=== PATIENT | female | born 2000 | race Caucasian/White ===

== ENCOUNTER 2022-11-22 14:45 | Outpatient (AMB) | payer OTHER, SELFPAY ==
--- NOTE | 2022-11-22 14:47 | MHC.OFFWIV ---
Intake Vital Signs 11/22/22 14:53 Height 5 ft 3 in Weight 152 lb BMI 26.9 BP 112/64 Blood Pressure Location Rt brachial Position Sitting Pulse 71 Pulse Source Pulse Oximeter Temp 97.8 F Temp Source Temporal Artery Scan Pulse Oximetry (%) 99 Intake Visit Reasons: EP, UTI? Intake Note: pt is here for possible uti Patient Tobacco Use Status: Never used Tobacco Allergies No Known Allergies Allergy (Verified 11/22/22 14:47) Do you need a note to return to daycare/school/sports/work: Yes HPI HPI Comments History of Present Illness Details This is a 22-year-old female who presents to the office today for sick visit. Patient complaining of urinary symptoms including dysuria and increased urinary frequency for the past 2 weeks that have been worsening over the past several days. She reports feeling weak and fatigued but she otherwise denies any fevers/chills or systemic symptoms including abdominal pain or nausea/vomiting/diarrhea. She denies any flank or back pain. PFSH Social History Patient Tobacco Use Status: Never used Tobacco Review of Systems Const All systems reviewed & are unremarkable except as noted in HPI and below Reports no additional complaints Eyes Reports no additional complaints ENT Reports no additional complaints Card Reports no additional complaints Resp Reports no additional complaints GI Reports no additional complaints Reports no additional complaints Musc Reports no additional complaints Skin/Breast Reports system reviewed and no additional complaints, except as documented Neuro Reports no additional complaints Psych Reports no additional complaints Endo Reports no additional complaints Will/Lymph Reports no additional complaints Aller/Immun Reports no additional complaints Physical Exam Vital Signs: Last Vital Signs Temp 97.8 F 11/22/22 14:53 Pulse 71 11/22/22 14:53 BP 112/64 11/22/22 14:53 Pulse Ox 99 11/22/22 14:53 BMI result Body Mass Index 26.9 Const General: cooperative, healthy appearing, no acute distress and well developed Orientation/consciousness: patient oriented x3 HEENT Head: Yes normal to inspection Ears: hearing grossly normal bilaterally General nose exam: Normal external nose present Face and sinus: Yes normal facial exam Mouth: Normal oral and palatal mucosa present Eyes General: appearance normal, both eyes and all related structures Pupils: Equal, round and reactive pupils present EOM: EOMs intact bilaterally Resp Effort & Inspection: normal respiratory effort and no respiratory distress Auscultation: clear to auscultation bilaterally Cardio Rate: regular rate Rhythm: regular rhythm Heart sounds: no gallops, no murmurs and no rubs Peripheral pulses: Peripheral pulses 2+ throughout GI Inspection: No distended Palpation (GI): Soft to palpation and nontender Auscultation: normal bowel sounds General: Yes no CVA tenderness Back/Spine/Pelvis Back: no CVA tenderness Skin General skin exam: no rashes or lesions noted Neuro General: patient oriented x3 Cranial nerves: Yes CN's II-XII intact bilaterally and Yes Equal, round and reactive pupils present Gait exam (Neuro): Normal gait present Motor exam (neuro): 5/5 motor strength present throughout Extrem General: Yes normal to inspection, Yes full ROM and Yes no clubbing, cyanosis or edema Psych Appearance: grossly normal Mental Status: mental status grossly normal Results AMB Urinalysis, Automated UA Leukoctes 15 Louann/uL Last Edit by Ana Maria Alas [facility] on 11/22/22 15:16 +- Ana Maria Alas 11/22/22 15:16 UA Nitrite Negative Last Edit by Ana Maria Alas [facility] on 11/22/22 15:16 UA Urobilinogen 0.2 mg/dL Last Edit by Ana Maria Alas [facility] on 11/22/22 15:16 UA Protein 0 mg/dL Last Edit by Ana Maria Alas [facility] on 11/22/22 15:16 UA pH 5.5 Last Edit by Ana Maria Alas [facility] on 11/22/22 15:16 UA Blood 0 Peewee/uL Last Edit by Ana Maria Alas [facility] on 11/22/22 15:16 UA Specific [place] 1.025 Last Edit by Ana Maria Alas [facility] on 11/22/22 15:16 UA Ketone Negative Last Edit by Ana Maria Alas [facility] on 11/22/22 15:16 UA Bilirubin 0 mg/dL Last Edit by Ana Maria Alas [facility] on 11/22/22 15:16 UA Glucose 0 mg/dL Last Edit by Ana Maria Alas [facility] on 11/22/22 15:16 Results Reviewed Results Reviewed: Laboratory Last Values Urine pH (Auto) 5.5 11/22/22 15:14 Specific [place] (Auto) 1.025 11/22/22 15:14 Urine Protein (Auto) 0 mg/dL 11/22/22 15:14 Glucose (UA)(Auto) 0 mg/dL 11/22/22 15:14 Urine Ketones (Auto) Negative 11/22/22 15:14 Urine Blood (Auto) 0 Peewee/uL 11/22/22 15:14 Urine Nitrite (Auto) Negative 11/22/22 15:14 Urine Bilirubin (Auto) 0 mg/dL 11/22/22 15:14 Urine Urobilinogen (Auto) 0.2 mg/dL 11/22/22 15:14 Leukocyte Esterase (Auto) 15 Louann/uL 11/22/22 15:14 Assessment & Plan Assessment & Plan (1) UTI (urinary tract infection): Code(s): N39.0 - Urinary tract infection, site not specified Plan: This is a 22-year-old female who presented to the office today complaining of urinary symptoms. Urinalysis shows positive leukocyte esterase consistent with an acute uncomplicated urinary tract infection. She has no flank pain or systemic symptoms to suggest pyelonephritis or ascending infection. Her vital signs are stable and her physical exam is benign. Patient is overall nontoxic appearing. Patient is safe to be discharged home. She was sent home on p.o. sulfamethoxazole trimethoprim twice daily x7 days as well as p.o. pyridium 3 times daily as needed x3 days. Urine was also sent for chlamydia/gonorrhea testing per patient request. Patient was advised to follow-up here or go directly to the emergency room if she were to develop flank/back pain, fever/chills, nausea/vomiting, or other systemic symptoms. Patient verbalized her understanding and she is in agreement with the plan. Orders: Orders CT NG by PCR Today R30.0 - Dysuria AMB Urinalysis Automated Today Z13.9 - Encounter for screening, unspecified Medications: New sulfamethoxazole-trimethoprim 800-160 mg (Bactrim DS) 1 tab PO BID 14 tabs 0RF phenazopyridine 200 mg PO TID PRN 9 tabs 0RF pain Coding Level of Care Code Est Pt Level 3 (61807) Diagnoses UTI (urinary tract infection) N39.0
[2022-11-22 14:53] VITALS: BP 112/64; PULSE 71; TEMP 36.6; O2SAT 99; BMI 26.9
== END 2022-11-22 15:34 | disposition home or self-care (01) ==
PROVIDERS: PCP Internal Medicine; Visit Provider Physician Assistant Medical
DX: N39.0 Urinary tract infection, site not specified (principal); R30.0 Dysuria
CPT/HCPCS: 81003; 99213

== ENCOUNTER 2022-11-22 15:36 | Outpatient (REF) | payer OTHER, SELFPAY | END 2022-11-22 15:37 | disposition home or self-care (01) | LOC: HO.LAB 15:36 | PROVIDERS: Visit Provider Physician Assistant Medical | DX: Z13.89 Encounter for screening for other disorder (principal) ==

== ENCOUNTER 2022-11-23 11:26 | Outpatient (REF) | payer OTHER, SELFPAY ==
[2022-11-23 14:48] LABS: CT PCR NOT DETECTED (Not Detect.); NG PCR NOT DETECTED (Not Detect.)
== END 2022-11-23 11:27 | disposition home or self-care (01) ==
LOC: HO.LNP 11:26
PROVIDERS: Visit Provider Physician Assistant Medical
DX: R30.0 Dysuria (principal)
CPT/HCPCS: 0353U

== ENCOUNTER 2023-04-09 08:26 | Outpatient (AMB) | payer OTHER, SELFPAY ==
--- NOTE | 2023-04-09 08:39 | MHC.OFFWIV ---
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 No urgency PFSH Social History Patient Tobacco Use Status: Never used Tobacco Review of Systems Const Denies chills, Denies fatigue and Denies fever(s) GI Reports abdominal pain, Reports constipation, Denies diarrhea, Denies nausea and Denies vomiting Denies abnormal menses, Denies abnormal vaginal bleeding, Denies hematuria, Denies urinary frequency, Denies difficulty voiding, Reports dysuria, Denies urinary urgency, Reports vaginal discharge and Reports vaginal pruritus Musc Denies back pain Skin/Breast Denies erythema and Denies rash Endo Denies fatigue Physical Exam Vital Signs: Last Vital Signs Temp 97.9 F 04/09/23 08:40 Pulse 76 04/09/23 08:40 BP 110/62 04/09/23 08:40 Pulse Ox 98 04/09/23 08:40 Oxygen Delivery Method Room Air 04/09/23 08:40 BMI result Body Mass Index 26.9 General: Non-toxic, NAD. Speaking full sentences. Skin: Warm dry throughout Respiratory: CTA bilaterally. No wheezes, rales or rhonchi Cardiac: RRR. No murmur Abdominal: No distention. : No external vaginal edema or rashes. No labial abscess or cyst. Verbal consent obtained and pelvic examination revealed slught edema of superior vaginal wall without discharge or masses noted. Cervix closed and in proper position. MA present during pelvic examination MSK: Full ROM extremities. Neurology: A/O. No aphasia or facial droop. Gait without abnormality Psych: Good mood and affect Results AMB Urinalysis, Automated UA Leukoctes 0 Louann/uL Last Edit by Catie Epps CMA on 04/09/23 08:57 UA Nitrite Negative Last Edit by Catie Epps, [facility] on 04/09/23 08:57 UA Urobilinogen 0.2 mg/dL Last Edit by Catie Epps, [facility] on 04/09/23 08:57 UA Protein 0 mg/dL Last Edit by Catie Epps, [facility] on 04/09/23 08:57 UA pH 6.0 Last Edit by Catie Epps, [facility] on 04/09/23 08:57 UA Blood 0 Peewee/uL Last Edit by Catie Epps, [facility] on 04/09/23 08:57 UA Specific [place] 1.030 Last Edit by Catie Epps, [facility] on 04/09/23 08:57 UA Ketone Negative Last Edit by Catie Epps CMA on 04/09/23 08:57 UA Bilirubin 0 mg/dL Last Edit by Catie Epps CMA on 04/09/23 08:57 UA Glucose 0 mg/dL Last Edit by Catie Epps CMA on 04/09/23 08:57 AMB Test Urine AMB Test Urine Negative Last Edit by Adelina Rojas CMA on 04/09/23 09:05 Results Reviewed Results Reviewed: Laboratory Last Values Urine pH (Auto) 6.0 04/09/23 08:55 Specific [place] (Auto) 1.030 04/09/23 08:55 Urine Protein (Auto) 0 mg/dL 04/09/23 08:55 Glucose (UA)(Auto) 0 mg/dL 04/09/23 08:55 Urine Ketones (Auto) Negative 04/09/23 08:55 Urine Blood (Auto) 0 Peewee/uL 04/09/23 08:55 Urine Nitrite (Auto) Negative 04/09/23 08:55 Urine Bilirubin (Auto) 0 mg/dL 04/09/23 08:55 Urine Urobilinogen (Auto) 0.2 mg/dL 04/09/23 08:55 Leukocyte Esterase (Auto) 0 Louann/uL 04/09/23 08:55 Assessment & Plan Assessment & Plan (1) Vaginal discharge: Code(s): N89.8 - Other specified noninflammatory disorders of vagina Plan: Patient seen and evaluated. Vaginal examination was completed and there was no sign of trauma or labial cyst/abscess. No uterine prolapse or mass urine - infection hcg - chlamydia/gonorrhea: urine obtained and sent BV panel: obtained after pelvic examination [employer] follow up ER if worse Vaginal rest Patient gave verbal understanding and had no additional questions or concerns at time of discharge All questions answered Orders: Orders AMB HCG Urine Test Today N89.8 - Other specified noninflammatory disorders of vagina Bacterial Vaginosis Panel Today N89.8 - Other specified noninflammatory disorders of vagina AMB Urinalysis Automated Today Z13.9 - Encounter for screening, unspecified CT NG by PCR Today N89.8 - Other specified noninflammatory disorders of vagina Coding Level of Care Code Est Pt Level 4 (20659) Diagnoses Vaginal discharge N89.8
[2023-04-09 08:40] VITALS: BP 110/62; PULSE 76; TEMP 36.6; O2SAT 98; BMI 26.9
== END 2023-04-09 10:13 | disposition home or self-care (01) ==
PROVIDERS: PCP Internal Medicine; Visit Provider Physician Assistant
DX: N89.8 Other specified noninflammatory disorders of vagina (principal); R30.0 Dysuria; Z32.02 Encounter for pregnancy test, result negative
CPT/HCPCS: 81003; 81025; 99214

== ENCOUNTER 2023-04-09 10:51 | Outpatient (REF) | payer OTHER, SELFPAY ==
[2023-04-09 14:38] LABS: CT PCR NOT DETECTED (Not Detect.); NG PCR NOT DETECTED (Not Detect.)
[2023-04-10 09:22] LABS: BV Int Neg Control Negative (Negative); BV Int Pos Control Positive (Positive)
== END 2023-04-09 10:52 | disposition home or self-care (01) ==
LOC: HO.LAB 10:51
PROVIDERS: Visit Provider Physician Assistant
DX: N89.8 Other specified noninflammatory disorders of vagina (principal)
CPT/HCPCS: 0353U; 87480; 87510; 87660

== ENCOUNTER 2023-06-09 09:47 | Outpatient (AMB) | payer OTHER, SELFPAY ==
[2023-06-09 10:04] VITALS: BP 100/70; PULSE 88; O2SAT 98; BMI 26.5
--- NOTE | 2023-06-09 10:04 | MHC.PC.OV ---
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 She is up-to-date with her cervical cancer screening done in 2020 as per her medical record. Has history of anxiety disorder, previously on Zoloft 50 mg daily which she stopped taking as she states it was making her feel like a zombie. Would like a referral to see a therapist, but does not want to start any medications at present time. She has an appointment already scheduled with an OBGYN [facility] later this week. Complains of feeling tired all the time, with difficulty keeping her concentration and focus at work. [facility] Medical History (Updated 06/09/23 @ 15:09 by Yarelis Crane MD) Mixed anxiety and depressive disorder History of hemorrhoids Family history of thyroid cancer Family History (Updated 06/09/23 @ 10:54 by Yarelis Crane MD) Mother Acquired hypothyroidism Mental health disorder Mother No problems noted. Maternal Grandmother Thyroid cancer Breast cancer Maternal Grandfather Essential hypertension Coronary artery arteriosclerosis Diabetes mellitus Brother Rheumatoid arthritis Social History Housing: Apartment Patient Tobacco Use Status: Never used Tobacco e-Cigarette/Vaping Use: Currently Using service: Yes Current occupational status: employed Cognitive needs: No Hearing needs: No Vision needs: Yes Female Reproductive History Menstrual Date of last menstrual period: 05/08/23 control method: none Date of last pap smear: 07/19/20 (Done in the [facility] while she is on active due) Other: Goes to [facility] [place] in [place], has an appointment later this week for her routine Pap and pelvic exam and to discuss control Questionnaire PHQ-9 Over the last 2 weeks, how often have you been bothered by any of the following problems? 1. Little interest or pleasure in doing things: several days 2. Feeling down, depressed, or hopeless: more than half the days 3. Trouble falling or staying asleep, or sleeping too much: nearly every day 4. Feeling tired or having little energy: more than half the days 5. Poor appetite or overeating: several days 6. Feeling bad about yourself - or that you are a failure or have let yourself or your family down: several days 7. Trouble concentrating on things, such as reading the newspaper or watching television: nearly every day 8. Moving or speaking so slowly that other people could have noticed. Or the opposite - being so fidgety or restless that you have been moving around a lot more than usual: more than half the days 9. Thoughts that you would be better off or of hurting yourself in some way: not at all Total score: 15 Depression Screening Interpretation: Positive (Referred to Anjana certified mental health worker for help with referral to see a therapist) Depression Screening Follow-up: Existing condition and Community Mental Health Worker F/U Depression Screening Done: Yes 03504 - PHQ-9 Billing: Yes Source: Developed by Drs. Jono Russo, Steph Alanis, Roberto Garcia and colleagues, with an educational lawson from [employer]. Thrive Questionnaire Date Thrive assessed: 06/09/23 I am a: Patient What is your living situation today?: I have a steady place to live Within the past 12 months, did the food you bought not last and you didn't have the money to get more?: Sometimes True Within the past 12 months, did you worry whether your food would run out before you got money to buy more?: Never true Do you have trouble paying for medicines?: No Do you have trouble getting transportation to medical appointments?: No Do you have trouble taking care of your child, family member or friend?: No Do you have trouble with day-to-day activities such as bathing, preparing meals, shopping, managing finances, etc.?: No Are you currently unemployed and looking for a job?: No Are you interested in more education?: No THRIVE Score: 1 AUDIT C Alcohol Use Questionnaire (AUDIT-C) 1. How often do you have a drink containing alcohol?: Never Total Score: 0 MOIRA-7 AMB Questionnaire MOIRA-7 Date MOIRA - 7 assessed: 06/09/23 Feeling nervous, anxious, or on edge: 2 = More than half the days Not being able to stop or control worryin = Several days Worrying too much about different things: 2 = More than half the days Trouble relaxin = Several days Being so restless that it is hard to sit still: 2 = More than half the days Becoming easily annoyed or irritable: 3 = Nearly every day Feeling afraid as if something awful might happen: 1 = Several days Total MOIRA-7 score (0-4 normal; 5-9 mild; 10-14 moderate; 15-21 severe): 12 Source: Developed by Drs. Jono Russo, Steph Alanis, Roberto Garcia and colleagues, with an educational lawson from [employer]. MOIRA-7 Assessment Billing MOIRA-7 Assessment Tool: MOIAR-7 Assessment 01286 Review of Systems Const Reports as per HPI and Reports no additional complaints Eyes Details: Up-to-date with her eye exam went to [place], [place] , prescribed blue light glasses for Eye strain ENT Reports no additional complaints Card Denies chest pain, Denies rapid heart rate, Denies irregular heart rhythm, Denies lightheadedness and Denies dyspnea Resp Denies cough and Denies dyspnea GI Denies abdominal pain, Denies change in bowel habits, Denies change in stool character and Denies heartburn Reports no additional complaints Musc Reports no additional complaints Skin/Breast Denies breast pain, Denies breast mass and Denies rash Neuro Reports no additional complaints Psych Reports as per HPI Endo Reports no additional complaints Will/Lymph Reports no additional complaints Aller/Immun Reports no additional complaints Physical exam (Primary Care) Vital Signs: Last Vital Signs Pulse 88 06/09/23 10:04 BP 100/70 06/09/23 10:04 Pulse Ox 98 03/11/24 10:04 Oxygen Delivery Method Room Air 06/09/23 10:04 BMI result Body Mass Index 26.5 Tobacco/Smoking Status: Tobacco use Status Tobacco use date assessed 06/09/23 06/09/23 10:23 Patient Tobacco Use Status Never used Tobacco 06/09/23 10:07 e-Cigarette/Vaping Use Currently Using 06/09/23 10:23 PHQ-9: PHQ-9 Score PHQ-9: Total score 15 06/09/23 10:54 Depression Screening Interpretation: Positive (Referred to Anjana certified mental health worker for help with referral to see a therapist) Depression Screening Follow-up: Existing condition and Community Mental Health Worker F/U Thrive Assessment: Date of Thrive Assessment Date Thrive assessed 06/09/23 06/09/23 10:28 Const General: no acute distress and alert Nutritional Appearance: overweight Orientation/consciousness: patient oriented x3 HENMT Head: Yes normocephalic and Yes atraumatic Ears: external ears normal, TM's normal bilaterally and EAC's normal General nose exam: Normal external nose present and No nasal discharge present Face and sinus: Yes face symmetric Mouth: Normal oral and palatal mucosa present, lip normal, tongue normal, oropharynx normal and moist mucous membranes Eyes General: appearance normal, both eyes and all related structures Eyelids: Yes eyelids normal Conjunctivae: conjunctivae normal Sclerae: sclerae normal Pupils: Equal, round and reactive pupils present EOM: EOMs intact bilaterally Neck Neck: Yes full ROM, Yes no lymphadenopathy and Yes supple Thyroid: Thyroid normal Chest Breast/axilla inspection: normal inspection of the breasts Breast/axilla palpation: normal palpation of the breasts Resp Effort & Inspection: normal respiratory effort and able to speak in complete sentences Auscultation: clear to auscultation bilaterally Cardio Rate: regular rate Rhythm: regular rhythm Heart sounds: S1 normal heart sound present and S2 normal heart sound present GI Palpation (GI): Soft to palpation, nontender, no guarding and no masses Auscultation: normal bowel sounds General: Yes no CVA tenderness Back/Spine/Pelvis Back: no CVA tenderness and No back tenderness Skin General skin exam: no rashes or lesions noted Neuro General: patient oriented x3, gait normal, moves all extremities, Normal light touch and pain sensation, no focal motor deficits and CN's II-XI intact bilaterally Cranial nerves: Yes Equal, round and reactive pupils present Cognition (Neuro): normal cognition Gait exam (Neuro): Normal gait present Motor exam (neuro): 5/5 motor strength present throughout Extrem General: Yes normal to inspection, Yes full ROM, Yes no joint enlargement, Yes no pedal edema and Yes normal gait Psych Appearance: grossly normal and well kempt Mental Status: mental status grossly normal Speech and movement: Normal speech and movement present Affect: normal affect Attitude: cooperative Thought process: Normal thought process present Thought content: Normal thought content present Assessment and Plan Assessment & Plan (1) Annual visit for general adult medical examination with abnormal findings: Code(s): Z00.01 - Encounter for general adult medical examination with abnormal findings Plan: Will check appropriate labs. Recommended dental visit every 6 months and regular eye exams, currently up-to-date. Take adequate calcium in diet and vitamin-D 3 at 2000 IU per cap once a day, in addition to weight-bearing exercises to help maintain good muscle tone and weight control. Instructed to do self-breast exam, has an appointment with an OBGYN in [place] later this week for her routine Pap and pelvic exam and to discuss control. She is [place] Family history of thyroid cancer: Code(s): Z80.8 - Family history of malignant neoplasm of other organs or systems Plan: Thyroid function test ordered (3) Mixed anxiety and depressive disorder: Code(s): F41.8 - Other specified anxiety disorders Plan: Has tried Zoloft in the past which made her feel more anxious and numb . Referred to our CMW, for assistance in getting an appointment for therapy, declines to start medication at present time. Orders: Orders Comprehensive [place]. Panel Fast Today Z00.01 - Encounter for general adult medical examination with abnormal findings, Z13.220 - Encounter for screening for lipoid disorders, Z80.8 - Family history of malignant neoplasm of other organs or systems, Z83.3 - Family history of diabetes mellitus Thyroid Peroxidase Antibodies Today Z00.01 - Encounter for general adult medical examination with abnormal findings, Z13.220 - Encounter for screening for lipoid disorders, Z80.8 - Family history of malignant neoplasm of other organs or systems, Z83.3 - Family history of diabetes mellitus Complete Blood Count Auto Diff Today Z00.01 - Encounter for general adult medical examination with abnormal findings, Z13.220 - Encounter for screening for lipoid disorders, Z80.8 - Family history of malignant neoplasm of other organs or systems, Z83.3 - Family history of diabetes mellitus TSH reflex Free T4 Today Z00.01 - Encounter for general adult medical examination with abnormal findings, Z13.220 - Encounter for screening for lipoid disorders, Z80.8 - Family history of malignant neoplasm of other organs or systems, Z83.3 - Family history of diabetes mellitus Lipid Panel Today Z00.01 - Encounter for general adult medical examination with abnormal findings, Z13.220 - Encounter for screening for lipoid disorders, Z80.8 - Family history of malignant neoplasm of other organs or systems, Z83.3 - Family history of diabetes mellitus Vitamin D 25-OH Total Today Z00.01 - Encounter for general adult medical examination with abnormal findings, Z13.220 - Encounter for screening for lipoid disorders, Z80.8 - Family history of malignant neoplasm of other organs or systems, Z83.3 - Family history of diabetes mellitus Coding Level of Care Code New Pt Prev Care 18-39yr([id number] Diagnoses Annual visit for general adult medical examination with abnormal findings Z00.01 Family history of thyroid cancer Z80.8 Mixed anxiety and depressive disorder F41.8 Additional Codes MOIRA-7 Assessment Billing - MOIRA-7 Assessment Tool: MOIRA-7 Assessment [id number] ([id number])
== END 2023-06-09 11:14 | disposition home or self-care (01) ==
PROVIDERS: PCP Internal Medicine; Visit Provider Internal Medicine
DX: Z00.00 Encounter for general adult medical examination without abnormal findings (principal); Z80.8 Family history of malignant neoplasm of other organs or systems; F41.8 Other specified anxiety disorders
CPT/HCPCS: 99395

== ENCOUNTER 2023-06-09 11:29 | Outpatient (REF) | payer OTHER, SELFPAY ==
[2023-06-09 13:01] LABS: MANUAL DIFF FLAG NO
[2023-06-09 13:22] LABS: Basophils Absolute Auto 0.1 X10*3/uL (0.0-0.2); Basophils Percent Auto 0.6 % (0-2); Eosinophils Absolute Auto 0.1 X10*3/uL (0.0-0.4); Eosinophils Percent Auto 0.7 % (0-4); Hematocrit 45.7 % (37.0-47.0); Hemoglobin 15.3 g/dl (12.0-16.0); Imm Gran Abs Auto 0.03 X10*3/uL (0.00-0.03); Imm Gran Pct Auto 0.4 % (0.0-0.4); Lymphocytes Absolute Auto 2.4 X10*3/uL (1.2-4.9); Lymphocytes Percent Auto 30.2 % (20-40); Mean Corpuscular HGB Conc 33.5 g/dl (31.0-35.0); Mean Corpuscular Hemoglobin 31.2 pg (27.0-33.0); Mean Corpuscular Volume 93.3 fL (80.0-98.0); Mean Platelet Volume 10.3 fL (9.4-12.3); Monocytes Absolute Auto 0.4 X10*3/uL (0.1-1.2); Monocytes Percent Auto 4.8 % (2-11); Neutrophils Absolute Auto 5.1 x10*3/uL (2.0-8.3); Neutrophils Percent Auto 63.3 % (45-73); Platelet Count 270 X10*3/uL (160-400); Red Cell Distribution Width 11.9 % (11.0-16.0); White Blood Count 8.1 X10*3/uL (4.8-10.8)
[2023-06-09 13:39] LABS: Alanine Aminotransferase 10 U/L (0-31); Albumin Level 4.6 g/dL (3.5-5.0); Alkaline Phosphatase 47 U/L (39-117); Anion Gap 12 (12-20); Aspartate Amino Transferase 18 U/L (5-31); Bilirubin Total 0.3 mg/dL (0.0-1.0); Blood Urea Nitrogen 5 mg/dL (9-16); Calcium 9.8 mg/dL (8.4-10.2); Carbon Dioxide 27 mmol/L (22-29); Chloride 108 mmol/L (96-108); Cholesterol 186 mg/dL (<200); Estimated Glomerular Filt Rate > 60; Glucose Fasting 92 mg/dL (60-99); HDL Cholesterol 48 mg/dL (>40); LDL Cholesterol Calculated 125 mg/dL (<100); Potassium 4.5 mmol/L (3.3-5.1); Sodium 142 mmol/L (135-145); Total Protein 7.7 g/dL (6.5-8.0); Triglycerides 66 mg/dL (<150)
[2023-06-09 13:54] LABS: TSH reflex Free T4 1.01 uIU/mL (0.32-4.0); Vitamin D 25-OH Total 49.3 ng/mL (>30)
[2023-06-10 22:43] LABS: Thyroid Peroxidase Antibodies 3 IU/mL (<9)
== END 2023-06-09 11:30 | disposition home or self-care (01) ==
LOC: HO.HMGCLDS 11:29
PROVIDERS: PCP Internal Medicine; Visit Provider Internal Medicine
DX: Z00.01 Encounter for general adult medical examination with abnormal findings (principal); Z13.220 Encounter for screening for lipoid disorders; Z13.6 Encounter for screening for cardiovascular disorders; Z80.8 Family history of malignant neoplasm of other organs or systems; Z83.3 Family history of diabetes mellitus
CPT/HCPCS: 36415; 80053; 80061; 82306; 84443; 85025; 86376

== ENCOUNTER 2023-08-12 13:07 | Outpatient (AMB) | payer OTHER, SELFPAY ==
[2023-08-12 13:14] VITALS: BP 106/70; PULSE 87; O2SAT 99; BMI 25.2
--- NOTE | 2023-08-12 13:14 | MHC.PC.OV ---
Vital Signs 08/12/23 13:14 Height 5 ft 2 in Weight 138 lb BMI 25.2 BP 106/70 Blood Pressure Location Lt brachial Position Sitting Pulse 87 Pulse Source Pulse Oximeter Pulse Oximetry (%) 99 Oxygen Delivery Method Room Air Intake Visit Reasons: Allergy testing, and referral to honeycomb blanket maker Intake Note: Pt is here today for a sick visit. Pt c/o burning when urinating since Friday. Pt states that she bought otc Azo but she is still having the symptoms. Pt also needs a referral to Reinforced Concrete Inspector. Allergies No Known Allergies Allergy (Verified 08/12/23 13:24) Medication List - Last Reconciled 08/12/23 by Yarelis Crane MD drospirenone-ethinyl estradiol 3-0.02 mg (Roma (28)) 1 tab PO DAILY Tobacco use date assessed: 06/09/23 Dental Screening Dental Screen Date: 06/09/23 HPI Allergy testing, and referral to honeycomb blanket maker HPI Details 23-year-old lady here today complaining of dysuria, urinary urgency and frequency, and lower abdominal discomfort, which started 3 days ago. Patient states that she frequently gets urinary tract infections after sexual intercourse in just had 1 prior to onset of present symptoms. Urine dipstick done today came back positive for nitrites and leukocytes. She also has been having recurrent facial acne mainly on her chin area. She has tried [id number]-taydalt benzoyl peroxide, acne medications [id number] which affords only slight relief. Previously was on Accutane before by her given by her honeycomb blanket maker , requesting referral to see another honeycomb blanket maker in the area. [facility] Medical History Acne vulgaris Mixed anxiety and depressive disorder History of hemorrhoids Family history of thyroid cancer Family History Mother Acquired hypothyroidism Mental health disorder Mother No problems noted. Maternal Grandmother Thyroid cancer Breast cancer Maternal Grandfather Essential hypertension Coronary artery arteriosclerosis Diabetes mellitus Brother Rheumatoid arthritis Social History Housing: Apartment Patient Tobacco Use Status: Never used Tobacco e-Cigarette/Vaping Use: Currently Using service: Yes Current occupational status: employed Cognitive needs: No Hearing needs: No Vision needs: Yes Questionnaire Thrive Questionnaire Date Thrive assessed: 06/09/23 MOIRA-7 AMB Questionnaire MOIRA-7 Date MOIRA - 7 assessed: 06/09/23 Source: Developed by Drs. Jono Russo, Steph Alanis, Roberto Garcia and colleagues, with an educational lawson from [employer]. Review of Systems Const Denies chills and Denies fever(s) Card Reports no additional complaints Resp Reports no additional complaints GI Reports no additional complaints Reports as per HPI Musc Reports no additional complaints Skin/Breast Reports as per HPI Physical exam (Primary Care) Vital Signs: Last Vital Signs Pulse 87 08/12/23 13:14 BP 106/70 08/12/23 13:14 Pulse Ox 99 08/12/23 13:14 Oxygen Delivery Method Room Air 08/12/23 13:14 BMI result Body Mass Index 25.2 Tobacco/Smoking Status: Tobacco use Status Tobacco use date assessed 06/09/23 08/12/23 13:21 Patient Tobacco Use Status Never used Tobacco 08/12/23 13:21 e-Cigarette/Vaping Use Currently Using 08/12/23 13:21 Thrive Assessment: Date of Thrive Assessment Date Thrive assessed 06/09/23 08/12/23 13:21 Const General: no acute distress and alert Nutritional Appearance: overweight HENMT Mouth: Normal oral and palatal mucosa present, oropharynx normal and moist mucous membranes Eyes General: appearance normal, both eyes and all related structures Neck Neck: Yes full ROM, Yes no lymphadenopathy and Yes supple Thyroid: Thyroid normal Resp Effort & Inspection: normal respiratory effort and able to speak in complete sentences Auscultation: clear to auscultation bilaterally Cardio Rate: regular rate Rhythm: regular rhythm Heart sounds: S1 normal heart sound present and S2 normal heart sound present GI Palpation (GI): Soft to palpation, nontender, no guarding and no masses Auscultation: normal bowel sounds Skin Other: Erythematous papular fusion scattered on lower face and chin area left more than the right Extrem General: Yes normal to inspection, Yes full ROM, Yes no joint enlargement, Yes no pedal edema and Yes normal gait Results AMB Urinalysis, Automated UA Leukoctes 70 Louann/uL Last Edit by Smiley Loyola CMA on 08/12/23 13:29 UA Nitrite Positive Last Edit by Smiley Loyola CMA on 08/12/23 13:29 UA Urobilinogen 1 mg/dL Last Edit by Smiley Loyola CMA on 08/12/23 13:29 UA Protein 0 mg/dL Last Edit by Smiley Loyola CMA on 08/12/23 13:29 UA pH 6.0 Last Edit by Smiley Loyola CMA on 08/12/23 13:29 UA Blood 0 Peewee/uL Last Edit by Smiley Loyola CMA on 08/12/23 13:29 UA Specific [place] 1.025 Last Edit by Smiley Loyola CMA on 08/12/23 13:29 UA Ketone Negative Last Edit by Smiley Loyola CMA on 08/12/23 13:29 UA Bilirubin 1 mg/dL Last Edit by Smiley Loyola CMA on 08/12/23 13:29 UA Glucose 0 mg/dL Last Edit by Smiley Loyola CMA on 08/12/23 13:29 Results Reviewed Results Reviewed: Laboratory Last Values Urine pH (Auto) 6.0 08/12/23 13:26 Specific [place] (Auto) 1.025 08/12/23 13:26 Urine Protein (Auto) 0 mg/dL 08/12/23 13:26 Glucose (UA)(Auto) 0 mg/dL 08/12/23 13:26 Urine Ketones (Auto) Negative 08/12/23 13:26 Urine Blood (Auto) 0 Peewee/uL 08/12/23 13:26 Urine Nitrite (Auto) Positive 08/12/23 13:26 Urine Bilirubin (Auto) 1 mg/dL 08/12/23 13:26 Urine Urobilinogen (Auto) 1 mg/dL 08/12/23 13:26 Leukocyte Esterase (Auto) 70 Louann/uL 08/12/23 13:26 Assessment and Plan Assessment & Plan (1) Acne vulgaris: Code(s): L70.0 - Acne vulgaris Plan: Continue using CeraVe wash declines skin at night, prescription sent for the adapalene gel to apply to affected areas at bedtime. Use sunscreen when going out at . Referral to [facility] dermatology ordered (2) Urinary tract infection: Code(s): N39.0 - Urinary tract infection, site not specified Qualifiers: Urinary tract infection type: acute cystitis Hematuria presence: without hematuria Qualified Code(s): N30.00 - Acute cystitis without hematuria Plan: Sent from nitrofurantoin 100 mg per capsule to take 1 every 12 hours for 10 days. Take it with food. Advised to urinate right away after sexual intercourse, recommend to have partner use a condom during sexual intercourse prescription also sent for Diflucan to take as needed for any development of yeast infection while taking antibiotics. Orders: Orders AMB Urinalysis Automated Today Z13.9 - Encounter for screening, unspecified Referrals Dermatology Referral L70.0 - Acne vulgaris Medications: New adapalene 0.1% (Differin) 1 appl topical BEDTIME 15 grams 0RF nitrofurantoin monohyd/m-cryst 100 mg must administer with a meal/food 100 mg PO Q12H 20 caps 0RF 10 days fluconazole 150 mg PO Q3D PRN 2 tabs 0RF Vaginal candidiasis 2 doses Coding Level of Care Code Est Pt Level 4 (80090) Diagnoses Acne vulgaris L70.0 Acute cystitis without hematuria N30.00 Urinary tract infection type: acute cystitis Hematuria presence: without hematuria
== END 2023-08-12 15:43 | disposition home or self-care (01) ==
PROVIDERS: PCP Internal Medicine; Visit Provider Internal Medicine
DX: L70.0 Acne vulgaris (principal); N30.00 Acute cystitis without hematuria; Z13.9 Encounter for screening, unspecified
CPT/HCPCS: 81003; 99214

== ENCOUNTER 2023-09-16 10:08 | Outpatient (AMB) | payer OTHER, SELFPAY ==
[2023-09-16 10:48] VITALS: BP 102/70; PULSE 72; O2SAT 99; BMI 25.6
--- NOTE | 2023-09-16 10:48 | A.OFFPC_ITS ---
Vital Signs 09/16/23 10:48 Height 5 ft 2 in Weight 140 lb BMI 25.6 BP 102/70 Blood Pressure Location Rt brachial Position Sitting Pulse 72 Pulse Source Pulse Oximeter Pulse Oximetry (%) 99 Oxygen Delivery Method Room Air Intake Visit Reasons: discuss medication Intake Note: Pt is here today to discuss medication for Wellbutryn Allergies No Known Allergies Allergy (Verified 09/17/23 03:53) Medication List - Last Reconciled 09/17/23 by Yarelis Crane MD adapalene 0.1% (Differin) 1 appl topical BEDTIME bupropion HCl XL (Wellbutrin XL) 150 mg PO QAM drospirenone-ethinyl estradiol 3-0.02 mg (Roma (28)) 1 tab PO DAILY Tobacco use date assessed: 09/16/23 Dental Screening Dental Screen Date: 06/09/23 Did you have a dental visit in the last 12 months?: Yes Did you have a dental problem in the last 6 months where you did not have access to dental care?: Yes Was dental information given to patient?: Patient has dentist HPI discuss medication HPI Details 23-year-old lady here today for follow-u p. She has been seeing a therapist at [facility] and was recently seen by Psychiatrist who diagnosed her with persistent depressive disorder with anxious distress and ADHD. Recommendation was to start on Wellbutrin XL 150 mg to take 1 in the morning and increase to 300 mg XL daily after 2 weeks. If no improvement after 4-6 weeks, d ose can be increased up to a maximal for review 2 mg XL once a day based on tolerability and efficacy. Advised to continue with therapy. [facility] Medical History (Updated 09/17/23 @ 04:00 by Yarelis Crane MD) ADHD Persistent depressive disorder with anxious distress, currently moderate Acne vulgaris History of hemorrhoids Family history of thyroid cancer Family History Mother Acquired hypothyroidism Mental health disorder Mother No problems noted. Maternal Grandmother Thyroid cancer Breast cancer Maternal Grandfather Essential hypertension Coronary artery arteriosclerosis Diabetes mellitus Brother Rheumatoid arthritis Social History Housing: Apartment Patient Tobacco Use Status: Never used Tobacco e-Cigarette/Vaping Use: Currently Using service: Yes Current occupational status: employed Cognitive needs: No Hearing needs: No Vision needs: Yes Questionnaire PHQ-9 Over the last 2 weeks, how often have you been bothered by any of the following problems? 1. Little interest or pleasure in doing things: more than half the days 2. Feeling down, depressed, or hopeless: more than half the days 3. Trouble falling or staying asleep, or sleeping too much: more than half the days 4. Feeling tired or having little energy: nearly every day 5. Poor appetite or overeating: more than half the days 6. Feeling bad about yourself - or that you are a failure or have let yourself or your family down: nearly every day 7. Trouble concentrating on things, such as reading the newspaper or watching television: nearly every day 8. Moving or speaking so slowly that other people could have noticed. Or the opposite - being so fidgety or restless that you have been moving around a lot more than usual: more than half the days 9. Thoughts that you would be better off or of hurting yourself in some way: not at all Total score: 19 Depression Screening Interpretation: Positive Depression Screening Follow-up: Existing condition, New Medication prescribed and Community Mental Health Worker F/U Depression Screening Done: Yes 91093 - PHQ-9 Billing: Yes Source: Developed by Drs. Jono Russo, Steph Alanis, Roberto Garcia and colleagues, with an educational lawson from [employer]. Thrive Questionnaire Date Thrive assessed: 06/09/23 MOIRA-7 AMB Questionnaire MOIRA-7 Date MOIRA - 7 assessed: 09/16/23 Feeling nervous, anxious, or on edge: 2 = More than half the days Not being able to stop or control worryin = Several days Worrying too much about different things: 1 = Several days Trouble relaxin = More than half the days Being so restless that it is hard to sit still: 3 = Nearly every day Becoming easily annoyed or irritable: 3 = Nearly every day Feeling afraid as if something awful might happen: 2 = More than half the days Total MOIRA-7 score (0-4 normal; 5-9 mild; 10-14 moderate; 15-21 severe): 14 Source: Developed by Quentin Linoet B.W. Zeke, Roberto Garcia and colleagues, with an educational lawson from [employer]. MOIRA-7 Assessment Billing MOIRA-7 Assessment Tool: MOIRA-7 Assessment 45688 Review of Systems Card Reports no additional complaints Resp Reports no additional complaints GI Reports no additional complaints Reports as per HPI Musc Reports no additional complaints Skin/Breast Reports as per HPI Psych Reports as per HPI Physical exam (Primary Care) Vital Signs: Last Vital Signs Pulse 72 09/16/23 10:48 BP 102/70 09/16/23 10:48 Pulse Ox 99 09/16/23 10:48 Oxygen Delivery Method Room Air 09/16/23 10:48 BMI result Body Mass Index 25.6 Tobacco/Smoking Status: Tobacco use Status Tobacco use date assessed 09/16/23 09/16/23 10:52 Patient Tobacco Use Status Never used Tobacco 09/16/23 10:52 e-Cigarette/Vaping Use Currently Using 09/16/23 10:52 PHQ-9: PHQ-9 Score PHQ-9: Total score 19 09/16/23 11:21 Depression Screening Interpretation: Positive Depression Screening Follow-up: Existing condition, New Medication prescribed and Community Mental Health Worker F/U Thrive Assessment: Date of Thrive Assessment Date Thrive assessed 06/09/23 09/16/23 10:52 Const General: no acute distress and alert Nutritional Appearance: overweight Neck Neck: Yes full ROM, Yes no lymphadenopathy and Yes supple Thyroid: Thyroid normal Resp Effort & Inspection: normal respiratory effort and able to speak in complete sentences Auscultation: clear to auscultation bilaterally Cardio Rate: regular rate Rhythm: regular rhythm Heart sounds: S1 normal heart sound present and S2 normal heart sound present GI Palpation (GI): Soft to palpation, nontender, no guarding and no masses Auscultation: normal bowel sounds Extrem General: Yes normal to inspection, Yes full ROM, Yes no joint enlargement, Yes no pedal edema and Yes normal gait Psych Appearance: grossly normal and well kempt Mental Status: mental status grossly normal Speech and movement: Normal speech and movement present Affect: normal affect Assessment and Plan Assessment & Plan (1) Persistent depressive disorder with anxious distress, currently moderate: Code(s): F34.1 - Dysthymic disorder (2) ADHD: Code(s): F90.9 - Attention-deficit hyperactivity disorder, unspecified type Plan Advised to continue with therapy at [facility], started on Wellbutrin XL 150 mg per tablet to take once a day in a.m.,and increase to 300 mg XL daily after 2 weeks. If no improvement after 4-6 weeks, dose can be increased up to a maximal for review 2 mg XL once a day based on tolerability and efficacy. Discussed possible side effects of medication which includes insomnia if medication taken late in the day, decreased appetite. Will see her back for follow-up in four weeks via telehealth. Referred to Anjana alston certified mental health worker, to assist patient in getting in to be seen and followed by psychiatry for her ADHD and depression Medications: New bupropion HCl XL (Wellbutrin XL) Take 150 mg per tab in a.m., and may increase dose to 2 tablets or 300 mg p.o. in a.m. after 2 weeks as needed for control of depression 150 mg PO QAM 30 tabs 1RF Coding Level of Care Code Est Pt Level 4 (61622) Diagnoses Persistent depressive disorder with anxious distress, currently moderate F34.1 ADHD F90.9 Additional Codes MOIRA-7 Assessment Billing - MOIRA-7 Assessment Tool: MOIRA-7 Assessment 32008 ([id number])
== END 2023-09-16 11:20 | disposition home or self-care (01) ==
PROVIDERS: PCP Internal Medicine; Visit Provider Internal Medicine
DX: F34.1 Dysthymic disorder (principal); F90.9 Attention-deficit hyperactivity disorder, unspecified type
CPT/HCPCS: 96127; 99214

== ENCOUNTER 2023-10-10 08:28 | Outpatient (AMB) | payer OTHER, SELFPAY ==
--- NOTE | 2023-10-10 08:25 | A.OFFPC_ITS ---
Intake Visit Reasons: discuss med Iphone [phone] Intake Note: Pt is having a telehealth visit to discuss med Wellbutrin Allergies No Known Allergies Allergy (Verified 10/10/23 09:11) Medication List - Last Reconciled 10/10/23 by Yarelis Crane MD adapalene 0.1% (Differin) 1 appl topical BEDTIME bupropion HCl XL (Wellbutrin XL) 150 mg PO QAM drospirenone-ethinyl estradiol 3-0.02 mg (Roma (28)) 1 tab PO DAILY Tobacco use date assessed: 10/10/23 Dental Screening Dental Screen Date: 10/10/23 Did you have a dental visit in the last 12 months?: Yes Did you have a dental problem in the last 6 months where you did not have access to dental care?: Yes Was dental information given to patient?: Patient has dentist HPI discuss med Iphone [phone] HPI Details 23-year-old lady with depression/anxiety and possible ADD, here today for follow-up. She is currently taking bupropion HCL 150 mg per tablet taken once in the morning. She has been tolerating the medication, denies any insomnia, no loss of appetite reported. She still had been having depression, with labile mood, but feels that it has been helping a little bit with keeping her focus at work. Not feel however that she has been taking it long enough to feel its full potential, would like to continue taking the medication at the same dose. She was supposed to see a therapist/psychiatrist at [email or web address] by telehealth 09/04/2023 but she received a phone call from them counseling or appointment stating that they do need a referral for her to be seen. Patient states that she feels that they are a little bit sketchy , and would like to be referred somewhere else. [facility] Medical History ADHD Persistent depressive disorder with anxious distress, currently moderate Acne vulgaris History of hemorrhoids Family history of thyroid cancer Family History Mother Acquired hypothyroidism Mental health disorder Mother No problems noted. Maternal Grandmother Thyroid cancer Breast cancer Maternal Grandfather Essential hypertension Coronary artery arteriosclerosis Diabetes mellitus Brother Rheumatoid arthritis Social History Housing: Apartment Patient Tobacco Use Status: Never used Tobacco e-Cigarette/Vaping Use: Currently Using service: Yes Current occupational status: employed Cognitive needs: No Hearing needs: No Vision needs: Yes Questionnaire PHQ-9 Over the last 2 weeks, how often have you been bothered by any of the following problems? 1. Little interest or pleasure in doing things: several days 2. Feeling down, depressed, or hopeless: several days 3. Trouble falling or staying asleep, or sleeping too much: several days 4. Feeling tired or having little energy: several days 5. Poor appetite or overeating: several days 6. Feeling bad about yourself - or that you are a failure or have let yourself or your family down: not at all 7. Trouble concentrating on things, such as reading the newspaper or watching te levision: several days 8. Moving or speaking so slowly that other people could have noticed. Or the opposite - being so fidgety or restless that you have been moving around a lot more than usual: not at all 9. Thoughts that you would be better off or of hurting yourself in some way: not at all Total score: 6 Depression Screening Interpretation: Positive Depression Screening Follow-up: Existing condition, New Medication prescribed and Community Mental Health Worker F/U Depression Screening Done: Yes 56521 - PHQ-9 Billing: Yes Source: Developed by Drs. Jono Russo, Steph Alanis, Roberto Garcia and colleagues, with an educational lawson from [employer]. Thrive Questionnaire Date Thrive assessed: 06/09/23 MOIRA-7 AMB Questionnaire MOIRA-7 Date MOIRA - 7 assessed: 10/10/23 Feeling nervous, anxious, or on edge: 0 = Not at all Not being able to stop or control worryin = Not at all Worrying too much about different things: 1 = Several days Trouble relaxin = Several days Being so restless that it is hard to sit still: 0 = Not at all Becoming easily annoyed or irritable: 0 = Not at all Feeling afraid as if something awful might happen: 0 = Not at all Total MOIRA-7 score (0-4 normal; 5-9 mild; 10-14 moderate; 15-21 severe): 2 Source: Developed by Drs. Jono Russo, Steph Alanis, Roberto Garcia and colleagues, with an educational lawson from [employer]. MOIRA-7 Assessment Billing MOIRA-7 Assessment Tool: MOIRA-7 Assessment 05309 Review of Systems Const Reports no additional complaints ENT Reports no additional complaints Card Reports no additional complaints Resp Reports no additional complaints GI Reports no additional complaints Reports as per HPI Musc Reports no additional complaints Skin/Breast Reports as per HPI Neuro Reports no additional complaints Psych Reports as per HPI Physical exam (Primary Care) Tobacco/Smoking Status: Tobacco use Status Tobacco use date assessed 10/10/23 10/10/23 08:26 Patient Tobacco Use Status Never used Tobacco 10/10/23 08:26 e-Cigarette/Vaping Use Currently Using 10/10/23 08:26 Depression Screening Interpretation: Positive Depression Screening Follow-up: Existing condition, New Medication prescribed and Community Mental Health Worker F/U Thrive Assessment: Date of Thrive Assessment Date Thrive assessed 06/09/23 10/10/23 08:26 Telehealth Telehealth Telehealth Platform: [employer] Location of provider rendering services: practice address Location of patient: address on file Telehealth method: video Patient verbally consented to treatment: Yes Patient verbally consented to billing insurance company: Yes Patient informed of any privacy concerns related to visit: Yes Minutes spent on Phone/Video with Pt.: 15 Assessment and Plan Assessment & Plan (1) Persistent depressive disorder with anxious distress, currently moderate: Code(s): F34.1 - Dysthymic disorder (2) ADHD: Code(s): F90.9 - Attention-deficit hyperactivity disorder, unspecified type Qualifiers: Attention deficit-hyperactivity disorder type: unspecified Qualified Code(s): F90.9 - Attention-deficit hyperactivity disorder, unspecified type Plan Patient states that his seems to be helping a little bit but does not think that it has reached its full effect, has only been taking for the last 3 and half weeks. Will continue on current dose, 30 tablets prescribed with 1 refill sent to the [facility] in [place]. Will see her back for follow-up in 11/2023.. Will inform Anjana, our certified mental health worker, regarding this and see if she can set her up with somebody else. Coding Level of Care Code Tele Est Pt Level 3 (27527) Diagnoses Persistent depressive disorder with anxious distress, currently moderate F34.1 Attention deficit hyperactivity disorder (ADHD), unspecified ADHD type F90.9 Attention deficit-hyperactivity disorder type: unspecified Additional Codes MOIRA-7 Assessment Billing - MOIRA-7 Assessment Tool: MOIRA-7 Assessment 33344 ([id number])
== END 2023-10-10 11:20 | disposition home or self-care (01) ==
LOC: HO.HMGC 08:28
PROVIDERS: PCP Internal Medicine; Visit Provider Internal Medicine
DX: F34.1 Dysthymic disorder (principal); F90.9 Attention-deficit hyperactivity disorder, unspecified type
CPT/HCPCS: 99213

== ENCOUNTER 2023-10-20 08:48 | Outpatient (AMB) | payer OTHER, SELFPAY ==
[2023-10-20 09:49] VITALS: BP 108/66; PULSE 98; TEMP 36.9; O2SAT 99; BMI 24.1
--- NOTE | 2023-10-20 09:49 | AM.OFFWIN_ITS ---
Intake Vital Signs 10/20/23 09:49 Height 5 ft 2 in Weight 132 lb BMI 24.1 BP 108/66 Blood Pressure Location Rt brachial Position Sitting Pulse 98 Pulse Source Pulse Oximeter Temp 98.4 F Temp Source Oral Pulse Oximetry (%) 99 Oxygen Delivery Method Room Air Intake Visit Reasons: EP upper respiratory Intake Note: Pt c/o Productive cough, congestion, headache. Started Friday Patient Tobacco Use Status: Never used Tobacco Allergies No Known Allergies Allergy (Verified 10/20/23 09:49) Do you need a note to return to daycare/school/sports/work: No HPI HPI Comments History of Present Illness Details Patient is a 23 old female complaining of 2 days of cough, congestion in her chest, headache. She denies any fevers, sinus pain, ear pain or shortness of breath. She has denies any sick contacts. She has not tried anything to make it better. She did test for COVID 2 days ago and it was negative but she is not sure if she did the test properly. [facility] Medical History ADHD Persistent depressive disorder with anxious distress, currently moderate Acne vulgaris History of hemorrhoids Family history of thyroid cancer Family History Mother Acquired hypothyroidism Mental health disorder Mother No problems noted. Maternal Grandmother Thyroid cancer Breast cancer Maternal Grandfather Essential hypertension Coronary artery arteriosclerosis Diabetes mellitus Brother Rheumatoid arthritis Social History Housing: Apartment Patient Tobacco Use Status: Never used Tobacco e-Cigarette/Vaping Use: Currently Using service: Yes Current occupational status: employed Cognitive needs: No Hearing needs: No Vision needs: Yes Review of Systems Const All systems reviewed & are unremarkable except as noted in HPI and below Physical Exam Vital Signs: Last Vital Signs Temp 98.4 F 10/20/23 09:49 Pulse 98 10/20/23 09:49 BP 108/66 10/20/23 09:49 Pulse Ox 99 10/20/23 09:49 Oxygen Delivery Method Room Air 10/20/23 09:49 BMI result Body Mass Index 24.1 Const General: cooperative, healthy appearing, comfortable and no acute distress Orientation/consciousness: patient oriented x3 Limitations: no limitations HEENT Head: Yes normal to inspection Ears: hearing grossly normal bilaterally, external ears normal and TM's normal bilaterally General nose exam: Normal external nose present, Normal nares present and No nasal discharge present Face and sinus: Yes normal facial exam and Yes sinuses nontender Mouth: Normal oral and palatal mucosa present and moist mucous membranes Throat: Yes tonsils normal, Yes uvula midline and Yes posterior oropharynx abnormal (Erythema) Eyes General: appearance normal, both eyes and all related structures Neck Neck: Yes normal visual inspection Resp Effort & Inspection: normal respiratory effort, able to speak in complete sentences, Actively coughing, no respiratory distress, not tachypneic, no tripod positioning and no use of accessory muscles Auscultation: clear to auscultation bilaterally Cardio Rate: regular rate Rhythm: regular rhythm Heart sounds: normal S1 and S2 Skin General skin exam: no rashes or lesions noted Neuro General: patient oriented x3 Extrem General: Yes normal to inspection and Yes no clubbing, cyanosis or edema Assessment & Plan Assessment & Plan (1) URI (upper respiratory infection): Code(s): J06.9 - Acute upper respiratory infection, unspecified Qualifiers: URI type: unspecified URI Qualified Code(s): J06.9 - Acute upper respiratory infection, unspecified Plan: Vital signs stable, physical exam unremarkable except for erythematous throat. Sent flu COVID RSV test, if these are negative, I will send a Z-Zheng to treat for atypical pneumonia. Recommended patient treat herself with [id number] medications and if symptoms worsen, to follow up with PCP or go to the emergency department. Plan See above Orders: Orders SARS-CoV2/FLU/RSV Today J06.9 - Acute upper respiratory infection, unspecified Coding Level of Care Code Est Pt Level 3 (76167) Diagnoses Upper respiratory tract infection, unspecified type J06.9 URI type: unspecified URI
== END 2023-10-20 10:50 | disposition home or self-care (01) ==
PROVIDERS: PCP Internal Medicine; Visit Provider Physician Assistant
DX: J06.9 Acute upper respiratory infection, unspecified (principal)
CPT/HCPCS: 99213

== ENCOUNTER 2023-10-20 10:35 | Outpatient (REF) | payer OTHER, SELFPAY ==
[2023-10-20 14:04] LABS: Influenza A PCR NEGATIVE (Negative); Influenza B PCR NEGATIVE (Negative); Resp Syncy Virus RNA Qual PCR NEGATIVE (Negative); SARS COV2 PCR INHOUSE NEGATIVE (Negative)
== END 2023-10-20 10:36 | disposition home or self-care (01) ==
LOC: HO.LAB 10:35
PROVIDERS: Visit Provider Physician Assistant
DX: J06.9 Acute upper respiratory infection, unspecified (principal)
CPT/HCPCS: 0241U

== ENCOUNTER 2023-12-12 08:29 | Outpatient (AMB) | payer OTHER, SELFPAY ==
--- NOTE | 2023-12-12 08:29 | A.OFFPC_ITS ---
Intake Visit Reasons: follow up anxiety Intake Note: Pt is having a telehealth visit to f/u anxiety Allergies No Known Allergies Allergy (Verified 12/12/23 08:34) Medication List - Last Reconciled 12/12/23 by Yarelis Crane MD adapalene 0.1% (Differin) 1 appl topical BEDTIME bupropion HCl XL (Wellbutrin XL) 150 mg PO QAM drospirenone-ethinyl estradiol 3-0.02 mg (Roma (28)) 1 tab PO DAILY Tobacco use date assessed: 12/12/23 Dental Screening Dental Screen Date: 12/12/23 Did you have a dental visit in the last 12 months?: Yes Did you have a dental problem in the last 6 months where you did not have access to dental care?: Yes Was dental information given to patient?: Patient has dentist HPI follow up anxiety HPI Details 23-year-old lady with depression and anx iety, here today for follow-up. She has been started on bupropion XL 150 mg taken once a day in the morning which she states has really been helping control her anxiety and mood swings. Like to continue on medication, denies any adverse effects from the medication. She also has been noticing hair thinning. Recent labs showed normal CBC, thyroid stimulating hormone, electrolytes, glucose levels. Patient would like to see if she can try [id number] minoxidil marketed as HERS tablets. [facility] Medical History (Updated 12/12/23 @ 08:47 by Yarelis Crane MD) Hair thinning Anxiety with depression ADHD Persistent depressive disorder with anxious distress, currently moderate Acne vulgaris History of hemorrhoids Family history of thyroid cancer Family History Mother Acquired hypothyroidism Mental health disorder Mother No problems noted. Maternal Grandmother Thyroid cancer Breast cancer Maternal Grandfather Essential hypertension Coronary artery arteriosclerosis Diabetes mellitus Brother Rheumatoid arthritis Social History Housing: Apartment Patient Tobacco Use Status: Never used Tobacco e-Cigarette/Vaping Use: Currently Using service: Yes Current occupational status: employed Cognitive needs: No Hearing needs: No Vision needs: Yes Questionnaire PHQ-9 Over the last 2 weeks, how often have you been bothered by any of the following problems? 1. Little interest or pleasure in doing things: not at all 2. Feeling down, depressed, or hopeless: not at all 3. Trouble falling or staying asleep, or sleeping too much: not at all 4. Feeling tired or having little energy: not at all 5. Poor appetite or overeating: not at all 6. Feeling bad about yourself - or that you are a failure or have let yourself or your family down: not at all 7. Trouble concentrating on things, such as reading the newspaper or watching television: not at all 8. Moving or speaking so slowly that other people could have noticed. Or the opposite - being so fidgety or restless that you have been moving around a lot more than usual: not at all 9. Thoughts that you would be better off or of hurting yourself in some way: not at all Total score: 0 Depression Screening Interpretation: Negative (Feeling better since starting bupropion XL 150 mg taken once a day in a.m.) Depression Screening Done: Yes 47319 - PHQ-9 Billing: Yes Source: Developed by Drs. Jono Russo, Steph Alanis, Roberto Garcia and colleagues, with an educational lawson from [employer]. Thrive Questionnaire Date Thrive assessed: 06/09/23 AUDIT C Alcohol Use Questionnaire (AUDIT-C) 2. How many drinks containing alcohol do you have on a typical day when you are drinking?: 1 or 2 3. How often do you have six or more drinks on one occasion?: Never Total Score: 0 MOIRA-7 AMB Questionnaire MOIRA-7 Date MOIRA - 7 assessed: 12/12/23 Feeling nervous, anxious, or on edge: 0 = Not at all Not being able to stop or control worryin = Not at all Worrying too much about different things: 1 = Several days Trouble relaxin = Several days Being so restless that it is hard to sit still: 0 = Not at all Becoming easily annoyed or irritable: 0 = Not at all Feeling afraid as if something awful might happen: 0 = Not at all Total MOIRA-7 score (0-4 normal; 5-9 mild; 10-14 moderate; 15-21 severe): 2 Source: Developed by Drs. Jono Russo, Steph Alanis, Roberto Garcia and colleagues, with an educational lawson from [employer]. MOIRA-7 Assessment Billing MOIRA-7 Assessment Tool: MOIRA-7 Assessment 12723 Review of Systems Const Denies anorexia, Denies body aches, Denies difficulty sleeping and Denies fatigue ENT Reports no additional complaints Card Reports no additional complaints Resp Reports no additional complaints GI Reports no additional complaints Reports as per HPI Musc Reports no additional complaints Skin/Breast Reports as per HPI Neuro Reports no additional complaints Psych Reports as per HPI Endo Denies fatigue Physical exam (Primary Care) Tobacco/Smoking Status: Tobacco use Status Tobacco use date assessed 12/12/23 12/12/23 08:31 Patient Tobacco Use Status Never used Tobacco 12/12/23 08:31 e-Cigarette/Vaping Use Currently Using 12/12/23 08:31 Depression Screening Interpretation: Negative (Feeling better since starting bupropion XL 150 mg taken once a day in a.m.) Thrive Assessment: Date of Thrive Assessment Date Thrive assessed 06/09/23 12/12/23 08:31 Telehealth Telehealth Telehealth Platform: [employer] Location of provider rendering services: practice address Location of patient: address on file Patient Identification confirmed using: Name, : Yes Telehealth method: video Patient verbally consented to treatment: Yes Patient verbally consented to billing insurance company: Yes Patient informed of any privacy concerns related to visit: Yes Minutes spent on Phone/Video with Pt.: 15 Assessment and Plan Assessment & Plan (1) Anxiety with depression: Code(s): F41.8 - Other specified anxiety disorders Plan: Doing better on bupropion XL 150 mg taken once daily in a.m., will continue on present medication. Will see her for follow-up in six-month , scheduled for physical exam 05/2024. (2) Hair thinning: Code(s): L65.9 - Nonscarring hair loss, unspecified Plan: Patient wants to try taking generic minoxidil marked as HERS tablet. Reviewed recent labs which showed normal CBC, electrolytes, thyroid stimulating hormone, glucose levels Coding Level of Care Code Tele Est Pt Level 3 (85143) Diagnoses Anxiety with depression F41.8 Hair thinning L65.9 Additional Codes MOIRA-7 Assessment Billing - MOIRA-7 Assessment Tool: MOIRA-7 Assessment 38386 ([id number])
== END 2023-12-12 09:20 | disposition home or self-care (01) ==
PROVIDERS: PCP Internal Medicine; Visit Provider Internal Medicine
DX: F41.8 Other specified anxiety disorders (principal); L65.9 Nonscarring hair loss, unspecified
CPT/HCPCS: 99213

== ENCOUNTER 2023-12-16 11:43 | Outpatient (AMB) | payer OTHER, SELFPAY ==
[2023-12-16 11:58] VITALS: BP 108/70; PULSE 95; TEMP 37; O2SAT 98; BMI 25.1
--- NOTE | 2023-12-16 11:58 | AM.OFFWIN_ITS ---
Intake Vital Signs 12/16/23 11:58 Height 5 ft 2 in Weight 137 lb BMI 25.1 BP 108/70 Blood Pressure Location Rt brachial Position Sitting Pulse 95 Pulse Source Pulse Oximeter Temp 98.6 F Temp Source Oral Pulse Oximetry (%) 98 Oxygen Delivery Method Room Air Intake Visit Reasons: EP Stomach pain Intake Note: pt c/o bilateral abdominal pain 9/10. Started 1 1/2 hour ago. Patient Tobacco Use Status: Never used Tobacco Allergies No Known Allergies Allergy (Verified 12/16/23 11:58) Do you need a note to return to daycare/school/sports/work: No HPI HPI Comments History of Present Illness Details This is a 23-year-old female with past medical history of depression presenting for evaluation of abdominal pain that started approximately 90 minutes ago. Patient states that the pain started in her lower abdomen after eating a ?fruit cup?. Patient states she has felt nauseous with ?dry heaves? 2 times before coming to the urgent care. Patient states her last menstrual period started yesterday. She reports mild dysuria yesterday without vaginal discharge and denies any fevers or chills. Patient has not taken any medication for treatment of her discomfort. [facility] Medical History Hair thinning Anxiety with depression ADHD Persistent depressive disorder with anxious distress, currently moderate Acne vulgaris History of hemorrhoids Family history of thyroid cancer Family History Mother Acquired hypothyroidism Mental health disorder Mother No problems noted. Maternal Grandmother Thyroid cancer Breast cancer Maternal Grandfather Essential hypertension Coronary artery arteriosclerosis Diabetes mellitus Brother Rheumatoid arthritis Social History Housing: Apartment Patient Tobacco Use Status: Never used Tobacco e-Cigarette/Vaping Use: Currently Using service: Yes Current occupational status: employed Cognitive needs: No Hearing needs: No Vision needs: Yes Review of Systems Const All systems reviewed & are unremarkable except as noted in HPI and below Denies chills, Denies fatigue and Denies fever(s) Card Reports no additional complaints Resp Reports no additional complaints GI Reports abdominal pain, Denies belching, Denies bloating, Denies change in bowel habits, Denies constipation, Reports nausea and Denies vomiting Denies difficulty voiding, Reports dysuria (yesterday; no dysuria today), Denies urinary incontinence and Denies vaginal discharge Musc Reports no additional complaints Skin/Breast Reports system reviewed and no additional complaints, except as documented Neuro Reports no additional complaints Psych Reports no additional complaints Endo Denies fatigue Physical Exam Vital Signs: Last Vital Signs Temp 98.6 F 12/16/23 11:58 Pulse 95 12/16/23 11:58 BP 108/70 12/16/23 11:58 Pulse Ox 98 12/16/23 11:58 Oxygen Delivery Method Room Air 12/16/23 11:58 BMI result Body Mass Index 25.1 Const General: cooperative, healthy appearing, comfortable, no acute distress, well developed, alert, awake and Physically active; No acute distress Nutritional Appearance: average body habitus Orientation/consciousness: patient oriented x3 Limitations: no limitations Cardio Rate: regular rate Rhythm: regular rhythm Bruits: no abdominal aortic bruits GI Inspection: Yes normal to inspection Palpation (GI): No Abdominal aortic bruit present, Soft to palpation and Tenderness to palpation present (GI) in the RLQ and at McBurney's point; not in the LLQ, not in the RUQ, not suprapubicly and with no rebound tenderness Auscultation: normal bowel sounds Skin General skin exam: no rashes or lesions noted Neuro General: patient oriented x3 Psych Appearance: grossly normal Mental Status: mental status grossly normal Insight: Good insight present (Psych) Judgement: Good judgement present (Psych) Assessment & Plan Assessment & Plan (1) Right lower quadrant abdominal pain: Comment: Given the acute onset of this patient's right lower quadrant abdominal pain she will be referred to the emergency department for further evaluation and care. Code(s): R10.31 - Right lower quadrant pain Plan: Patient will go directly to [facility]; Yolanda at the [facility] is notified of this patients arrival. Coding Level of Care Code Est Pt Level 3 (72864) Diagnoses Right lower quadrant abdominal pain R10.31 Time Spent (min) 20
== END 2023-12-16 13:02 | disposition home or self-care (01) ==
PROVIDERS: PCP Internal Medicine; Visit Provider Physician Assistant
DX: R10.31 Right lower quadrant pain (principal)

== ENCOUNTER → 2023-12-16 11:43 | Outpatient (BNVA) | payer OTHER, SELFPAY | PROVIDERS: PCP Internal Medicine ==

== ENCOUNTER 2023-12-16 12:51 | Emergency (ER) | payer OTHER, SELFPAY ==
--- NOTE | ~2023-12-16 | CT_ITS ---
EXAMINATION: CT ABDOMEN AND PELVIS WITH CONTRAST CLINICAL INFORMATION: Right lower quadrant pain, elevated lactic acid COMPARISON: None available. TECHNIQUE: Multidetector volumetric images were obtained from the superior aspect of the liver through the pubic symphysis following administration 85 mL of Omnipaque 350 intravenous contrast. Sagittal and coronal reformatted images were obtained on the technologist's workstation. Oral contrast: No This CT examination was performed using dose optimization techniques as appropriate, variously including the following: *Automated exposure control *Adjustment of mA and/or kV according to patient size (this includes techniques or standardized protocols for targeted exams where dose is matched to indication/reason for exam; i.e. extremities or head) *Use of iterative reconstruction technique DLP: 418 mGy-cm FINDINGS: CUT FILER: Nonobstructive bowel pattern. LUNG BASES: The visualized lung bases are unremarkable. LIVER, GALLBLADDER, AND BILIARY TREE: The liver is normal in size, shape, and attenuation. No focal hepatic lesion or biliary ductal dilatation is present. The gallbladder is unremarkable with no evidence of radiopaque gallstones, gallbladder wall thickening, or obvious pericholecystic inflammatory changes. PANCREAS: Unremarkable. SPLEEN: Unremarkable. ADRENAL GLANDS: Unremarkable. KIDNEYS AND URETERS: The kidneys are normal in size, shape, and attenuation. No hydronephrosis, hydroureter, or calculi seen. No perinephric stranding. BLADDER: Unremarkable. GASTROINTESTINAL TRACT: Small hiatal hernia. Moderately distended and scanner. Nonobstructive bowel pattern. Unremarkable terminal ileum and appendix. Moderate fecal retention. ABDOMINAL WALL: No significant hernia is appreciated. LYMPH NODES: No pathologic lymphadenopathy. VASCULAR: Nonaneurysmal aorta with patency of mesenteric vessels. Normal caliber inferior vena cava and unremarkable iliac veins. Patent portal system. PELVIC VISCERA: Possible fibroid uterus and bilateral ovarian follicles/cysts. No free pelvic fluid. OSSEOUS STRUCTURES: L4-[address]/CT abdomen pelvis w IV con IMPRESSION: 1. No acute intra-abdominal or pelvic pathology. 2. Possible fibroid uterus and bilateral ovarian follicles/cysts. Consider pelvic ultrasound. Fleischner guidelines were followed. Electronically signed by: Lizbet Baltazar MD 12/16/2023 04:55 PM EDT
--- NOTE | ~2023-12-16 | US_ITS ---
EXAMINATION: US ABDOMEN LIMITED CLINICAL INFORMATION: Right upper quadrant pain.. COMPARISON: None available. TECHNIQUE: Real-time imaging of the right upper quadrant abdominal viscera. FINDINGS: PANCREAS: Head and body appear unremarkable. Tail not visualized. LIVER: The liver appears unremarkable in size, contour, and echogenicity. No focal hepatic lesion identified. No intrahepatic biliary duct dilatation is seen. GALLBLADDER: The gallbladder is physiologically distended without evidence of stones, sludge, polyps, wall thickening or pericholecystic fluid. Technologist reports positive sonographic Gardner sign. COMMON BILE DUCT: Normal in caliber measuring 0.3 cm in diameter. Technologist reports ?debris seen in CB not clearly demonstrated on the images submitted. RIGHT KIDNEY: Not evaluated. FREE FLUID: None. US/US abdomen limited IMPRESSION: Technologist reports positive sonographic Gardner sign. Otherwise essentially unremarkable study. Electronically signed by: Mj Choudhury MD 12/16/2023 06:27 PM EDT
[2023-12-16 13:20] VITALS: BP 118/79; PULSE 86; RESP 18; TEMP 36.5; O2SAT 100; BMI 24.3
--- NOTE | 2023-12-16 13:20 | ED_ITS ---
HPI - Abdominal Pain General Chief Complaint: Abdominal Pain Stated Complaint: Appendicitis sent by UC Time Seen by Provider: 12/16/23 14:47 Source: patient Mode of arrival: ambulatory Limitations: no limitations History of Present Illness ED Provider: TIM FLORES PA-C HPI narrative: 23-year-old female with past medical history significant for ADHD, anxiety, depression, and PCOS presents to the ED today for evaluation of upper abdominal pain and dry heaving which began around 915 this morning after eating a fruit cup. She was evaluated at urgent care this morning and sent to the ED for evaluation of possible appendicitis. She reports pain has been slowly improving since she was seen at urgent care. She currently reports 4/10 burning abdominal pain to her upper abdomen. No history of abdominal surgeries. She is currently on her menstrual cycle. She also endorses 2 days of dysuria. Denies increased urinary frequency or urgency, hematuria, flank pain Denies fever, chills, nausea or vomiting, diarrhea or constipation, hematemesis, melena, hematochezia. Reports normal bowel movements, last BM this morning. Related Data Home Medications ?Medication ?Instructions ?Recorded ?Confirmed drospirenone 3 mg-ethinyl 1 tab PO DAILY 08/12/23 estradiol 0.02 mg tablet (Roma (28)) Previous Rx's ?Medication ?Instructions ?Recorded adapalene 0.1 % topical gel 1 appl topical BEDTIME #15 grams 10/14/23 (Differin) bupropion HCl 150 mg 24 hr tablet, 150 mg PO QAM #30 tabs 11/12/23 extended release (Wellbutrin XL) cefuroxime axetil 250 mg tablet 250 mg PO BID 7 days #14 tabs 12/16/23 Allergies Allergy/AdvReac Type Severity Reaction Status Date / Time No Known Allergies Allergy Verified 12/16/23 13:22 Review of Systems Review of Systems Constitutional: No fever, chills, fatigue, night sweats, weight changes ENT/Mouth: No ear pain, hearing loss, nasal congestion, sinus pain, rhinorrhea, sore throat Eyes: No eye pain, swelling, redness, vision changes, discharge Cardio: No chest pain, palpitations, FLYNN, orthopnea, peripheral edema Pulm: No SOB, cough, sputum, wheezing, dyspnea, hemoptysis GI: No nausea, vomiting, hematemesis, diarrhea, constipation, hematochezia, melena, +abdominal pain : No irregular bleeding, dysuria, frequency, urgency, hesitancy, hematuria, flank pain, urinary flow changes, urinary incontinence or retention MSK: No back pain, neck pain, joint pain, myalgias Skin: No lesions, rashes Neuro: No weakness, numbness, paresthesias, LOC, dizziness, headache Psych: No anxiety/panic, depression, SI/HI, AH/VH All other systems reviewed and are negative. [facility] Past Medical History Attestation statement: The following information was validated with the patient. Source: old records reviewed Medical History Hair thinning Anxiety with depression ADHD Persistent depressive disorder with anxious distress, currently moderate Acne vulgaris History of hemorrhoids Family history of thyroid cancer Family History Family History Mother Acquired hypothyroidism Mental health disorder Mother No problems noted. Maternal Grandmother Thyroid cancer Breast cancer Maternal Grandfather Essential hypertension Coronary artery arteriosclerosis Diabetes mellitus Brother Rheumatoid arthritis Social History Social History Housing: Apartment Patient Tobacco Use Status: Never used Tobacco Smoked in Last 30 Days: No e-Cigarette/Vaping Use: Currently Using Use of substances other than those prescribed or required for medical reasons: No Advance Directives: No Advance Directives Information Provided: No Do you have a plan to hurt others: No Plan Patient : No service: Yes Current occupational status: employed Cognitive needs: No Hearing needs: No Vision needs: Yes Physical Exam ED Vital Signs: Vital Signs - 24 hr 12/16/23 13:20 12/16/23 17:51 Temperature 97.7 F 98 F Pulse Rate 86 72 Respiratory Rate 18 16 Blood Pressure 118/79 134/84 Pulse Oximetry 100 100 Oxygen Delivery Method Room Air Room Air BMI result Body Mass Index 24.3 Vital signs stable, afebrile General: Well appearing, in no acute distress. Skin: Warm, dry, intact. No rashes or lesions. Head: Normocephalic, atraumatic. EENT: Hearing is intact b/l. Conjunctiva clear. Sclera is anicteric. PERRLA. EOM intact. Moist mucous membranes.? Neck: Supple without LAD. FROM. Trachea midline.? Cardiac: Chest wall symmetric. RRR. No MRG. No JVD. Lungs: Normal respiratory effort without accessory muscle use. CTA bilaterally. No rales, rhonchi, or wheezes.? Abdomen: Abdomen soft, nondistended, minimally tender to palpation of the right upper quadrant without rebound or guarding. Positive Gardner's sign. No McBurney point tenderness. No Rovsing sign. Normoactive bowel sounds x4. No CVAT bilaterally. Back: No midline spinous or paraspinal tenderness. No step off deformity. Ext: Upper and lower extremities atraumatic, without tenderness, deformity, swelling or erythema. Full ROM throughout. Neuro: AOx3. Normal speech. Ambulating with steady gait. Psych: Appropriate mood and affect. Responds appropriately to questions. Course Course Course Narrative: This is a Rapid Medical Examination (RME) performed by Marques Sims PA-C in triage. Full HPI, ROS, assessment and treatment plan per primary provider in the Main ED. 23 yo female with history of ADHD, anxiety/depression who presents to the ER for evaluation diffuse abdominal pain, dry heaving that started 915 this morning after eating a fruit cup. Seen at the urgent care clinic [facility] and sent to the ER for evaluation of possible appendicitis, she had right lower quadrant tenderness on examination there. Pain is waxing and waning, currently a 4-5/10. shes on her menstrual cycle now. In triage patient appears well, alert and oriented, nontoxic. Her abdomen is soft with no significant tenderness on palpation. Plan: Lab workup, UA, imaging per primary provider Reevaluation(s) Reevaluation #1: 1438 -- cbc without leukocytosis or left shift. no anemia. h&h stable. chemistry wihthout acute electrolyte abnormality requiring intervention. no CONNIE. normal liver function. lipase wnl > unlikely pancreatitis. beta hcg quant undetectable. urine w/ small leukocytes, 6-10 WBCs, trace urine bacteria, over 20 urine RBCs likely secondary to current menstrual cycle. > her lactic is 4.3. given stable vitals and unremarkable labs, there is no concern for sepsis at this time. > will obtain blood cultures and treat empirically for suspected appendicitis at this time with zosyn/ metro. 1L IVF given. CT a/p pending. 1643 -- repeat lactic 3. 2 L of IV fluids ordered. ct still pending. 170 -- on CT abdomen/pelvis, liver is normal in size. Gallbladder unremarkable without stones or gallbladder wall thickening. Unremarkable appendix. There is moderate fecal retention with nonobstructive bowel pattern. Possible fibroid uterus with bilateral ovarian follicle/cyst, consistent with patient's history of PCOS. > given positive Gardner's sign on examination, will add on right upper quadrant abdominal ultrasound to rule out biliary pathology. Will re-evaluate. 184 -- on re-evaluation, patient tells me she is feeling much better. pain 1/10 at present. abdominal ultrasound shows gallbladder physiologically distended without evidence of stones, sludge, polyps, wall thickening or pericholecystic fluid. Technologist did report positive sonographic Gardner's sign. Common bile duct is normal in caliber measuring 0.3 cm without noted debris. Pancreas and liver unremarkable. No obvious etiology to patient's right upper quadrant tenderness. > I did discuss these workup results with patient. Her lactic is down trending. Her labs are otherwise unremarkable. I do not have concern for acute infection or sepsis. At this time, will treat patient for simple urinary tract infection. No concern for pyelonephritis. Ceftin sent to pharmacy for treatment. Given patient's moderate stool burden, advised to take MiraLax at home to help pass her bowels. Patient has remained stable throughout ED visit today. Discussed worrisome signs and symptoms and when to return to the ED. All questions answered at this time. Patient is agreeable with disposition and stable for discharge. Medical Decision Making Medical Decision Making MDM Narrative: This is a 23 yo female with RUQ abdominal pain. Vitals are stable. She is afebrile. Not tachycardic. Not hypoxic. Normotensive. Her abdomen is soft, nondistended, minimally tender to palpation of the right upper quadrant without rebound or guarding. Positive Gardner's sign. No McBurney point tenderness. No Rovsing sign. Normoactive bowel sounds x4. No CVAT bilaterally. Differential diagnosis includes biliary colic, renal colic, nephrolithiasis, gastroenteritis. Well appearing. Moderate suspicion for acute hepatobiliary disease (including acute cholecystitis). Abdominal exam without peritoneal signs. No evidence of acute abdomen at this time. Less likely to represent acute pancreatitis, PUD (including perforation), acute infectious processes (pneumonia, hepatitis, pyelonephritis), atypical appendicitis, vascular catastrophe, bowel obstruction or viscus perforation. Presentation not consistent with other acute, emergent causes of abdominal pain at this time. Plan: Labs, UA, urine , lactic acid, CT abdomen/pelvis with contrast ordered from triage. IV fluids and antibiotics added on. Differential Diagnosis Differential Diagnoses: The differential diagnosis associated with the presentation includes As above Admission/Observation Consideration of admission/observation: Escalation of care including admission/observation considered Lab Data MDM Lab Attestation statement: I reviewed the patient's lab results. As above 12/16/23 13:55 12/16/23 13:55 Labs: Lab Results 12/16/23 12/16/23 12/16/23 Range/Units 13:55 13:59 16:25 WBC 8.1 (4.8-10.8) X10*3/uL RBC 4.45 (4.20-5.50) X10*6/uL Hgb 14.3 (12.0-16.0) g/dl Hct 40.7 (37.0-47.0) % MCV 91.5 (80.0-98.0) fL MCH 32.1 (27.0-33.0) pg MCHC 35.1 H (31.0-35.0) g/dl RDW 11.5 (11.0-16.0) % Plt Count 265 (160-400) X10*3/uL MPV 9.3 L (9.4-12.3) fL Immature Gran % (Auto) 0.4 (0.0-0.4) % Neut % (Auto) 62.6 (45-73) % Lymph % (Auto) 30.7 (20-40) % [place] % (Auto) 5.1 (2-11) % Eos % (Auto) 0.7 (0-4) % Baso % (Auto) 0.5 (0-2) % Lymph # (Auto) 2.5 (1.2-4.9) X10*3/uL [place] # (Auto) 0.4 (0.1-1.2) X10*3/uL Eos # (Auto) 0.1 (0.0-0.4) X10*3/uL Baso # (Auto) 0.0 (0.0-0.2) X10*3/uL Abs Immat Gran (auto) 0.03 (0.00-0.03) X10*3/uL Absolute Neuts (auto) 5.1 (2.0-8.3) x10*3/uL Absolute Nucleated RBC 0.000 (0.0-0.012) X10*3/uL Nucleated RBC % (auto) 0.0 (0.0-0.2) /100WBC Sodium 142 (135-145) mmol/L Potassium 4.5 (3.3-5.1) mmol/L Chloride 108 (96-108) mmol/L Carbon Dioxide 24 (22-29) mmol/L Anion Gap 15 (12-20) BUN 9 (9-16) mg/dL Creatinine 0.78 (0.5-1.4) mg/dL Estim Creat Clear Calc 95.1 Estimated GFR > 60 Random Glucose 91 (60-115) mg/dL Lactic Acid 4.3 H* (0.5-2.0) mmol/L Lactic Acid F/U @ 2Hr 3.0 H* (0.5-2.0) mmol/L Calcium 9.6 (8.4-10.2) mg/dL Magnesium 2.0 (1.6-2.6) mg/dL Total Bilirubin 0.2 (0.0-1.0) mg/dL Direct Bilirubin < 0.2 (0.0-0.5) mg/dL AST 21 (5-31) U/L ALT 13 (0-31) U/L Alkaline Phosphatase 39 (39-117) U/L Total Protein 7.5 (6.5-8.0) g/dL Albumin 4.4 (3.5-5.0) g/dL Lipase 47 (8-78) U/L Beta HCG, Quant < 2 mIU/mL Urine Color PINK Urine Appearance Cloudy Urine pH 5.5 (5.0-9.0) Ur Specific [place] 1.015 (1.005-1.025) Urine Protein 30 (1+) H (Neg-Trace) mg/dL Urine Glucose (UA) Negative (Negative) mg/dL Urine Ketones Negative (Negative) mg/dL Urine Blood Large (3+) H (Negative) Urine Nitrite Negative (Negative) Ur Leukocyte Esterase Small (1+) H (Negative) Urine RBC >20 H (0-2) /HPF Urine WBC 6-10 H (0-5) /HPF Ur Squamous Epith Cells 3-5 (0-2) /HPF Urine Bacteria Trace (None Seen) Hyaline Casts 0-2 (0-2) /LPF Independent Interpretation I performed an independent interpretation of an: Ultrasound and CT Scan Interpretation: CT abdomen/pelvis without evidence of ureteral calculi, agree with radiologist's interpretation. RUQ US without GB wall thickening or evidence of stones, agree with radiologist's interpretation. Radiology Impression Discussion of test interpretation with radiology: I have reviewed the radiologist's reading. Radiologist Impression: EXAMINATION: CT ABDOMEN AND PELVIS WITH CONTRAST CLINICAL INFORMATION: Right lower quadrant pain, elevated lactic acid COMPARISON: None available. TECHNIQUE: Multidetector volumetric images were obtained from the superior aspect of the liver through the pubic symphysis following administration 85 mL of Omnipaque 350 intravenous contrast. Sagittal and coronal reformatted images were obtained on the technologist's workstation. Oral contrast: No This CT examination was performed using dose optimization techniques as appropriate, variously including the following: *Automated exposure control *Adjustment of mA and/or kV according to patient size (this includes techniques or standardized protocols for targeted exams where dose is matched to indication/reason for exam; i.e. extremities or head) *Use of iterative reconstruction technique DLP: 418 mGy-cm FINDINGS: ADULT EDUCATOR: Nonobstructive bowel pattern. LUNG BASES: The visualized lung bases are unremarkable. LIVER, GALLBLADDER, AND BILIARY TREE: The liver is normal in size, shape, and attenuation. No focal hepatic lesion or biliary ductal dilatation is present. The gallbladder is unremarkable with no evidence of radiopaque gallstones, gallbladder wall thickening, or obvious pericholecystic inflammatory changes. PANCREAS: Unremarkable. SPLEEN: Unremarkable. ADRENAL GLANDS: Unremarkable. KIDNEYS AND URETERS: The kidneys are normal in size, shape, and attenuation. No hydronephrosis, hydroureter, or calculi seen. No perinephric stranding. BLADDER: Unremarkable. GASTROINTESTINAL TRACT: Small hiatal hernia. Moderately distended and scanner. Nonobstructive bowel pattern. Unremarkable terminal ileum and appendix. Moderate fecal retention. ABDOMINAL WALL: No significant hernia is appreciated. LYMPH NODES: No pathologic lymphadenopathy. VASCULAR: Nonaneurysmal aorta with patency of mesenteric vessels. Normal caliber inferior vena cava and unremarkable iliac veins. Patent portal system. PELVIC VISCERA: Possible fibroid uterus and bilateral ovarian follicles/cysts. No free pelvic fluid. OSSEOUS STRUCTURES: L4-[address]/CT abdomen pelvis w IV con IMPRESSION: 1. No acute intra-abdominal or pelvic pathology. 2. Possible fibroid uterus and bilateral ovarian follicles/cysts. Consider pelvic ultrasound. Fleischner guidelines were followed. Electronically signed by: Lizbet Baltazar MD 12/16/2023 04:55 PM EDT EXAMINATION: US ABDOMEN LIMITED CLINICAL INFORMATION: Right upper quadrant pain.. COMPARISON: None available. TECHNIQUE: Real-time imaging of the right upper quadrant abdominal viscera. FINDINGS: PANCREAS: Head and body appear unremarkable. Tail not visualized. LIVER: The liver appears unremarkable in size, contour, and echogenicity. No focal hepatic lesion identified. No intrahepatic biliary duct dilatation is seen. GALLBLADDER: The gallbladder is physiologically distended without evidence of stones, sludge, polyps, wall thickening or pericholecystic fluid. Technologist reports positive sonographic Gardner sign. COMMON BILE DUCT: Normal in caliber measuring 0.3 cm in diameter. Technologist reports ?debris seen in CB not clearly demonstrated on the images submitted. RIGHT KIDNEY: Not evaluated. FREE FLUID: None. US/US abdomen limited IMPRESSION: Technologist reports positive sonographic Gardner sign. Otherwise essentially unremarkable study. Electronically signed by: Mj Choudhury MD 12/16/2023 06:27 PM EDT External Record Review External record reviewed: Inpatient record Prescription Management I considered prescription management with: Antibiotic (Ceftin) and Other (MiraLax) Chronic Conditions Patient?s care impacted by: Other (PCOS) Social Determinants Patient?s care significantly limited by Social Determinants of Health including: Other Social Determinant of Health Medications Administered Discontinued Medications Generic Name Dose Route Start Last Admin Trade Name Freq PRN Reason Stop Dose Admin Piperacillin Sod/Tazobactam 50 mls @ 100 mls/hr 12/16/23 14:34 12/16/23 16:10 Sod 3.375 gm/ Sodium Chloride IV 12/16/23 15:03 Infused ONCE ONE Infusion Metronidazole 500 mg in 100 mls @ 100 mls/hr 12/16/23 14:34 12/16/23 17:13 Flagyl IV 12/16/23 15:33 Infused ONCE ONE Infusion Sodium Chloride 1,000 mls @ 999 mls/hr 12/16/23 15:00 12/16/23 16:27 Ns IV 12/16/23 16:00 Infused .Q1H1M SHAI Infusion Sodium Chloride 1,000 mls @ 999 mls/hr 12/16/23 16:45 12/16/23 18:09 Ns IV 12/16/23 17:45 Infused .Q1H1M SHAI Infusion Iohexol 85 ml 12/16/23 15:05 12/16/23 15:05 Iohexol 350 Mg/Ml 100 Ml Infus..Btl IV 12/16/23 15:06 85 ml ONCE ONE Administration Critical Care Time Critical Care Time Critical Care Time: Yes Total Critical Care Time: 37 Attestation: Critical care time in the amount of 37 minutes has been provided to the patient in terms of direct patient care, frequent reevaluation, review and interpretation of medical data and results, and management of potentially life- threatening conditions. This is all outside of any medical procedures. Discharge Plan Discharge Clinical Impression: Urinary tract infection, Constipation Patient Disposition: Home, Self-Care Instructions: Urinary Tract Infection in Women (DC) Additional Instructions: Your blood work today is reassuring. As discussed, the CT scan of your abdomen shows possible fibroids in your uterus and cysts on both of your ovaries consistent with your history of PCOS. Please follow up with your OBGYN regarding these findings. If you do not have one, you have been provided with a referral. Call them to establish care. It also shows moderate constipation. You may take over the counter miralax as needed to move your bowels. The ultrasound of your right upper abdomen shows a normal gallbladder. Your urine today was positive for infection. Ceftin is an antibiotic that has been sent to your pharmacy. Take this as prescribed and do not miss any doses. You must complete the entire course of antibiotics. If you do not, there is a risk of the infection coming back or worsening. Follow up with your primary care provider as needed. If you develop a fever or new/ worsening symptoms call 911 or come back to the ER for further evaluation. Prescriptions: New cefuroxime axetil 250 mg tablet 250 mg PO BID 7 Days Qty: 14 0RF No Action adapalene [Differin] 0.1 % gel 1 appl topical BEDTIME Qty: 15 1RF bupropion HCl [Wellbutrin XL] 150 mg tablet extended release 24 hr 150 mg PO QAM Qty: 30 1RF Rx Instructions: Take 150 mg per tab in a.m., and may increase dose to 2 tablets or 300 mg p.o. in a.m. after 2 weeks as needed for control of depression drospirenone-ethinyl estradiol [Roma (28)] 3-0.02 mg tablet 1 tab PO DAILY Referrals: [facility] [Provider Group] Yarelis Crane MD [Primary Care Provider] - Print Language: Citizen Of [place]
[2023-12-16 14:00] LABS: MANUAL DIFF FLAG NO
[2023-12-16 14:02] LABS: Basophils Percent Auto 0.5 % (0-2); Eosinophils Absolute Auto 0.1 X10*3/uL (0.0-0.4); Eosinophils Percent Auto 0.7 % (0-4); Hematocrit 40.7 % (37.0-47.0); Hemoglobin 14.3 g/dl (12.0-16.0); Imm Gran Abs Auto 0.03 X10*3/uL (0.00-0.03); Imm Gran Pct Auto 0.4 % (0.0-0.4); Lymphocytes Absolute Auto 2.5 X10*3/uL (1.2-4.9); Lymphocytes Percent Auto 30.7 % (20-40); Mean Corpuscular HGB Conc 35.1 g/dl (31.0-35.0); Mean Corpuscular Hemoglobin 32.1 pg (27.0-33.0); Mean Corpuscular Volume 91.5 fL (80.0-98.0); Mean Platelet Volume 9.3 fL (9.4-12.3); Monocytes Absolute Auto 0.4 X10*3/uL (0.1-1.2); Monocytes Percent Auto 5.1 % (2-11); Neutrophils Absolute Auto 5.1 x10*3/uL (2.0-8.3); Neutrophils Percent Auto 62.6 % (45-73); Platelet Count 265 X10*3/uL (160-400); Red Blood Count 4.45 X10*6/uL (4.20-5.50); Red Cell Distribution Width 11.5 % (11.0-16.0); White Blood Count 8.1 X10*3/uL (4.8-10.8)
[2023-12-16 14:18] LABS: Appearance Urine Cloudy; Glucose Urine UA Negative (Negative); Leukocyte Esterase Urine Small (1+) (Negative); Nitrite Urine Negative (Negative); PH 5.5 (5.0-9.0); Specific Gravity - Urine 1.015 (1.005-1.025); UMIC TRIGGER UACC YES; Urine Blood Large (3+) (Negative); Urine Ketones Negative (Negative); Urine Protein 30 (1+) mg/dL (Neg-Trace)
[2023-12-16 14:19] LABS: Bacteria Urine Trace (None Seen); Color Urine PINK; Hyaline Casts Urine 0-2 /LPF (0-2); RBC Urine >20 /HPF (0-2); UACC Culture Trigger YES
[2023-12-16 14:20] LABS: Lactic Acid 4.3 mmol/L (0.5-2.0)
[2023-12-16 14:26] LABS: Alanine Aminotransferase 13 U/L (0-31); Albumin Level 4.4 g/dL (3.5-5.0); Alkaline Phosphatase 39 U/L (39-117); Anion Gap 15 (12-20); Aspartate Amino Transferase 21 U/L (5-31); Bilirubin Direct < 0.2 mg/dL (0.0-0.5); Bilirubin Total 0.2 mg/dL (0.0-1.0); Blood Urea Nitrogen 9 mg/dL (9-16); Calcium 9.6 mg/dL (8.4-10.2); Carbon Dioxide 24 mmol/L (22-29); Chloride 108 mmol/L (96-108); Creatinine Clr Calc Pharmacy 95.1; Estimated Glomerular Filt Rate > 60; Glucose Random 91 mg/dL (60-115); Lipase 47 U/L (8-78); Potassium 4.5 mmol/L (3.3-5.1); Sodium 142 mmol/L (135-145); Total Protein 7.5 g/dL (6.5-8.0)
[2023-12-16 14:27] LABS: HCG Quantitative < 2 mIU/mL
--- NOTE | 2023-12-16 14:49 | PC.NURSE ---
Pt presents from home, reports she went to walk-in clinic today that advised her to come here. Reports RLQ pain since 9AM this morning with associated N/V, started suddenly. Reports it radiates across her abdomen, burning and aching. Also has had burning with urination X2 days. Alert and oriented, breathing even and unlabored. Appears comfortable at this time, reports the pain has subsided.
[2023-12-16] MEDS: iohexoL 350 MG/ML 100 ML INFUS..BTL 85 ML IV (15:05)
[2023-12-16] MEDS: 0.9 % Sodium Chloride 1,000 ML 999 ML IV ×2 (15:32→17:13)
[2023-12-16] MEDS: Piperacillin Sodium/Tazobactam 3.375 GM in 0.9 % Sodium Chloride 50 ML IV (15:32)
[2023-12-16 15:59] LABS: Reflex Lactate? Lactic Acid Added
[2023-12-16] MEDS: metroNIDAZOLE/NS 500 MG/100 ML PIGGYBACK 100 MG IV (16:11)
[2023-12-16 17:51] VITALS: BP 134/84; PULSE 72; RESP 16; TEMP 36.6; O2SAT 100
--- NOTE | 2023-12-16 18:09 | PC.NURSE ---
Pt resting comfortable, denies new complaints.
[2023-12-16 18:27] LABS: Reflex Lactate? 2 Y
[2023-12-16 18:48] VITALS: BP 134/84; PULSE 72; RESP 16; TEMP 36.6; O2SAT 100
== END 2023-12-16 18:49 | disposition home or self-care (01) ==
PROVIDERS: Physician Assistant; Emergency Provider Emergency Medicine; PCP Internal Medicine
DX: N39.0 Urinary tract infection, site not specified (principal); K59.00 Constipation, unspecified; R30.0 Dysuria; R10.11 Right upper quadrant pain; R11.0 Nausea; Z79.899 Other long term (current) drug therapy
CPT/HCPCS: 36415; 74177; 76705; 80048; 80076; 81001; 83605; 83690; 83735; 84702; 85025; 87040; 87086; 96361; 96365; 96375; 99212; 99284; 99285; J1836; J2543; Q9967

== ENCOUNTER 2023-12-22 13:06 | Outpatient (AMB) | payer OTHER, SELFPAY ==
[2023-12-22 13:37] VITALS: BP 112/80; PULSE 80; O2SAT 99; BMI 25.2
--- NOTE | 2023-12-22 13:37 | A.OFFPC_ITS ---
Vital Signs 12/22/23 13:37 Height 5 ft 2 in Weight 138 lb BMI 25.2 BP 112/80 Blood Pressure Location Rt brachial Position Sitting Pulse 80 Pulse Source Pulse Oximeter Pulse Oximetry (%) 99 Oxygen Delivery Method Room Air Intake Visit Reasons: ED f/u constipation Intake Note: Pt is here today for a ED f/u for constipation Allergies No Known Allergies Allergy (Verified 12/23/23 03:38) Medication List - Last Reconciled 12/23/23 by Yarelis Crane MD bupropion HCl XL (Wellbutrin XL) 150 mg PO QAM cefuroxime axetil 250 mg PO BID 7 days docusate sodium (Colace) 100 mg PO DAILY drospirenone-ethinyl estradiol 3-0.02 mg (Roma (28)) 1 tab PO DAILY sennosides (Senokot) 8.6 mg PO BEDTIME PRN Tobacco use date assessed: 12/22/23 Dental Screening Dental Screen Date: 12/22/23 Did you have a dental visit in the last 12 months?: Yes Did you have a dental problem in the last 6 months where you did not have access to dental care?: Yes Was dental information given to patient?: Patient has dentist HPI ED f/u constipation HPI Details 23 yo female with history of ADHD, anxie ty/depression here today for follow-up after recent ER visit where she presented with diffuse abdominal pain, dry heaving that started after eating a fruit cup. Initially was seen [facility] and sent to the ER for evaluation of possible appendicitis, she had right lower quadrant tenderness on examination there. Pain is waxing and waning, currently a 4-5/10. shes on her menstrual cycle now. ER labs showed cbc without leukocytosis or left shift. no anemia. h&h stable. chemistry wihthout acute electrolyte abnormality, no CONNIE. normal liver function. lipase wnl,. beta hcg quant undetectable, urine w/ small leukocytes, 6-10 WBCs, trace urine bacteria, over 20 urine RBCs likely secondary to current menstrual cycle. CT abdomen/pelvis showed liver is normal in size., gallbladder unremarkable without stones or gallbladder wall thickening, unremarkable appendix, there is moderate fecal retention with nonobstructive bowel pattern, possible fibroid uterus with bilateral ovarian follicle/cyst, consistent with patient's history of PCOS. Gallbladder ultrasound showed normal gallbladder. She was prescribed Ceftin urinary tract infection, and discharged home. At present patient states that abdominal pain has resolved, but still fasting hard stools. Denies any urinary symptoms. Patient states that she has an OBGYN that she has an appointment already scheduled to evaluate results of recent CT sca of pelvis which showed possible fibroid uterus with bilateral ovarian cyst. [facility]LY [facility], [facility] Medical History PCOS (polycystic ovarian syndrome) Hair thinning Anxiety with depression ADHD Persistent depressive disorder with anxious distress, currently moderate Acne vulgaris History of hemorrhoids Family history of thyroid cancer Family History Mother Acquired hypothyroidism Mental health disorder Mother No problems noted. Maternal Grandmother Thyroid cancer Breast cancer Maternal Grandfather Essential hypertension Coronary artery arteriosclerosis Diabetes mellitus Brother Rheumatoid arthritis Social History Housing: Apartment Patient Tobacco Use Status: Never used Tobacco e-Cigarette/Vaping Use: Currently Using service: Yes Current occupational status: employed Cognitive needs: No Hearing needs: No Vision needs: Yes Questionnaire Thrive Questionnaire Date Thrive assessed: 06/09/23 MOIRA-7 AMB Questionnaire MOIRA-7 Date MOIRA - 7 assessed: 12/12/23 Source: Developed by Drs. Jono Russo, Steph Alanis, Roberto Garcia and colleagues, with an educational lawson from [employer]. Review of Systems Const Denies chills, Denies fatigue and Denies fever(s) ENT Reports no additional complaints Card Reports no additional complaints Resp Reports no additional complaints GI Reports as per HPI, Denies abdominal pain, Denies belching, Denies melena, Denies bloating, Denies hematochezia, Denies constipation, Denies heartburn and Denies vomiting Denies hematuria, Denies urinary frequency, Denies difficulty voiding, Denies dysuria, Denies urinary incontinence, Denies urinary hesitancy, Denies urinary urgency and Denies vaginal discharge Musc Reports no additional complaints Skin/Breast Reports system reviewed and no additional complaints, except as documented Neuro Reports no additional complaints Psych Reports no additional complaints Endo Denies fatigue Will/Lymph Reports no additional complaints Physical exam (Primary Care) Vital Signs: Last Vital Signs Pulse 80 09/23/24 13:37 BP 112/80 12/22/23 13:37 Pulse Ox 99 12/22/23 13:37 Oxygen Delivery Method Room Air 12/22/23 13:37 BMI result Body Mass Index 25.2 Tobacco/Smoking Status: Tobacco use Status Tobacco use date assessed 12/22/23 12/22/23 13:45 Patient Tobacco Use Status Never used Tobacco 12/22/23 13:40 e-Cigarette/Vaping Use Currently Using 12/22/23 13:40 Thrive Assessment: Date of Thrive Assessment Date Thrive assessed 06/09/23 12/22/23 13:40 Const General: no acute distress and alert Nutritional Appearance: overweight HENMT Mouth: Normal oral and palatal mucosa present, oropharynx normal and moist mucous membranes Eyes General: appearance normal, both eyes and all related structures Neck Neck: Yes full ROM, Yes no lymphadenopathy and Yes supple Thyroid: Thyroid normal Resp Effort & Inspection: normal respiratory effort and able to speak in complete sentences Auscultation: clear to auscultation bilaterally Cardio Rate: regular rate Rhythm: regular rhythm Heart sounds: S1 normal heart sound present and S2 normal heart sound present GI Palpation (GI): Soft to palpation, nontender, no guarding and no masses Auscultation: normal bowel sounds General: Yes no CVA tenderness Back/Spine/Pelvis Back: no CVA tenderness Extrem General: Yes normal to inspection, Yes full ROM, Yes no joint enlargement, Yes no pedal edema and Yes normal gait Assessment and Plan Assessment & Plan (1) PCOS (polycystic ovarian syndrome): Code(s): E28.2 - Polycystic ovarian syndrome Plan: Has appointment already scheduled with her OBGYN, Dr. Menchaca (2) Constipation: Code(s): K59.00 - Constipation, unspecified Qualifiers: Constipation type: unspecified constipation type Qualified Code(s): K59.00 - Constipation, unspecified Plan: Advised increase dietary fiber intake and adequate hydration, continue with regular exercise, prescription sent for Colace 100 mg per capsule to take 1-2 capsules daily, and may take an occasional Senokot as needed if no bowel movement after 2 days. Medications: New sennosides (Senokot) 8.6 mg PO BEDTIME PRN 20 tabs 0RF constipation docusate sodium (Colace) 100 mg PO DAILY 30 caps 1RF K59.00 - Constipation, unspecified Coding Level of Care Code Est Pt Level 3 (07423) Diagnoses PCOS (polycystic ovarian syndrome) E28.2 Constipation, unspecified constipation type K59.00 Constipation type: unspecified constipation type
== END 2023-12-22 14:18 | disposition home or self-care (01) ==
PROVIDERS: PCP Internal Medicine; Visit Provider Internal Medicine
DX: E28.2 Polycystic ovarian syndrome (principal); K59.00 Constipation, unspecified

== ENCOUNTER → 2023-12-22 13:06 | Outpatient (BNVA) | payer OTHER, SELFPAY | PROVIDERS: PCP Internal Medicine; Visit Provider Internal Medicine | DX: E28.2 Polycystic ovarian syndrome (principal); K59.00 Constipation, unspecified | CPT/HCPCS: 99212 ==

== ENCOUNTER 2024-03-01 08:43 | Outpatient (AMB) | payer OTHER, SELFPAY ==
--- NOTE | 2024-03-01 09:25 | AM.OFFWIN_ITS ---
Intake Vital Signs 03/01/24 09:26 Height 5 ft 2 in Weight 145 lb BMI 26.5 BP 112/72 Blood Pressure Location Rt brachial Position Sitting Pulse 68 Pulse Source Pulse Oximeter Temp 97.8 F Temp Source Oral Pulse Oximetry (%) 98 Oxygen Delivery Method Room Air Intake Visit Reasons: EP-cough, sore throat, headache, congestion Intake Note: Patient here for cough, sore throat, slight fever, headache and congestion that started friday Patient Tobacco Use Status: Never used Tobacco Allergies No Known Allergies Allergy (Verified 03/01/24 09:35) Do you need a note to return to daycare/school/sports/work: No HPI EP-cough, sore throat, headache, congestion HPI Details This note is constructed using voice recognition software. While every effort has been made to ensure accuracy, art objects repairer errors may have been included. The patient is a 23 year old female who presents to the clinic today with sore throat, headache, sinus congestion, cough for the past 6 days. She reports that she did go to Thanksgiving dinner, despite having the symptoms as she only had a sore throat at that point. She then developed a mild fever 99.8. She was taking Tylenol for the fever. She has been taking DayQuil and NyQuil for symptomatic management. She generally does not feel like her symptoms are improving. She also notes that she was positive for COVID about 1 month ago, and did not continue to test after her illness to show negative, so she understands that there is a possibility she may also be showing positive for COVID, but it may be an entirely different illness. [facility] Medical History PCOS (polycystic ovarian syndrome) Hair thinning Anxiety with depression ADHD Persistent depressive disorder with anxious distress, currently moderate Acne vulgaris History of hemorrhoids Family history of thyroid cancer Family History Mother Acquired hypothyroidism Mental health disorder Mother No problems noted. Maternal Grandmother Thyroid cancer Breast cancer Maternal Grandfather Essential hypertension Coronary artery arteriosclerosis Diabetes mellitus Brother Rheumatoid arthritis Social History Housing: Apartment Patient Tobacco Use Status: Never used Tobacco e-Cigarette/Vaping Use: Currently Using service: Yes Current occupational status: employed Cognitive needs: No Hearing needs: No Vision needs: Yes Review of Systems Const All systems reviewed & are unremarkable except as noted in HPI and below Physical Exam Vital Signs: Last Vital Signs Temp 97.8 F 03/01/24 09:26 Pulse 68 03/01/24 09:26 BP 112/72 03/01/24 09:26 Pulse Ox 98 03/01/24 09:26 Oxygen Delivery Method Room Air 03/01/24 09:26 BMI result Body Mass Index 26.5 Const General: cooperative, healthy appearing, comfortable and no acute distress Orientation/consciousness: patient oriented x3 Limitations: no limitations HEENT Head: Yes normal to inspection Ears: hearing grossly normal bilaterally, external ears normal and TM's normal bilaterally General nose exam: Normal external nose present, Normal nares present and No nasal discharge present Face and sinus: Yes normal facial exam and Yes sinuses nontender Mouth: Normal oral and palatal mucosa present and moist mucous membranes Throat: Yes tonsils normal, Yes uvula midline and Yes posterior oropharynx abnormal (Erythema) Eyes General: appearance normal, both eyes and all related structures Neck Neck: Yes normal visual inspection Resp Effort & Inspection: normal respiratory effort, able to speak in complete sentences, Actively coughing, no respiratory distress, not tachypneic, no tripod positioning and no use of accessory muscles Auscultation: clear to auscultation bilaterally Cardio Jugular venous distension: no JVD Rate: regular rate Rhythm: regular rhythm Heart sounds: S1 normal heart sound present, S2 normal heart sound present, no click, no gallops, no murmurs and no rubs Skin General skin exam: no rashes or lesions noted, elasticity normal and turgor normal Neuro General: patient oriented x3 Extrem General: Yes normal to inspection and Yes no clubbing, cyanosis or edema Results AMB Rapid Strep AMB Rapid Strep Negative Last Edit by LYLA Mistry on 03/01/24 09:46 Assessment & Plan Assessment & Plan (1) URI (upper respiratory infection): Code(s): J06.9 - Acute upper respiratory infection, unspecified Qualifiers: URI type: unspecified URI Qualified Code(s): J06.9 - Acute upper respiratory infection, unspecified Plan: Viral swab obtained to rule out Covid, Flu, RSV based on symptoms. Advised mask wearing while symptomatic and quarantine per current CDC guidelines. Reviewed at home support methods including hydration, humidification, vix vapor rub, sinus rinse. Discussed treatment with antiviral therapy for covid with paxlovid and for flu with tamiflu including appropriate use and side effects, and need to start medication within 5 day of symptom onset, preferably within 48 hours of symptom onset. Patient is outside of treatment window with antiviral therapy Advised follow up with worsening symptoms such as dyspnea at rest, which would require emergent evaluation. Plan See above for full details and plan. Orders: Orders SARS-CoV2/FLU/RSV Today J06.9 - Acute upper respiratory infection, unspecified AMB Rapid Strep Screen Today Z13.9 - Encounter for screening, unspecified Medications: New guaifenesin 400 mg PO Q4H PRN 30 tabs 0RF cough Coding Level of Care Code Est Pt Level 3 (37828) Diagnoses Upper respiratory tract infection, unspecified type J06.9 URI type: unspecified URI
[2024-03-01 09:26] VITALS: BP 112/72; PULSE 68; TEMP 36.6; O2SAT 98; BMI 26.5
== END 2024-03-01 09:58 | disposition home or self-care (01) ==
PROVIDERS: PCP Internal Medicine; Visit Provider Registered Nurse
DX: J06.9 Acute upper respiratory infection, unspecified (principal); Z13.9 Encounter for screening, unspecified

== ENCOUNTER 2024-03-01 08:43 | Outpatient (REF) | payer OTHER, SELFPAY ==
[2024-03-01 19:43] LABS: Influenza A PCR NEGATIVE (Negative); Influenza B PCR NEGATIVE (Negative); Resp Syncy Virus RNA Qual PCR NEGATIVE (Negative); SARS COV2 PCR INHOUSE NEGATIVE (Negative)
== END 2024-03-01 08:44 | disposition home or self-care (01) ==
LOC: HO.LNP 08:43
PROVIDERS: PCP Internal Medicine; Visit Provider Registered Nurse
DX: J06.9 Acute upper respiratory infection, unspecified (principal)
CPT/HCPCS: 0241U; 87880; 99212

== ENCOUNTER 2024-03-12 14:44 | Outpatient (AMB) | payer OTHER, SELFPAY ==
--- OUTSIDE RECORDS SUMMARY | 2024-03-12 14:46 | XMS_ITS | Continuity of Care Document ---
Author Name [facility] Organization [facility] Care Team Providers Care Director Of Flight Operations Name Role Phone [facility] Unavailable Unavailable Problems Combined list of problems from Department of Defense and Veterans Affairs facilities. It does not include entries that were removed or entered in error. Problem Status Onset Date Problem Type Date of Resolution Comments Source urinary tract infection Inactive 05/23/2021 Condition DoD depression with anxiety Active 11/19/2020 Condition DoD vaginal discharge Inactive 10/16/2020 Condition DoD vaginal discharge Inactive 09/14/2020 Condition DoD open wound of the finger Inactive 05/25/2020 Condition DoD Bilateral regular astigmatism Active Condition Ambulatory Pharmacy Headache Active Condition Ambulatory Pharmacy Hyperopia of bilateral eyes Active Condition Ambulatory Pharmacy Myalgia, unspecified site Active Condition DoD Constipation, unspecified Active Condition DoD Urgency of urination Active Condition DoD Medications Combined list of outpatient medications from Department of Defense and Veterans Affairs facilities.Medications provided include 1) outpatient medications from the last 15 months, and 2) patient-reported medications. Medication Details Route Status Patient Instructions Prescription Expires Prescription Number Last Dispense Date Ordering Provider Order Date Order Qty Source ADAPALENE (ADAPALENE) , 0.1%, CREAM(GM), TOPICAL, FOUGERA, 45 g TUBE Cancele d [id number] : 2023 0 Pharmac y Data Transac tion Service Facilit y BUPROPION XL (bupropion HCl), 150 MG, TAB ER 24H, ORAL, CIPLA [employer] 500 ea. BOTTLE Active [id number] 2023 30 Pharmac y Data Transac tion Service Facilit y CEPHALEXIN (CEPHALEXIN MONOHYDRATE ), 500MG, CAPSULE, ORAL, LUPIN PHARMACEU, 500 ea. BOTTLE Active [id number] 2023 14 Pharmac y Data Transac tion Service Facilit y FLUCONAZOLE (fluconazol e), 150 MG, TABLET, ORAL, ZYDUS PHARMACEU, 12 ea. BLIST PACK Active [id number] 2023 2 Pharmac y Data Transac tion Service Facilit y METRONIDAZO LE (METRONIDAZ OLE), 500MG, TABLET, ORAL, PLIVA[employer] INC, 100 ea. BOTTLE Active [id number] 2023 14 Pharmac y Data Transac tion Service Facilit y EPHRAIM (ethinyl estradiol/d rospirenone ), 0.02-3(28), TABLET, ORAL, LUPIN PHARMACEU, 28 ea. BLIST PACK Active [id number] 4 2023 84 Pharmac y Data Transac tion Service Facilit y Nitrofurant oin ([employer]) 100 CAPSULE in 1 BOTTLE Active [id number] 2023 20 Pharmac y Data Transac tion Service Facilit y sertraline 100 mg oral tablet TAKE ONE TABLET BY MOUTH EVERY DAY, # 90 EA, 3 total refill(s ), Acute Complet ed 12/28/2021 90.0 Ambulat ory Pharmac y sertraline 25 mg tablet See dose instruct ions in comments , # 30 EA, 3 total refill(s ), Acute Complet ed 04/12/2023 30.0 Ambulat ory Pharmac y Zoloft 25 mg oral tablet 1 tab(s), Oral, Daily, # 90 tab(s), 3 total refill(s ), Maintena nce, 1 tab(s) Oral Daily, Pharmacy : [facility] Oral (given by mouth) Ordered 90.0 [id number] [facility] Allergies, Adverse Reactions, Alerts Combined list of allergies from Department of Defense and Veterans Affairs facilities. It does not include entries that were removed or entered in error. Substance Category Reaction Severity Reaction type Status Date Reported Comments Source No Known Allergies Drug allergy (disorder) active 12/05/2017 [facility] Immunizations Combined list of available immunizations from the Department of Defense and Veterans Affairs facilities. Immunization Series Date Given Administered By Site Reaction Lot Number CVX Code Drug Clinical Data Associate Status Comments Source influenza, injectable, quadrivalent, contains preservative 0 2021 [id number] Sanofi Pasteur ([facility]) complet ed influenza , injectabl e, quadrival ent, contains preservat horace [facility] influenza, injectable, quadrivalent 2020 [id number] 158 Seqirus complet ed influenza , injectabl e, quadrival ent 01/22/21 Given Ambulat ory Pharmac y influenza, injectable, quadrivalent, contains preservative 0 2020 [id number] 158 Seqirus (SEQ) complet ed influenza , injectabl e, quadrival ent, contains preservat horace DoD anthrax vaccine 2020 [id number] Emergent Biosolutions complet ed anthrax vaccine 11/02/20 Given Ambulat ory Pharmac y anthrax vaccine 2 2020 [id number] Emergent [employer] Ricardo (MIP) complet ed anthrax vaccine DoD anthrax vaccine 2020 [id number] Emergent [employer] complet ed anthrax vaccine 09/27/20 Given Ambulat ory Pharmac y anthrax vaccine 1 2020 [id number] 24 [employer] Ricardo (MIP) complet ed anthrax vaccine DoD typhoid Vi capsular polysaccharid e vac 2020 [id number] 101 sanofi pasteur complet ed typhoid Vi capsular polysacch aride vac 07/18/20 Given Ambulat ory Pharmac y typhoid Vi capsular polysaccharid e vaccine 1 2020 [id number] 101 Sanofi Pasteur (PMC) complet ed typhoid Vi capsular polysacch aride vaccine DoD typhoid Vi capsular polysaccharid e vac 2020 [id number] 101 sanofi pasteur complet ed typhoid Vi capsular polysacch aride vac 07/11/20 Given Ambulat ory Pharmac y typhoid Vi capsular polysaccharid e vaccine 1 2020 [id number] 101 Sanofi Pasteur (PMC) complet ed typhoid Vi capsular polysacch aride vaccine DoD COVID Vaccine Pfizer 2020 Perfecto baugh Arm [id number] PFIZER complet ed COVID Vaccine Pfizer 05/01/20 Given Ambulat ory Pharmac y SARS-COV-2 (COVID-19) vaccine, mRNA, spike protein, LNP, preservative free, 30 mcg/0.3mL dose 2 2020 LORENA STEVENS [id number] Pfizer, Inc (PFR) complet ed SARS-COV- 2 (COVID-19 ) vaccine, mRNA, spike protein, LNP, preservat horace free, 30 mcg/0.3mL dose DoD COVID Vaccine Pfizer 2020 Perfecto baugh Arm [id number] [facility] complet ed COVID Vaccine Pfizer 04/10/20 Given Ambulat ory Pharmac y SARS-COV-2 (COVID-19) vaccine, mRNA, spike protein, LNP, preservative free, 30 mcg/0.3mL dose 1 2020 [place] [id number] Pfizer, Inc (PFR) complet ed SARS-COV- 2 (COVID-19 ) vaccine, mRNA, spike protein, LNP, preservat horace free, 30 mcg/0.3mL dose DoD influenza, injectable, quadrivalent 2019 [id number] 158 Seqirus complet ed influenza , injectabl e, quadrival ent 02/03/20 Given Ambulat ory Pharmac y influenza, injectable, quadrivalent, contains preservative 0 2019 [id number] 158 Seqirus (SEQ) complet ed influenza , injectabl e, quadrival ent, contains preservat horace DoD influenza, injectable, quadrivalent 2018 [id number] 158 Unknown complet ed influenza , injectabl e, quadrival ent 01/14/19 Given Ambulat ory Pharmac y influenza, injectable, quadrivalent, contains preservative 0 2018 [id number] 982 158 Other (OTH) complet ed influenza , injectabl e, quadrival ent, contains preservat horace DoD hepatitis B pediatric/ado lescent 2018 Perfecto baugh Arm [id number] 08 GlaxoSmithKli ne complet ed hepatitis B pediatric /adolesce nt 05/20/18 Given Ambulat ory Pharmac y hepatitis B vaccine, pediatric or pediatric/ado lescent dosage 3 2018 OSCAR GLOVER [id number] 08 [facility] (SKB) complet ed hepatitis B vaccine, pediatric or pediatric /adolesce nt dosage DoD influenza, injectable, quadrivalent 2018 [id number] 158 Unknown complet ed influenza , injectabl e, quadrival ent 05/12/18 Given Ambulat ory Pharmac y influenza, injectable, quadrivalent, contains preservative 0 2018 [id number] 158 Unknown (UNK) comple t ed influenza , injectabl e, quadrival ent, contains preservat horace DoD varicella virus vaccine 2017 zzLef t Arm [id number] 21 Merck & Company Inc complet ed varicella virus vaccine 11/07/17 Given Ambulat ory Pharmac y hepatitis B pediatric/ado lescent 2017 zzLef t Arm [id number] 08 GlaxoSmithKli ne complet ed hepatitis B pediatric /adolesce nt 11/07/17 Given Ambulat ory Pharmac y poliovirus vaccine, inactivated 2017 zzRig ht Arm [id number] 10 sanofi pasteur complet ed polioviru s vaccine, inactivat ed 11/07/17 Given Ambulat ory Pharmac y hepatitis B vaccine, pediatric or pediatric/ado lescent dosage 2 2017 ENRIQUETA [place] [id number] 08 [employer] (SKB) complet ed hepatitis B vaccine, pediatric or pediatric /adolesce nt dosage DoD poliovirus vaccine, inactivated 1 2017 ENRIQUETA [place] [id number] 10 Sanofi Pasteur (PMC) complet ed polioviru s vaccine, inactivat ed DoD varicella virus vaccine 2 2017 [place]RI[place] [id number] 21 Merck (MSD) complet ed varicella virus vaccine DoD meningococcal A,C,Y,W-135 (MCV4P) 2017 zzLef t Arm [id number] 114 Unknown complet ed meningoco ccal A,C,Y,W-1 35 (MCV4P) 10/06/17 Given Ambulat ory Pharmac y varicella virus vaccine 2017 zzLef t Arm [id number] 21 Merck & Company Inc complet ed varicella virus vaccine 10/06/17 Given Ambulat ory Pharmac y tetanus, diphtheria, acellular pertu is 2017 zzRig ht Arm [id number] 115 GlaxoSmithKli ne complet ed tetanus, diphtheri a, acellular pertussis 10/06/17 Given Ambulat ory Pharmac y hepatitis B pediatric/ado lescent 2017 zzLef t Arm [id number] 08 GlaxoSmithKli ne complet ed hepatitis B pediatric /adolesce nt 10/06/17 Given Ambulat ory Pharmac y adenovirus vaccine, live 2017 [id number] 143 Unknown complet ed adenoviru s vaccine, live 10/06/17 Given Ambulat ory Pharmac y hepatitis B vaccine, pediatric or pediatric/ado lescent dosage 1 2017 COLTON JUNIOR [id number] 08 SmithKline (SKB) complet ed hepatitis B vaccine, pediatric or pediatric /adolesce nt dosage DoD varicella virus vaccine 1 2017 COLTON JUNIOR [id number] 21 Merck (MSD) complet ed varicella virus vaccine DoD meningococcal polysaccharid e (groups A, C, Y and W-135) diphtheria toxoid conjugate vaccine (MCV4P) 1 2017 COLTON JUNIOR [id number] 114 Other (OTH) complet ed meningoco ccal polysacch aride (groups A, C, Y and W-135) diphtheri a toxoid conjugate vaccine (MCV4P) DoD tetanus toxoid, reduced diphtheria toxoid, and acellular pertu is vaccine, adsorbed 1 2017 COLTON JUNIOR [id number] 115 SmithKline (SKB) complet ed tetanus toxoid, reduced diphtheri a toxoid, and acellular pertussis vaccine, adsorbed DoD Adenovirus, type 4 and type 7, live, oral 1 2017 COLTON JUNIOR [id number] 143 Other (OTH) complet ed Adenoviru s, type 4 and type 7, live, oral DoD Results Combined list of recent chemistry, hematology and other laboratory results from Department of [facility]sport[facility] and Veterans [facility], ranging from 15 months to all on record, depending upon the facility. Order Name Results Value Reference Range Date Interpretation Specimen Comments Source Chemistry T4 Total 7.70 ug/dL 4.87 - 11.72 07/26 N Ambulatory [facility] Chemistry TSH 0.9477 0.3500 - 4.9400 07/26 N Ambulatory [facility] Immunology /Serology TPO Ab LC 12 IU/mL 07/26 Result Comment: Performed At: [address] [id number] Julian Neal MD Ph:[phone] Ambulatory Pharmacy Vital Signs Combined list of inpatient and outpatient Vital Signs from Department of [employer]sport[facility] and Veterans [facility], ranging from 12 months to all on record, depending upon the facility. Vital Sign Value Date Comments Source No data available for this section Ambulatory Pharmacy Encounters Combined list of: 1) Encounters from Department of Veterans Affairs facilities going back up to thelast 18 months. 2) Encounters from the Department of Defense facilities going back up to 280 months. 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 History 03/31 One or More VHA Facilit ies DRYING MACHINE BACK TENDER [facility](Op tometry [facility] 1523) OUTPATIENT [id number] CRISTIN DARBY 10/03 Released w/o Limitations [facility]( Optomet ry [facility] 1523) [facility](Fe male Screening 1523) OUTPATIENT [id number] ACUTE FRANCIS HAMILTON 10/06 Released w/o Limitations [facility]( Female Screeni ng 1523) [facility](Im munizatio n 1523) OUTPATIENT [id number] Notes Entered by: Kala JUNIOR 06 Oct 2017 1359 ------- ------- ------- ------- -- P4 Immuniz ations SRINIVAS LOVE 10/06 Released w/o Limitations [facility]( Immuniz ation 1523) [facility](Au diology [facility] 1523) OUTPATIENT [id number] AVANI LCARKE 10/16 Released w/o Limitations [facility]( Audiolo gy [facility] 1523) [facility] Female) OUTPATIENT [id number] Notes Entered by: DILAN BARAKAT 29 Oct 2017 1410 ------- ------- ------- ------- -- RAAD SANCHEZ 10/29 Released w/o Limitations [facility]( [facility] Female) [facility](Im munizatio n 1523) OUTPATIENT [id number] Notes Entered by: Adelita CANADA 07 Nov 2017 1134 ------- ------- ------- ------- -- 5-2 Immuniz ations SRINIVAS LOVE Matt 11/07 Released w/o Limitations [facility]ze Ad[facility]( Immuniz ation 1523) [facility] [place] Obstetric s) OUTPATIENT [id number] Notes Entered by: BARRY PINK 13 May 2018 0811 ------- ------- ------- ------- -- [facility] FRANCIS GARCIA 05/13 Released w/o Limitations [place](July[place] Obstetr ics) [place] Obstetric [place] TELE CONSULT [id number] Notes Entered by: ERNST GARCIA 14 May 2018 0728 ------- ------- ------- ------- -- Lab results MANJIT BROCK 05/14 Referred [place] Appointment [place] [facility] [place] [facility] [facility]IENT [id number] Notes Entered by: NEGRA APPIAH 20 May 2018 0837 ------- ------- ------- ------- -- OSCAR FRANCO 05/20 Released [place]/o Limitations [place] [facility] [place](July[place] Obstetric s) TELE CONSULT [id number] Notes Entered by: ERNST GARCIA 21 May 2018 0742 ------- ------- ------- ------- -- LAB RESULTS MANJIT BROCK 05/21 Referred for Appointment [place]st[place] [facility] [place]July Preventiv e Medicine) TELE CONSULT [id number] Notes Entered by: JOCELYN MARTINEZ 22 May 2018 0909 ------- ------- ------- ------- -- Lumber Sorter Machine ing and Educati on JOCELYN MARTINEZ 05/22 Referred for Appointment [place]May Prevent horcae Medicin [place]) [place] Preventiv e Medicine) OUTPATIENT [id number] Notes Entered by: JOCELYN MARTINEZ 25 May 2018 1456 ------- ------- ------- ------- -- Lumber Sorter Machine ing and Educati on JOCELYN MARTINEZ 05/25 Released [place]/o Limitations [place] [facility] [place] Medicin [place] [facility] [place] [facility] [facility] OUTPATIENT [id number] Notes Entered by: JOCELYN MARTINEZ 27 May 2018 1528 ------- ------- ------- ------- -- Testing JOCELYN MARTINEZ 05/27 Released w/o Limitations [place] Medic[place]rolog [place]) [place]PATIENT [id number] OVERACT HORACE BLADDER LIAM JOSE 01/15 [place]ased [place]itations [place] OUTPATIENT [id number] tonsil stones, halitos is LINH TENA 12/27 [place]ased [place] Limitations [place]May [facility] Pate) TELE CONSULT [id number] Notes Entered by: NO SHARP 10 Feb 2020 0936 ------- ------- ------- ------- -- COVID TESTING RANDA PALACIOS 02/09 Other Not Elsewhere Classified [place] Family Pract[place]) OUTPATIENT [id number] preop tonsil dos [id number] LINH TENA 02/14 [place]ased [place] Limitations [place] OUTPATIENT [id number] ent EDDIE KYLE 02/14 [place]ased [place]/o Limitations [place]Pre[place] [facility] [place]) TELE CONSULT [id number] Notes Entered by: LOUIE MURILLO 25 Feb 2020 0728 ------- ------- ------- ------- -- COVID-1 9 CLINIC #[phone] CYRIL MCKEON 02/24 Other Not Elsewhere Classified [place] OUTPATIENT [id number] Notes Entered by: PHUONG GOMEZ 10 Apr 2020 0946 ------- ------- ------- ------- -- COVID VACCINE #1 [place] 04/10 Released [place] Limitations [place] [facility]) OUTPATIENT [id number] Notes Entered by: MUSA LAWRENCE 19 Apr 2020 0851 ------- ------- ------- ------- -- Problem s with kun pacheco ([facility]) ANA SMITH 04/19 Released w/o Limitations [place] [facility]) [place] Immun[place] Clinic[place] OUTPATIENT [id number] COVID 2 COREY AYON 05/01 Released w/o Limitations [place]July [facility]) [facility] Facility OUTPATIENT [id number] Theater Provider 05/24 Released with Work/Duty Limitations Theater Facilit [facility] OUTPATIENT [id number] Theater Provider 09/13 Released w/o Limitations Theater Fac[facility] OUTPATIENT [id number] Theater Provider 10/16 Released w/o Limitations Theater Fac[facility] OUTPATIENT [id number] Theater Provider 11/18 Released with Work/Duty Limitations Theater Fac[facility] OUTPATIENT [id number] Theater Provider 12/01 Released w/o Limitations Theater [facility] OUTPATIENT [id number] Theater Provider 12/12 Released w/o Limitations Theater [facility] OUTPATIENT [id number] Theater Provider 12/26 Released w/o Limitations Theater Fac[facility] OUTPATIENT [id number] Theater Provider 05/22 Released w/o Limitations Theater Facilit y [facility](Model Builder Display Urogyneco logy [facility]) OUTPATIENT [id number] inconti CHUCKY Roger 08/13 Released w/o Limitations [facility](Model Builder Display Urogyne cology [facility]) [facility](Hearing Cons Dandre Sta) OUTPATIENT [id number] AILEEN MITCHELL 08/16 Released w/o Limitations [facility](Hea ring Cons Dandre Sta) [facility](Model Builder Display Urogyneco logy [facility]) TELE CONSULT [id number] Notes Entered by: YULIA CARRENO 21 Aug 2021 1406 ------- ------- ------- ------- -- results CHUCKY GREENE 08/21 [facility](Model Builder Display Urogyne cology [facility]) [facility](Emergen cy Medicine [facility]) OUTPATIENT [id number] ARLET GASPAR 03/21 Released w/o Limitations [facility](Klaudia rgency Medicin e [facility]) Procedures Combined list of: 1) Procedures from Department of Veterans Affairs facilities going back up to thelast 18 months, not all VA non-surgical procedures are included; 2) All procedures from the Department of Defense facilities. Procedure Procedure Type Code Date Perfomer Comments Sourc e No data available for this section Ambulato ry Pharmacy IMMUNIZATION ADMINISTRATION (INCLUDES PERCUTANEOUS, INTRADERMAL, SUBCUTANEOUS, OR INTRAMUSCULAR INJECTIONS); EACH ADDITIONAL VACCINE (SINGLE OR COMBINATION VACCINE/TOXOID) [facility] PATIENT EDUCATION, NOT OTHERWISE CLASSIFIED, NON-PHYSICIAN PROVIDER, GROUP, PER SESSION [facility] INJECTION, PENICILLIN G BENZATHINE, 100,000 UNITS [facility] VIS FUNCT SCREEN,AUTOMAT/SE TX-AUTOMAT BILAT QUANT DETERM VISUAL ACUITY,OCULAR ALIGN,COLOR VISION,PSEUDOISOC HROMAT PLATES,& FIELD VIS (MAY INC ALL/SOME SCRN DETERM FOR CONTRAST SENSITIV,VIS UND GLARE) [facility] AUDIOMETRIC TESTING OF GROUPS [facility] PURE TONE AUDIOMETRY (THRESHOLD), AUTOMATED; AIR ONLY [facility] URINALYSIS, BY DIP STICK OR TABLET REAGENT FOR BILIRUBIN, GLUCOSE, HEMOGLOBIN, KETONES, LEUKOCYTES, NITRITE, PH, PROTEIN, SPEC GRAVITY, UROBILINOGEN, ANY NUMBER OF CONSTITUENTS; W/O MICRO, AUTOMATED DoD IMMUNIZATION ADM,INTRAMUSCULAR INJ,SEVERE AC RESPIRATORY SYNDROME CORONAVIR 2 (SARSCOV-2) (CORONAVIR DIS [COVID-19]) VACC,MRNALNP,SPIK E PROT,PRESRV FREE,30 MCG/0.3ML DOS,DILUENT RECONSTITUT;2ND DOSE DoD IMMUNIZATION ADM,INTRAMUSCULAR INJ,SEVERE AC RESPIRATORY SYNDROME CORONAVIR 2 (SARSCOV-2) (CORONAVIR DIS [COVID-19]) VACC,MRNALNP,SPIK E PROT,PRESRV FREE,30 MCG/0.3ML DOS,DILUENT RECONSTITUT;1ST DOSE [facility] UNLISTED SPECIAL SERVICE, PROCEDURE OR REPORT [facility] TELE ASSESS & MGT SRV PROV QUAL NONPHYS HLTH CARE PRO TO EST PAT,PARENT,GUARD NOT ORIG REL ASSESS & MGT SRV PROV W/IN PREV 7 DAYS NOR LEAD ASSESS & MGT SRV/PX W/IN NXT 24 HR/SOON APT;5-10 MIN MED DIS DoD IMMUNIZATION ADMINISTRATION (INCLUDES PERCUTANEOUS, INTRADERMAL, SUBCUTANEOUS, OR INTRAMUSCULAR INJECTIONS); 1 VACCINE (SINGLE OR COMBINATION VACCINE/TOXOID) [facility] TELE ASSESS & MGT SRV PROV QUAL NONPHYS HLTH CARE PRO TO EST PAT,PARENT,GUARD NOT ORIG REL ASSESS & MGT SRV PROV W/IN PREV 7 DAYS NOR LEAD ASSESS & MGT SRV/PX W/IN NXT 24 HR/SOON APT;5-10 MIN MED DIS [facility] Non-Physician Phone Call To Patient/Provider Brief (5-10min) Non-Physician Phone Call To Patient/Provider Brief (5-10min) [id number] MANJIT BROCK Telephone call to patient, identified with full name and . Advised of Chlamydia results and Azithromycin order. Instructions given on use. Advised to notify all sexual partners so they can be tested and treated as well, to abstain/ use safe sex practices until cleared. Advised Preventive med will be contacting her as well. Call to Prev med, patient info and contact number given. Patient verbalizes understanding w/o further questions or concerns. DoD Hepatitis B Vaccine (Active); [place] To 11 Years Hepatitis B Vaccine (Active); [place] To 11 Years [id number] OSCAR GLOVER Hep B, adolescent or pediatric; Series #: 3; .5 mL; IM; Left Arm; g: [employer]; Lot: [id number]; VIS given ([place]: 10/18/2015). DoD Immunization Administration By Injection, One Vaccine Immunization Administration By Injection, One Vaccine [id number] OSCAR GLOVER [facility] Non-Physician Phone Call To Patient/Provider Brief (5-10min) Non-Physician Phone Call To Patient/Provider Brief (5-10min) [id number] MANJIT BROCK Patient identified with full name and . Advised of UA results probable UTI though Urine Culture has not grown out. Patient is symptomatic with pain, burning and urgency. RX instructions given in detail to include completing entire script even if symptoms go away and encouraged to drink plenty of water . Patient verbalizes understanding without further questions or concerns. [facility] Hepatitis B Vaccine (Active); To 11 Years Hepatitis B Vaccine (Active); [place] To 11 Years [address]858 ENRIQUETA [place] Vitor Hep B, adolescent or pediatric; Series #: 2; .5 mL; IM; Left Arm; Mfg: [employer]; Lot: [id number]; VIS given ([place]amrata: 10/18/2015). [facility] Vaccines Viral Polio, Inactivated Vaccines Viral Polio, Inactivated 81550 DREAD ENRIQUETA Vitor IPV; Series #: 1; .5 mL; SC; Right Arm; Mfg: Sanofi Pasteur; Lot: [id number]; VIS given ([place]amrata: 10/18/15; 02/02/15 - Multiple). [facility] Vaccines Viral Varicella (Active) Vaccines Viral Varicella (Active) 42260 DREAD ENRIQUETA Adler Varicella; Series #: 2; .5 mL; SC; Left Arm; Mfg: [employer]; Lot: [id number]; VIS given ([place]rata: 05/12/2017). [facility] Immunization Administration By Injection, One Vaccine Immunization Administration By Injection, One Vaccine 51402 ENRIQUETA [place] [facility] Immunization Administration By Injection, Each Additional Vaccine Immunization Administration By Injection, Each Additional Vaccine 22221 ENRIQUETA [place]DA [facility] Patient education, not otherwise cla ified, non-physician provider, group, per se ion RAAD MACHADO [facility] Threshold Audiogram (Pure Tone) Threshold Audiogram (Pure Tone) 44951 AVANI CLARKE [facility] Testing Audiometry Group Testing [id number] 018 AVANI CLARKE Physician Supervised Injection Intramuscular Antibiotic Physician Supervised Injection Intramuscular Antibiotic 87712 COLTON JUNIOR [facility] Injection, penicillin g benzathine, 100,000 units COLTON JUNIOR Vaccines Adenovirus Type 4 Live, For Oral Use Vaccines Adenovirus Type 4 Live, For Oral Use [id number] 018 COLTON JUNIOR Vaccines Adenovirus Type 7 Live, For Oral Use Vaccines Adenovirus Type 7 Live, For Oral Use 80208 018 SANDI, COLTON L DoD Immunization Admin Intranasal / Oral Each Additional Vaccine Immunization Admin Intranasal / Oral Each Additional Vaccine [id number] 018 COLTON JUNIOR [facility] Immunization Administration By Injection, One Vaccine Immunization Administration By Injection, One Vaccine 76956 018 COLTNO JUNIOR [facility] Immunization Administration By Injection, Each Additional Vaccine Immunization Administration By Injection, Each Additional Vaccine [id number] 018 COLTON JUNIOR DoD Hepatitis B Vaccine (Active); Dewitt To 11 Years Hepatitis B Vaccine (Active); To 11 Years 52284 018 COLTON JUNIOR Hep B, adolescent or pediatric; Series #: 1; .5 mL; IM; Left Arm; Mfg: [employer]; Lot: [id number]; VIS given (Anmrata: 10/18/2015). [facility] Vaccines Viral Varicella (Active) Vaccines Viral Varicella (Active) 42508 018 COLTON JUNIOR Varicella; Series #: 1; .5 mL; SC; Left Arm; Mfg: [employer]; Lot: [id number]; VIS given (Namrata: 05/12/2017). [facility] Tdap Vaccine Tdap Vaccine 86729 018 COLTON JUNIOR Tdap; Series #: 1; .5 mL; IM; Right Arm; Mfg: [employer]; Lot: [id number]; VIS given (Namrata: 05/24/14). [facility] Meningococcal Vaccine B Recombinant Lipoprotein Meningococcal Vaccine B Recombinant Lipoprotein 23314 COLTON JUNIOR Meningococcal B, Recombinant; Series #: 1; .5 mL; IM; Left Arm; Mfg: Other; Lot: [id number]; VIS given (Namrata: 11/07/2015). [facility] Visual Function Screening Visual Function Screening 70780 018 CRISTIN DARBY DoD Vaccine SARS-CoV-2 mRNA-LNP Bib Protein Preservative Free 30mcg/0.3mL Diluent Reconstituted IM Vaccine SARS-CoV-2 mRNA-LNP Bib Protein Preservative Free 30mcg/0.3mL [place] [address] LORENA STEVENS COVID-19 Pfizer; Series #: 2; 0.3 mL; IM; Left Arm; Mfg: [employer]; Lot: [id number]. DoD Immunization Administration By Injection, One Vaccine Immunization Administration By Injection, One Vaccine 29373 LORENA STEVENS [facility] Patient education, not otherwise cla ified, non-physician provider, individual, per se EDILIA Murillo [facility] Threshold Audiogram (Pure Tone) Automated Threshold Audiogram (Pure Tone) Automated 0208T EDILIA CASTAÑEDA [facility] Measuremt Post-Voiding Resid Urine, Bladder Capacity Ultrasd Measuremt Post-Voiding Resid Urine, Bladder Capacity Ultrasd 42138 CHUCKY GREENE [facility] Automated Urinalysis Without Microscopic Exam Automated Urinalysis Without Microscopic Exam 44249 CHUCKY GREENE [facility] Social History Combined list of available smoking, tobacco, and other social history from [facility] and [facility] facilities. Social History Type Response Date Comment Sourc e Female 08/16/2021 Ambulatory Pha rmacy Sexual Orientation Ambula tory Pharmacy Gender identity Ambulator y Pharmacy This section is an empty soc ial history section. DoD Assessment and Plan Combined list of future care activities from [facility] of Defense and Veterans Affairs facilities (e.g., assessment and plan notes, appointments, orders, and referrals). Additional future care activities may be listed in the Plan of Care section. 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 dist rx only- can wear at any distance Ocular health unremarkable unless otherwise noted below. DFE deferred. Educated patient on the importance of DFE and instructed patient to return as soon as possible to have it done. ? ? 2.?Hyperopia of bilateral eyes if low power rx not enough can fill near wear/bring to dfe for after visit- educ pt will be blurry after gtts- run damp ar 3.?Bilateral regular astigmatism 4.?Headache possible migraine with aura begin glasses also recommend visit pcp for zoloft refill- may be related ? 03/12/2024 Ambulatory Pharmacy Functional Status Combined list of recent functional and cognitive assessments recorded at [facility] ([facility] Functional Spearman Measurement (FIM) Scale: 1 = Total Assistance (Subject = 0% +), 2 = Maximal Assistance (Subject = 25% +), 3 = Moderate Assistance (Subject = 50% +), 4 = Minimal Assistance (Subject = 75% +), 5 = Supervision, 6 = Modified Spearman (Device), 7 = Complete Spearman (Timely, Safely). Assessment Date/Time Source Assessment Type Assessment Skill Assessment Score Assessment Details No data available for this section
--- NOTE | 2024-03-12 14:50 | AM.OFFWIN_ITS ---
Intake Vital Signs 03/12/24 14:55 Weight 140 lb BP 108/64 Blood Pressure Location Rt brachial Position Sitting Pulse 97 Pulse Source Pulse Oximeter Temp 98.3 F Temp Source Oral Pulse Oximetry (%) 98 Oxygen Delivery Method Room Air Intake Visit Reasons: EP-whole body skin itching Intake Note: Patient here for rash/itching all over body that has a burning sensation and has been present for about 2 months. Patient Tobacco Use Status: Never used Tobacco Allergies No Known Allergies Allergy (Verified 03/12/24 14:56) Do you need a note to return to daycare/school/sports/work: No HPI HPI Comments History of Present Illness Details This is a 23-year-old female with a past medical history of PCOS and depression presenting for evaluation of itching that effects her ?whole-body? for the past 2 months. Patient states that she does not have itching on the palms of her hands, soles of her feet or face however describes an itching sensation on all other parts of her body. Patient states that she lives at home with her boyfriend who does not have any similar symptoms. Patient has not taken any avpq-drd-ewexbcp medication for treatment of her symptoms however has used Cetaphil lotion. Patient denies having any new foods, detergents, soaps, pets, chemical exposures and is not taking any new prescription medications. Patient describes the sensation as a burning and itching sensation. [facility] Medical History PCOS (polycystic ovarian syndrome) Hair thinning Anxiety with depression ADHD Persistent depressive disorder with anxious distress, currently moderate Acne vulgaris History of hemorrhoids Family history of thyroid cancer Family History Mother Acquired hypothyroidism Mental health disorder Mother No problems noted. Maternal Grandmother Thyroid cancer Breast cancer Maternal Grandfather Essential hypertension Coronary artery arteriosclerosis Diabetes mellitus Brother Rheumatoid arthritis Social History Housing: Apartment Patient Tobacco Use Status: Never used Tobacco e-Cigarette/Vaping Use: Currently Using service: Yes Current occupational status: employed Cognitive needs: No Hearing needs: No Vision needs: Yes Review of Systems Const All systems reviewed & are unremarkable except as noted in HPI and below Eyes Reports no additional complaints ENT Reports no additional complaints Card Reports no additional complaints Resp Reports no additional complaints GI Reports no additional complaints Reports no additional complaints Musc Reports no additional complaints Skin/Breast Reports pruritus and Denies rash Neuro Reports no additional complaints Psych Reports no additional complaints Endo Reports no additional complaints Will/Lymph Reports no additional complaints Aller/Immun Reports no additional complaints Physical Exam Const General: cooperative, healthy appearing, comfortable, no acute distress, well developed, alert, awake and Physically active Nutritional Appearance: average body habitus Orientation/consciousness: patient oriented x3 Limitations: no limitations HEENT Head: Yes normal to inspection and Yes normocephalic Ears: hearing grossly normal bilaterally General nose exam: Normal external nose present Face and sinus: Yes normal facial exam Mouth: Normal oral and palatal mucosa present (no intraoral lesions noted) and moist mucous membranes Skin General skin exam: no rashes or lesions noted, skin not dry, no ecchymosis, no erythema, Excoriation (manual excoriations noted anterior chest wall and abdomen), no jaundice and no purpura Lesions: no lesions Rashes: no rashes Wounds: no wounds Hair: normal Neuro General: patient oriented x3 Psych Appearance: grossly normal Mental Status: mental status grossly normal Insight: Good insight present (Psych) Judgement: Good judgement present (Psych) Assessment & Plan Assessment & Plan (1) Pruritus: Comment: There is no rash or other lesions that may be consistent with scabies or bedbugs and the patient's partner has no similar symptoms. Code(s): L29.9 - Pruritus, unspecified Plan: Patient will use OTC histamine blockers such as loratadine or cetirizine once daily for the next 2 weeks. Additionally, she will discontinue the Cetaphil lotion and use Aquaphor or Aveeno lotion for relief of her symptoms. Patient will follow up with her primary care provider within 2-4 weeks if her symptoms have not improved. Coding Level of Care Code Est Pt Level 3 (04518) Diagnoses Pruritus L29.9 Time Spent (min) 20
[2024-03-12 14:55] VITALS: BP 108/64; PULSE 97; TEMP 36.8; O2SAT 98
== END 2024-03-12 15:16 | disposition home or self-care (01) ==
PROVIDERS: PCP Internal Medicine; Visit Provider Physician Assistant
DX: L29.9 Pruritus, unspecified (principal)

== ENCOUNTER → 2024-03-12 14:44 | Outpatient (BNVA) | payer OTHER, SELFPAY | PROVIDERS: PCP Internal Medicine; Visit Provider Physician Assistant | DX: L29.9 Pruritus, unspecified (principal) | CPT/HCPCS: 99212 ==

== ENCOUNTER 2024-04-23 13:14 | Outpatient (AMB) | payer OTHER, SELFPAY ==
--- NOTE | 2024-04-23 13:20 | AM.OFFWIN_ITS ---
Intake Vital Signs 04/23/24 13:27 Weight 64.41 kg BP 110/68 Blood Pressure Location Rt brachial Position Sitting Pulse 95 Pulse Source Pulse Oximeter Pulse Oximetry (%) 98 Oxygen Delivery Method Room Air Intake Visit Reasons: EP ? UTI Intake Note: Patient here for frequent urination, irriation slight burning that started 3 days ago. Patient Tobacco Use Status: Never used Tobacco Allergies No Known Allergies Allergy (Verified 04/23/24 13:27) Do you need a note to return to daycare/school/sports/work: No HPI HPI Comments History of Present Illness Details 23 year old female presents w/ urinary f requency, urgency and dysuria X 3 days. Feels like her typical UTI. No concerns for STDs or . No fevers, chills, cp, sob, abd pain, flank pain PE benign Concerns for UTI vs cystitis. No signs of systemic illness, pyelo Plan- UA UA negative .Will tx symptomatically PFSH Medical History PCOS (polycystic ovarian syndrome) Hair thinning Anxiety with depression ADHD Persistent depressive disorder with anxious distress, currently moderate Acne vulgaris History of hemorrhoids Family history of thyroid cancer Family History Mother Acquired hypothyroidism Mental health disorder Mother No problems noted. Maternal Grandmother Thyroid cancer Breast cancer Maternal Grandfather Essential hypertension Coronary artery arteriosclerosis Diabetes mellitus Brother Rheumatoid arthritis Social History Housing: Apartment Patient Tobacco Use Status: Never used Tobacco e-Cigarette/Vaping Use: Currently Using service: Yes Current occupational status: employed Cognitive needs: No Hearing needs: No Vision needs: Yes Review of Systems Const All systems reviewed & are unremarkable except as noted in HPI and below Physical Exam Vital Signs: Last Vital Signs Pulse 95 04/23/24 13:27 BP 110/68 04/23/24 13:27 Pulse Ox 98 04/23/24 13:27 Oxygen Delivery Method Room Air 04/23/24 13:27 vss Appearance: Alert.? Oriented X3.? No acute distress.? Head: Normocephalic, atraumatic, no step-offs or deformities Eyes: Pupils equal, round and reactive to light.? CVS: Normal heart rate and rhythm.? Pulses normal.? Respiratory: No respiratory distress.? Breath sounds normal.? Abdomen: Soft and nontender.? Skin: Skin warm and dry.? Normal skin color.? Normal skin turgor.? Extremities: No lower extremity edema.? No calf ttp. 5/5 strength to bilateral upper and lower extremities Back: No midline tenderness, no C-spine tenderness, full range of motion, no CVA tenderness bilaterally Neuro: Oriented X 3.? No motor deficit.? No sensory deficit. CN 2-12 intact Results AMB Urinalysis, Automated UA Leukoctes 0 Louann/uL Last Edit by Marlyn Chappell [facility] on 04/23/24 13:55 UA Nitrite Negative Last Edit by RosalvaNaomie Chappell [facility] on 04/23/24 13:55 UA Urobilinogen 0.2 mg/dL Last Edit by RosalvaNaomie Chappell [facility] on 04/23/24 13:55 UA Protein 0 mg/dL Last Edit by RosalvaNaomie Chappell [facility] on 04/23/24 13:55 UA pH 6.0 Last Edit by [facility] on 04/23/24 13:55 UA Blood 0 Peewee/uL Last Edit by [facility] on 04/23/24 13:55 UA Specific [place] 1.025 Last Edit by [facility] on 04/23/24 13:55 UA Ketone Negative Last Edit by [facility] on 04/23/24 13:55 UA Bilirubin 0 mg/dL Last Edit by [facility] [place] on 04/23/24 13:55 UA Glucose 0 mg/dL Last Edit by [facility] on 04/23/24 13:55 Assessment & Plan Assessment & Plan (1) UTI (urinary tract infection): Code(s): N39.0 - Urinary tract infection, site not specified Plan Take your medications as prescribed. If you were prescribed antibiotics today, it is important that you take your medication to their entirety, do not skip any doses, do not finish them early. Follow-up with your primary care provider this week. Return to the emergency department with new or worsening symptoms. In case of emergency call 911 Orders: Orders AMB Urinalysis Automated Today Z13.9 - Encounter for screening, unspecified Medications: New nitrofurantoin monohyd/m-cryst 100 mg (Macrobid) must administer with a meal/food 100 mg PO BID 10 caps 0RF 5 days Coding Level of Care Code Est Pt Level 3 (35914) Diagnoses UTI (urinary tract infection) N39.0
[2024-04-23 13:27] VITALS: BP 110/68; PULSE 95; O2SAT 98
--- OUTSIDE RECORDS SUMMARY | 2024-04-23 14:59 | XMS_ITS | Continuity of Care Document ---
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 BOTTLE Active [id number] 4 2023 30 Pharmac y Data Transac tion Service Facilit y CEPHALEXIN (CEPHALEXIN MONOHYDRATE ), 500MG, CAPSULE, ORAL, LUPIN PHARMACEU, 500 ea. BOTTLE Active [id number] 2023 14 Pharmac y Data Transac tion Service Facilit y FLUCONAZOLE (fluconazol e), 150 MG, TABLET, ORAL, ZYDUS PHARMACEU, 12 ea. BLIST PACK Active [id number] 2023 2 Pharmac y Data Transac tion Service Facilit y METRONIDAZO LE (METRONIDAZ OLE), 500MG, TABLET, ORAL, PLIVA, INC, 100 ea. BOTTLE Active [id number] 4 2023 14 Pharmac y Data Transac tion Service Facilit y EPHRAIM (ethinyl estradiol/d rospirenone ), 0.02-3(28), TABLET, ORAL, LUPIN PHARMACEU, 28 ea. BLIST PACK Active [id number] 4 2023 84 Pharmac y Data Transac tion Service Facilit y Nitrofurant oin ([employer]igen [employer] s[employer]) 100 CAPSULE in 1 BOTTLE Active [id number] 2023 20 Pharmac y Data Transac [...] # 90 tab(s), 3 total refill(s ), Estiven coe, Pharmacy : [facility] Oral (given by mouth) Ordered 90.0 0124R-O PFORCES [facility] Allergies, Adverse Reactions, Alerts Combined list of allergies from Department of Defense and Veterans Affairs facilities. It does not include entries that were removed or entered in error. Substance Category Reaction Severity Reaction type Status Date Reported Comments Source No Known Allergies Drug allergy (disorder) active 12/05/2017 [facility] Immunizations Combined list of available immunizations from the Department of Defense and Veterans Affairs facilities. Immunization Series Date Given Administered By Site Reaction Lot Number CVX Code Drug Database Developer Status Comments Source influenza, injectable, quadrivalent, contains preservative 0 2021 [id number] Sanofi Pasteur ([facility]) complet ed influenza , injectabl e, quadrival ent, contains preservat horace [facility] influenza, injectable, quadrivalent 2020 [id number] 158 Seqirus complet ed influenza , injectabl e, quadrival ent 01/22/21 Given Ambulat ory Pharmac y influenza, injectable, quadrivalent, contains preservative 0 2020 [id number] 158 Seqirus (SEQ) complet ed influenza , injectabl e, quadrival ent, contains preservat horace DoD anthrax vaccine 2020 [id number] Emergent Biosolutions complet ed anthrax vaccine 11/02/20 Given Ambulat ory Pharmac y anthrax vaccine 2 2020 [id number] Emergent [employer] Ch[place] (MIP) complet ed anthrax vaccine DoD anthrax vaccine 2020 [id number] 24 Emergent Biosolutions complet ed anthrax vaccine 09/27/20 Given Ambulat ory Pharmac y anthrax vaccine 1 2020 [id number] Emergent [employer] Churdan ([facility]) complet ed anthrax vaccine DoD typhoid Vi capsular polysaccharid e vac 2020 [id number] 101 sanofi pasteur complet ed typhoid Vi capsular polysacch aride vac 07/18/20 Given Ambulat ory Pharmac y typhoid Vi capsular polysaccharid e vaccine 1 2020 [id number] 101 Sanofi Pasteur ([facility]) complet ed typhoid Vi capsular polysacch aride vaccine DoD typhoid Vi capsular polysaccharid e vac 2020 T1E14 101 sanofi pasteur complet ed typhoid Vi capsular polysacch aride vac 07/11/20 Given Ambulat ory Pharmac y typhoid Vi capsular polysaccharid e vaccine 1 2020 T1E14 101 Sanofi Pasteur ([facility]) complet ed typhoid Vi capsular polysacch aride vaccine DoD COVID Vaccine Pfizer 2020 Perfecto baugh Arm [id number] PFIZER complet ed COVID Vaccine Pfizer 05/01/20 Given Ambulat ory Pharmac y SARS-COV-2 (COVID-19) vaccine, mRNA, spike protein, LNP, preservative free, 30 mcg/0.3mL dose 2 2020 LORENA STEVENS [id number] Pfizer, Inc (PFR) complet ed SARS-COV- 2 (COVID-19 ) vaccine, mRNA, spike protein, LNP, preservat horace free, 30 mcg/0.3mL dose DoD COVID Vaccine Pfizer 2020 Perfecto baugh Arm [id number] [facility] complet ed COVID Vaccine Pfizer 04/10/20 Given Ambulat ory Pharmac y SARS-COV-2 (COVID-19) vaccine, mRNA, spike protein, LNP, preservative free, 30 mcg/0.3mL dose 1 2020 [place] [id number] 208 Ranku, Inc (PFR) complet ed SARS-COV- 2 (COVID-19 ) vaccine, mRNA, spike protein, LNP, preservat horace free, 30 mcg/0.3mL dose DoD influenza, injectable, quadrivalent 2019 [id number] 158 Seqirus complet ed influenza , injectabl e, quadrival ent 02/03/20 Given Ambulat ory Pharmac y influenza, injectable, quadrivalent, contains preservative 0 2019 [id number] 699 158 Seqirus (SEQ) complet ed influenza , injectabl e, quadrival ent, contains preservat horace DoD influenza, injectable, quadrivalent 2018 [id number] 158 Unknown complet ed influenza , injectabl e, quadrival ent 01/14/19 Given Ambulat ory Pharmac y influenza, injectable, quadrivalent, contains preservative 0 2018 [id number] 982 158 Other (OTH) complet ed influenza , injectabl e, quadrival ent, contains preservat horace DoD hepatitis B pediatric/ado lescent 2018 Perfecto baugh Arm [id number] 08 GlaxoSmithKli ne complet ed hepatitis B pediatric /adolesce nt 05/20/18 Given Ambulat ory Pharmac y hepatitis B vaccine, pediatric or pediatric/ado lescent dosage 3 2018 OSCAR GLOVER [id number] 08 [facility] (SKB) complet ed hepatitis B vaccine, pediatric [...] varicella virus vaccine 2017 zzLef t Arm [id number] 21 Merck & Company Inc complet ed varicella virus vaccine 11/07/17 Given Ambulat ory Pharmac y hepatitis B pediatric/ado lescent 2017 zzLef t Arm [id number] 08 GlaxoSmithKli ne complet ed hepatitis B pediatric /adolesce nt 11/07/17 Given Ambulat ory Pharmac y poliovirus vaccine, inactivated 2017 zzRig ht Arm [id number] 10 sanofi pasteur complet ed polioviru s vaccine, inactivat ed 11/07/17 Given Ambulat ory Pharmac y hepatitis B vaccine, pediatric or pediatric/ado lescent dosage 2 2017 ENRI[place] [id number] 08 [facility] (SKB) complet ed hepatitis B vaccine, pediatric or pediatric /adolesce nt dosage DoD poliovirus vaccine, inactivated 1 2017 [place] [id number] 10 Sanofi Pasteur ([facility]) complet ed polioviru s vaccine, inactivat ed DoD varicella virus vaccine 2 2017 [place] [id number] 21 Merck (MSD) complet ed varicella virus vaccine DoD meningococcal A,C,Y,W-135 (MCV4P) 2017 zzLef t Arm [id number] 114 Unknown complet ed meningoco ccal A,C,Y,W-1 35 (MCV4P) 10/06/17 Given Ambulat ory Pharmac y varicella virus vaccine 2017 zzLef t Arm [id number] 21 Merck & Company Inc complet ed varicella virus vaccine 10/06/17 Given Ambulat ory Pharmac y tetanus, diphtheria, acellular pertu is 2017 zzNanette ht Arm [id number] 115 GlaxoSmithKli ne complet ed tetanus, diphtheri a, acellular pertussis 10/06/17 Given Ambulat ory Pharmac y hepatitis B pediatric/ado lescent 2017 zzLef t Arm [id number] 08 GlaxoSmithKli ne complet ed hepatitis B pediatric /adolesce nt 10/06/17 Given Ambulat ory Pharmac y adenovirus vaccine, live 2017 [id number] 9 143 Unknown complet ed adenoviru s vaccine, live 10/06/17 Given Ambulat ory Pharmac y hepatitis B vaccine, pediatric or pediatric/ado lescent dosage 1 2017 COLTON JUNIOR [id number] 08 SmithKline (SKB) complet ed hepatitis B vaccine, pediatric or pediatric /adolesce nt dosage DoD varicella virus vaccine 1 2017 COLTON JUNIOR [id number] 21 Merck (MSD) complet ed varicella virus vaccine DoD meningococcal polysaccharid e (groups A, C, Y and W-135) diphtheria toxoid conjugate vaccine (MCV4P) 1 2017 COLTON JUNIOR [id number] 114 Other (OTH) complet ed meningoco ccal [...] 7, live, oral 1 2017 COLTON JUNIOR [id number] 9 143 Other (OTH) complet ed Adenoviru s, type 4 and type 7, live, oral DoD Results Combined list of recent chemistry, hematology and other laboratory results from [facility], ranging from 15 months to all on record, depending upon the facility. Order Name Results Value Reference Range Date Interpretation Specimen Comments Source Chemistry T4 Total 7.70 ug/dL 4.87 - 11.72 07/26 [facility] Chemistry TSH 0.9477 0.3500 - 4.9400 07/26 [facility] Immunology /Serology TPO Ab LC 12 IU/mL 07/26 Result Comment: Performed At: [address] [id number] Julian Neal MD Ph:[phone] [facility] Pharmacy Vital Signs Combined list of inpatient and outpatient Vital Signs from [facility], ranging from 12 months to all on record, depending upon the facility. Vital Sign Value Date Comments Source No data available for this section Ambulatory Pharmacy Encounters Combined list of: 1) Encounters from Department of Optimizely Affairs facilities going back up to thelast 18 months. 2) Encounters from the Department of Defense facilities going back up to 280 months. Location Location Details Encounter Type Encounter Number Reason For Visit Attending Provider ADM Date DC Date Status Disposition Source One or More A Facilitie s IN [employer] History 03/31 One or More A Facilit ies IN FL[employer]W MEMBER [facility](Op tometry [facility] 1523) OUTPATIENT [id number] CRISTIN DARBY 10/03 Released w/o Limitations [facility]( Optomet ry [facility] 1523) [facility](Fe male Screening 1523) OUTPATIENT [id number] ACUTE FRANCIS HAMILTON 10/06 Released w/o Limitations [facility]( Female Screeni ng 1523) [facility](Im munizatio n 1523) OUTPATIENT [id number] Notes Entered by: Kala JUNIOR 06 Oct 2017 1359 ------- ------- ------- ------- -- P4 Immuniz ations SRINIVAS LOVE 10/06 Released w/o Limitations [facility]( Immuniz ation 1523) [facility](Au diology [facility] 1523) OUTPATIENT [id number] AVANI CLARKE 10/16 Released w/o Limitations [facility]( Audiolo gy [facility] 1523) [facility] Female) OUTPATIENT [id number] Notes Entered by: DILAN BARAKAT 29 Oct 2017 1410 ------- ------- ------- ------- -- CLASS RAAD MACHADO 10/29 Released w/o Limitations [facility]( [facility] Female) [facility](Im munizatio n 1523) OUTPATIENT [id number] Notes Entered by: Adelita CANADA 07 Nov 2017 1134 ------- ------- ------- ------- -- 5-2 Immuniz ations IVANKRYSTYNAVitor Gutierrez 11/07 Released w/o Limitations [facility]( Immuniz ation 1523) [facility] [place](July[place] Obstetric s) OUTPATIENT [id number] Notes Entered by: BARRY PINK 13 May 2018 0811 ------- ------- ------- ------- -- [facility]- OCP FRANCIS GARCIA 05/13 Released w/o Limitations [place]July[place] Obst[place] ics) [place] TELE CONSULT [id number] Notes Entered by: ERNST GARCIA 14 May 2018 0728 ------- ------- ------- ------- -- Lab results MANJIT BROCK 05/14 Referred for Appointment [place] ics[place] Immun[place] Clinic) OUTPATIENT [id number] Notes Entered by: NEGRA APPIAH 20 May 2018 0837 ------- ------- ------- ------- -- OSCAR FRANCO 05/20 Released w/o Limitations [place] Immun[place]) [facility] Obstetric [place] TELE CONSULT [id number] Notes Entered by: ERNST GARCIA 21 May 2018 0742 ------- ------- ------- ------- -- LAB RESULTS MANJIT BROCK 05/21 Referred for Appointment [place] Obst[place] ics) [facility] [place](July Preventiv e Medicine) TELE CONSULT [id number] Notes Entered by: JOCELYN MARTINEZ 22 May 2018 0909 ------- ------- ------- ------- -- Beam Racker ing and Educati on JOCELYN MARTINEZ 05/22 Referred for Appointment [place]May Prevent horace Medicin e) [place]May Preventiv [place] Medicine) OUTPATIENT [id number] Notes Entered by: JOCELYN MARTINEZ 25 May 2018 1456 ------- ------- ------- ------- -- Beam Racker ing and Educati on JOCELYN MARTINEZ 05/25 Released w/o Limitations [place] Medic[place] Prevent[place] Medicine[place] OUTPATIENT [id number] Notes Entered by: JOCELYN MARTINEZ 27 May 2018 1528 ------- ------- ------- ------- -- Testing JOCELYN MARTINEZ 05/27 Released w/o Limitations [place] Prevent [place] Medicin [place]) [place] [id number] OVERACT HORACE BLADDER LIAM JOSE 01/15 Released [place]/o Limitations [place] OUTPATIENT [id number] tonsil stones, halitos is LINH TENA 12/27 Released [place]/o Limitations [place] TELE CONSULT [id number] Notes Entered by: NO SHARP 10 Feb 2020 0936 ------- ------- ------- ------- -- COVID TESTING RANDA PALACIOS 02/09 Other Not Elsewhere Classified [place]) OUTPATIENT [id number] preop tonsil dos [id number] DARINEL LINH Armendariz 02/14 Released [place]/o Limitations [place]Pre[place] OUTPATIENT [id number] ent EDDIE KYLE 02/14 Released [place]/o Limitations [place]July [facility] [place]) TELE CONSULT [id number] Notes Entered by: LOUIE MURILLO 25 Feb 2020 0728 ------- ------- ------- ------- -- COVID-1 9 CLINIC #[phone] CYRIL MCKEON 02/24 Other Not Elsewhere Classified [place]July [facility] [place]) [place]Immun[place] OUTPATIENT [id number] Notes Entered by: PHUONG GOMEZ 10 Apr 2020 0946 ------- ------- ------- ------- -- COVID VACCINE #1 [place] 04/10 Released [place] Limitations [place] [facility]) OUTPATIENT [id number] Notes Entered by: MUSA LAWRENCE 19 Apr 2020 0851 ------- ------- ------- ------- -- Problem s with kun pacheco ([facility]) ANA SMITH 04/19 Released w/o Limitations [place] [facility]) [place] OUTPATIENT [id number] COVID 2 COREY AYON 05/01 Released w/o Limitations [place] Immun[place]ion Clinic) [facility] OUTPATIENT [id number] Theater Provider 05/24 Released with Work/Duty Limitations [facility] OUTPATIENT [id number] Theater Provider 09/13 Released w/o Limitations [facility] OUTPATIENT [id number] Theater Provider 10/16 Released w/o Limitations [facility] OUTPATIENT [id number] Theater Provider 11/18 Released with Work/Duty Limitations [facility] OUTPATIENT [id number] Theater Provider 12/01 Released w/o Limitations [facility] OUTPATIENT [id number] Theater Provider 12/12 Released w/o Limitations [facility] OUTPATIENT [id number] Theater Provider 12/26 Released w/o Limitations [facility] OUTPATIENT [id number] Theater Provider 05/22 Released w/o Limitations Theater [facility] y [facility](Cdl Bulk Driver Urogyneco logy [facility]) OUTPATIENT [id number] inconti CHUCKY Roger 08/13 Released w/o Limitations [facility](Cdl Bulk Driver Urogyne cology [facility]) [facility](Hearing Cons Dandre Sta) OUTPATIENT [id number] AILEEN MITCHELL 08/16 Released w/o Limitations [facility](Hea ring Cons Dandre Sta) [facility](Cdl Bulk Driver Urogyneco logy [facility]) TELE CONSULT [id number] Notes Entered by: YULIA CARRENO Y J 21 Aug 2021 1406 ------- ------- ------- ------- -- results CHUCKY GREENE 08/21 [facility](Cdl Bulk Driver Urogyne cology [facility]) [facility](Emergen cy Medicine [facility]) OUTPATIENT [id number] ARLET GASPAR 03/21 Released w/o Limitations [facility](Klaudia rgency Medicin e [facility]) Procedures Combined list of: 1) Procedures from Department of Veterans Affairs facilities going back up to thelast 18 months, not all VA non-surgical procedures are included; 2) All procedures from the Department of Defense facilities. Procedure Procedure Type Code Date Perfomer Comments Sekou e No data available for this section Ambulato ry Pharmacy IMMUNIZATION ADMINISTRATION (INCLUDES PERCUTANEOUS, INTRADERMAL, SUBCUTANEOUS, OR INTRAMUSCULAR INJECTIONS); EACH ADDITIONAL VACCINE (SINGLE OR COMBINATION VACCINE/TOXOID) [facility] PATIENT EDUCATION, NOT OTHERWISE CLASSIFIED, NON-PHYSICIAN PROVIDER, GROUP, PER SESSION [facility] INJECTION, PENICILLIN G BENZATHINE, 100,000 UNITS [facility] VIS FUNCT SCREEN,AUTOMAT/SE SC-AUTOMAT BILAT QUANT DETERM VISUAL ACUITY,OCULAR ALIGN,COLOR VISION,PSEUDOISOC HROMAT PLATES,& FIELD VIS (MAY INC ALL/SOME SCRN DETERM FOR CONTRAST SENSITIV,VIS UND GLARE) [facility] AUDIOMETRIC TESTING OF GROUPS [facility] PURE TONE AUDIOMETRY (THRESHOLD), AUTOMATED; AIR ONLY [facility] URINALYSIS, BY DIP STICK OR TABLET REAGENT FOR BILIRUBIN, GLUCOSE, HEMOGLOBIN, KETONES, LEUKOCYTES, NITRITE, PH, PROTEIN, SPEC GRAVITY, UROBILINOGEN, ANY NUMBER OF CONSTITUENTS; W/O MICRO, AUTOMATED [facility] IMMUNIZATION ADM,INTRAMUSCULAR INJ,SEVERE AC RESPIRATORY SYNDROME CORONAVIR 2 (SARSCOV-2) (CORONAVIR DIS [COVID-19]) VACC,MRNALNP,SPIK E PROT,PRESRV FREE,30 MCG/0.3ML DOS,DILUENT RECONSTITUT;2ND DOSE DoD IMMUNIZATION ADM,INTRAMUSCULAR INJ,SEVERE AC RESPIRATORY SYNDROME CORONAVIR 2 (SARSCOV-2) (CORONAVIR DIS [COVID-19]) VACC,MRNALNP,SPIK E PROT,PRESRV FREE,30 MCG/0.3ML DOS,DILUENT RECONSTITUT;1ST DOSE [facility] UNLISTED SPECIAL SERVICE, PROCEDURE OR REPORT [facility] TELE ASSESS & MGT SRV PROV QUAL NONPHYS HLTH CARE PRO TO EST PAT,PARENT,GUARD NOT ORIG REL ASSESS & MGT SRV PROV W/IN PREV 7 DAYS NOR LEAD ASSESS & MGT SRV/PX W/IN NXT 24 HR/SOON APT;5-10 MIN MED DIS [facility] IMMUNIZATION ADMINISTRATION (INCLUDES PERCUTANEOUS, INTRADERMAL, SUBCUTANEOUS, OR INTRAMUSCULAR INJECTIONS); 1 VACCINE (SINGLE OR COMBINATION VACCINE/TOXOID) [facility] TELE ASSESS & MGT SRV PROV QUAL NONPHYS HLTH CARE PRO TO EST PAT,PARENT,GUARD NOT ORIG REL ASSESS & MGT SRV PROV W/IN PREV 7 DAYS NOR LEAD ASSESS & MGT SRV/PX W/IN NXT 24 HR/SOON APT;5-10 MIN MED DIS [facility] Non-Physician Phone Call To Patient/Provider Brief (5-10min) Non-Physician Phone Call To Patient/Provider Brief (5-10min) [id number] MANJIT BROCK Telephone call to patient, identified [...] or concerns. DoD Hepatitis B Vaccine (Active); Collins To 11 Years Hepatitis B Vaccine (Active); To 11 Years [id number] OSCAR GLOVER Hep B, adolescent or pediatric; Series #: 3; .5 mL; IM; Left Arm; Mfg: Bundlr; Lot: [id number]; VIS given ([place]amrata: 10/18/2015). DoD Immunization Administration By Injection, One Vaccine Immunization Administration By Injection, One Vaccine [id number] OSCAR GLOVER [facility] Non-Physician Phone Call To Patient/Provider Brief (5-10min) Non-Physician Phone Call To Patient/Provider Brief (5-10min) [id number] MANJIT BROCK Patient identified with full name and . Advised of UA results probable UTI though Urine Culture has not grown out. Patient is symptomatic with pain, burning and urgency. RX instructions given in detail to include completing entire script even if symptoms go away and encouraged to drink plenty of water . Patient verbalizes understanding without further questions or concerns. DoD Hepatitis B Vaccine (Active); Collins To 11 Years Hepatitis B Vaccine (Active); To 11 Years [id number] ENRIQUETA [place]NADA Hep B, adolescent or pediatric; Series #: 2; .5 mL; IM; Left Arm; Mfg: Bundlr; Lot: [id number]; VIS given (Namrata: 10/18/2015). [facility] Vaccines Viral Polio, Inactivated Vaccines Viral Polio, Inactivated [id number] [phone] ENRIQUETA [place] IPV; Series #: 1; .5 mL; SC; Right Arm; Mfg: SanChooos Pasteur; Lot: [id number]; VIS given (Namrata: 10/18/15; 02/02/15 - Multiple). [facility] Vaccines Viral Varicella (Active) Vaccines Viral Varicella (Active) 85712 018 [place] Varicella; Series #: 2; .5 mL; SC; Left Arm; Mfg: saperatec; Lot: [id number]; VIS given (Namrata: 05/12/2017). [facility] Immunization Administration By Injection, One Vaccine Immunization Administration By Injection, One Vaccine 22337 018 ENRIQUETA [place]DA [facility] Immunization Administration By Injection, Each Additional Vaccine Immunization Administration By Injection, Each Additional Vaccine [id number] [phone] ENRIQUETA [place]DA [facility] Patient education, not otherwise cla ified, non-physician provider, group, per se ion RAAD MACHADO [facility] Threshold Audiogram (Pure Tone) Threshold Audiogram (Pure Tone) 53998 018 AVANI CLARKE Audiometry Group Testing Audiometry Group Testing 85049 018 AVANI CLARKE Physician Supervised Injection Intramuscular Antibiotic Physician Supervised Injection Intramuscular Antibiotic 62315 018 COLTON JUNIOR [facility] Injection, penicillin g benzathine, 100,000 units 018 COLTON JUNIOR Vaccines Adenovirus Type 4 Live, For Oral Use Vaccines Adenovirus Type 4 Live, For Oral Use 10456 018 COLTON JUNIOR Vaccines Adenovirus Type 7 Live, For Oral Use Vaccines Adenovirus Type 7 Live, For Oral Use 97326 018 COLTON JUNIOR [facility] Immunization Admin Intranasal / Oral Each Additional Vaccine Immunization Admin Intranasal / Oral Each Additional Vaccine 53994 COLTON JUNIOR [facility] Immunization Administration By Injection, One Vaccine Immunization Administration By Injection, One Vaccine 31953 COLTON JUNIOR [facility] Immunization Administration By Injection, Each Additional Vaccine Immunization Administration By Injection, Each Additional Vaccine 10918 COLTON JUNIOR DoD Hepatitis B Vaccine (Active); To 11 Years Hepatitis B Vaccine (Active); To 11 Years 73857 018 COLTON JUNIOR Hep B, adolescent or pediatric; Series #: 1; .5 mL; IM; Left Arm; Mfg: Bundlr; Lot: [id number]; VIS given (Namrata: 10/18/2015). [facility] Vaccines Viral Varicella (Active) Vaccines Viral Varicella (Active) 36105 COLTON JUNIOR Varicella; Series #: 1; .5 mL; SC; Left Arm; Mfg: Merck; Lot: [id number]; VIS given (Namrata: 05/12/2017). [facility] Tdap Vaccine Tdap Vaccine 29373 COLTON JUNIOR Tdap; Series #: 1; .5 mL; IM; Right Arm; Mfg: Bundlr; Lot: [id number]; VIS given (Namrata: 05/24/14). [facility] Meningococcal Vaccine B Recombinant Lipoprotein Meningococcal Vaccine B Recombinant Lipoprotein 97950 COLTON JUNIOR Meningococcal B, Recombinant; Series #: 1; .5 mL; IM; Left Arm; Mfg: Other; Lot: [id number]; VIS given (Namrata: 11/07/2015). [facility] Visual Function Screening Visual Function Screening [phone] CRISTIN DARBY DoD Vaccine SARS-CoV-2 mRNA-LNP Bib Protein Preservative Free 30mcg/0.3mL Diluent Reconstituted IM Vaccine SARS-CoV-2 mRNA-LNP Bib Protein Preservative Free 30mcg/0.3mL [place] IM [address] LORENA STEVENS COVID-19 Pfizer; Series #: 2; 0.3 mL; IM; Left Arm; Mfg: Ranku, Inc; Lot: [id number]. DoD Immunization Administration By Injection, One Vaccine Immunization Administration By Injection, One Vaccine 48573 LORENA STEVENS [facility] Patient education, not otherwise cla ified, non-physician provider, individual, per se EDILIA Murillo [facility] Threshold Audiogram (Pure Tone) Automated Threshold Audiogram (Pure Tone) Automated 0208T EDILIA CASTAÑEDA [facility] Measuremt Post-Voiding Resid Urine, Bladder Capacity Ultrasd Measuremt Post-Voiding Resid Urine, Bladder Capacity Ultrasd 43349 CHUCKY GREENE [facility] Automated Urinalysis Without Microscopic Exam Automated Urinalysis Without Microscopic Exam 99974 CHUCKY GREENE [facility] Social History Combined list of available smoking, tobacco, and other social history from Department of Defense and Veterans Affairs facilities. Social History Type Response Date Comment Sourc e Female 08/16/2021 [facility] Sexual Orientation [facility] Gender identity [facility] This section is an empty soc ial history section. [facility] Assessment and Plan Combined list of future care activities from [facility] facilities (e.g., assessment and plan notes, appointments, orders, and referrals). Additional future care activities may be listed in the Plan of Care section. Result Assessment and Plan Date Source Assessment and Plan Extracted from:Title : Eye Exam Undilated Author: EVGENY PARK, OD Date: 02/06/23 1.?EXAM/ASSESSMENT, OCCUPATIONAL, X [employer] PERIODIC HEALTH ASSESSMENT (PHA) SRx?provided, glasses ordered. [...] for zoloft refill- may be related ? 04/23/2024 [facility] Functional Status Combined list of recent functional and cognitive assessments recorded at [facility] Functional [place] Measurement (FIM) Scale: 1 = Total Assistance (Subject = 0% +), 2 = Maximal Assistance (Subject = 25% +), 3 = Moderate Assistance (Subject = 50% +), 4 = Minimal Assistance (Subject = 75% +), 5 = Supervision, 6 = Modified [place] (Device), 7 = Complete [place] (Timely, Safely). Assessment Date/Time Source Assessment Type Assessment Skill Assessment Score Assessment Details No data available for this section
== END 2024-04-23 14:16 | disposition home or self-care (01) ==
PROVIDERS: PCP Internal Medicine; Visit Provider Physician Assistant
DX: N39.0 Urinary tract infection, site not specified (principal); R35.0 Frequency of micturition

== ENCOUNTER → 2024-04-23 13:14 | Outpatient (BNVA) | payer OTHER, SELFPAY | PROVIDERS: PCP Internal Medicine; Visit Provider Physician Assistant | DX: N39.0 Urinary tract infection, site not specified (principal) | CPT/HCPCS: 81003; 99212 ==

== ENCOUNTER 2024-05-18 09:51 | Outpatient (AMB) | payer OTHER, SELFPAY ==
--- OUTSIDE RECORDS SUMMARY | 2024-05-18 10:35 | XMS_ITS | Continuity of Care Document ---
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 BOTTLE Active [id number] 4 2023 30 Pharmac y Data Transac tion Service Facilit y CEPHALEXIN (CEPHALEXIN MONOHYDRATE ), 500MG, CAPSULE, ORAL, LUPIN PHARMACEU, 500 ea. BOTTLE Active [id number] 4 2023 14 Pharmac y Data Transac tion Service Facilit y FLUCONAZOLE (fluconazol e), 150 MG, TABLET, ORAL, ZYDUS PHARMACEU, 12 ea. BLIST PACK Active [id number] 2023 2 Pharmac y Data Transac tion Service Facilit y METRONIDAZO LE (METRONIDAZ OLE), 500MG, TABLET, ORAL, PLIVA[employer] INC, 100 ea. BOTTLE Active [id number] 4 2023 14 Pharmac y Data Transac tion Service Facilit y EPHRAIM (ethinyl estradiol/d rospirenone ), 0.02-3(28), TABLET, ORAL, LUPIN PHARMACEU, 28 ea. BLIST PACK Active [id number] 4 2023 84 Pharmac y Data Transac tion Service Facilit y Nitrofurant oin (TrigQuisk LaboratorFotoup s, Monitor) 100 CAPSULE in 1 BOTTLE Active [id number] 4 2023 20 Pharmac y Data Transac [...] 90 tab(s), 3 total refill(s ), [facility], Pharmacy : [facility] Oral (given by mouth) Ordered 90.0 0124R-O [facility] Allergies, Adverse Reactions, Alerts Combined list of allergies from Department of Defense and Veterans Affairs facilities. It does not include entries that were removed or entered in error. Substance Category Reaction Severity Reaction type Status Date Reported Comments Source No Known Allergies Drug allergy (disorder) active 12/05/2017 [facility] Immunizations Combined list of available immunizations from the Department of Defense and Veterans Affairs facilities. 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 Blower Operator Status Comments Source influenza, injectable, quadrivalent, contains preservative 0 2021 [id number] Sanofi Pasteur ([facility]) complet ed influenza , injectabl e, quadrival ent, contains preservat horace DoD influenza, injectable, quadrivalent 2020 [id number] 158 Seqirus complet ed influenza , injectabl e, quadrival ent 01/22/21 Given Ambulat ory Pharmac y influenza, injectable, quadrivalent, contains preservative 0 2020 [id number] 158 Seqirus (SEQ) complet ed influenza , injectabl e, quadrival ent, contains preservat horace DoD anthrax vaccine 2020 [id number] Emergent Biosolutions complet ed anthrax vaccine 11/02/20 Given Ambulat ory Pharmac y anthrax vaccine 2 2020 [id number] [employer]gent [employer] [place] (MIP) complet ed anthrax vaccine DoD anthrax vaccine 2020 [id number] [employer] complet ed anthrax vaccine 09/27/20 Given Ambulat ory Pharmac y anthrax vaccine 1 2020 [id number] [employer] Ricardo (MIP) complet [...] COVID Vaccine Pfizer 2020 Perfecto baugh Arm [id number] PFIZER complet ed COVID Vaccine Pfizer 05/01/20 Given Ambulat ory Pharmac y SARS-COV-2 (COVID-19) vaccine, mRNA, spike protein, LNP, preservative free, 30 mcg/0.3mL dose 2 2020 LORENA STEVENS [id number] 208 Pfizer, Inc (PFR) complet ed SARS-COV- 2 (COVID-19 ) vaccine, mRNA, spike protein, LNP, preservat horace free, 30 mcg/0.3mL dose DoD COVID Vaccine Pfizer [address] Perfecto baugh Arm [id number] [facility] complet ed COVID Vaccine Pfizer 04/10/20 Given Ambulat ory Pharmac y SARS-COV-2 (COVID-19) vaccine, mRNA, spike protein, LNP, preservative free, 30 mcg/0.3mL dose 1 2020 [place] [id number] 208 AnonymAsk, Inc (PFR) complet ed SARS-COV- 2 (COVID-19 ) vaccine, mRNA, spike protein, LNP, preservat horace free, 30 mcg/0.3mL dose DoD influenza, injectable, quadrivalent 2019 [id number] 699 158 Seqirus complet ed influenza , injectabl e, quadrival ent 02/03/20 Given Ambulat ory Pharmac y influenza, injectable, quadrivalent, contains preservative 0 2019 [id number] 699 158 Seqirus (SEQ) complet ed influenza , injectabl e, quadrival ent, contains preservat horace DoD influenza, injectable, quadrivalent 2018 [id number] 982 158 Unknown complet ed influenza , injectabl e, quadrival ent 01/14/19 Given Ambulat ory Pharmac y influenza, injectable, quadrivalent, contains preservative 0 2018 [id number] 982 158 Other (OTH) complet ed influenza , injectabl e, quadrival ent, contains preservat horace DoD hepatitis B pediatric/ado lescent 2018 Perfecto baugh Arm [id number] 08 GlaxoSmithKli ne complet ed hepatitis B pediatric /adolesce nt 05/20/18 Given Ambulat ory Pharmac y hepatitis B vaccine, pediatric or pediatric/ado lescent dosage 3 2018 OSCAR GLOVER [id number] 08 [facility] (SKB) complet ed hepatitis B vaccine, pediatric [...] varicella virus vaccine 2017 zzLef t Arm [id number] 21 Merck & Company Inc complet ed varicella virus vaccine 11/07/17 Given Ambulat ory Pharmac y hepatitis B pediatric/ado lescent 2017 zzLef t Arm [id number] 08 GlaxoSmithKli ne complet ed hepatitis B pediatric /adolesce nt 11/07/17 Given Ambulat ory Pharmac y poliovirus vaccine, inactivated 2017 zzRig ht Arm [id number] 10 sanofi pasteur complet ed polioviru s vaccine, inactivat ed 11/07/17 Given Ambulat ory Pharmac y hepatitis B vaccine, pediatric or pediatric/ado lescent dosage 2 2017 ENRIQUETA CANADA [id number] 08 SmithMiracleCord (SKB) complet ed hepatitis B vaccine, pediatric or pediatric /adolesce nt dosage DoD poliovirus vaccine, inactivated 1 2017 ENRIQU[place] [id number] 10 Sanofi Pasteur ([facility]) complet ed polioviru s vaccine, inactivat ed DoD varicella virus vaccine 2 2017 ENRIQU[place] [id number] 21 Merck (MSD) complet ed varicella virus vaccine DoD meningococcal A,C,Y,W-135 (MCV4P) 2017 zzLef t Arm [id number] 114 Unknown complet ed meningoco ccal A,C,Y,W-1 35 (MCV4P) 10/06/17 Given Ambulat ory Pharmac y varicella virus vaccine 2017 zzLef t Arm [id number] 21 Merck & Company Inc complet ed [...] ory Pharmac y adenovirus vaccine, live 2017 [id number] 143 Unknown complet ed adenoviru s vaccine, live 10/06/17 Given Ambulat ory Pharmac y hepatitis B vaccine, pediatric or pediatric/ado lescent dosage 1 2017 COLTON JUNIOR [id number] 08 SmithKline (SKB) complet ed hepatitis B vaccine, pediatric or pediatric /adolesce nt dosage DoD varicella virus vaccine 1 2017 COLTON JUNIOR [id number] 21 Merck (MSD) complet ed varicella virus vaccine DoD meningococcal polysaccharid e (groups A, C, Y and W-135) diphtheria toxoid conjugate vaccine (MCV4P) 1 2017 COLTON JUNIOR [id number] 114 Other (OTH) complet ed meningoco ccal polysacch aride (groups A, C, Y and W-135) diphtheri a toxoid conjugate vaccine (MCV4P) DoD tetanus toxoid, reduced diphtheria toxoid, and acellular pertu is vaccine, adsorbed 2017 COLTON JUNIOR [id number] 115 SmithKline (SKB) complet ed tetanus toxoid, reduced diphtheri a toxoid, and acellular pertussis vaccine, adsorbed DoD Adenovirus, type 4 and type 7, live, oral 1 2017 COLTON JUNIOR [id number] 9 143 Other (OTH) complet ed Adenoviru s, type 4 and type 7, live, oral DoD Results Combined list of recent chemistry, hematology and other laboratory results from Department of Defense and Veterans Affairs, ranging from 15 months to all on record, depending upon the facility. Order Name Results Value Reference Range Date Interpretation Specimen Comments Source Chemistry T4 Total 7.70 ug/dL 4.87 - 11.72 07/[address] [place] [address] Chemistry TSH 0.9477 0.3500 - 4.9400 07/[address] [place] [address] Immunology /Serology TPO Ab LC 12 IU/mL 07/26 Result Comment: Performed At: [address] [id number] Julian Neal MD Ph:[id number] [address] [place] [address] Encounters Combined list of: 1) Encounters from Department of Veterans Affairs facilities going backup to the last 18 months, not all [place] inpatient encounters are included; 2) Encounters from the Department of Defense facilities going backup to 280 months. Location Location Details Encounter Type Encounter Number Reason For Visit Attending Provider ADM Date DC Date Status Disposition Source [facility](Op tometry [facility] 1523) OUTPATIENT [id number] DARBYCRISTIN CARRILLO Vitor 10/03 Released w/o Limitations [facility]( Optomet ry [facility] 1523) [facility](Fe male Screening 1523) OUTPATIENT [id number] ACUTE FRANCIS HAMILTON Karson 10/06 Released w/o Limitations [facility]( Female Screeni ng 1523) [facility](Im munizatio n 1523) OUTPATIENT [id number] Notes Entered by: Kala JUNIOR 06 Oct 2017 1359 ------- ------- ------- ------- -- Immuniz SRINIVAS Rogel 10/06 Released w/o Limitations [facility]( Immuniz ation 1523) [facility](Au diology [facility] 1523) OUTPATIENT [id number] AVANI CLARKE 10/16 Released w/o Limitations [facility]( Audiolo gy [facility] 1523) [facility] Female) OUTPATIENT [id number] Notes Entered by: DILAN BARAKAT R 29 Oct 2017 1410 ------- ------- ------- ------- -- [facility] RAAD MACHADO 10/29 Released w/o Limitations [facility]( [facility] Female) [facility](Im munizatio n 1523) OUTPATIENT [id number] Notes Entered by: Adelita CANADA 07 Nov 2017 1134 ------- ------- ------- ------- -- 5-2 Immuniz atSRINIVAS Connors 11/07 Released w/o Limitations [facility]( Immuniz ation 1523) [facility] [place](July[place] Obstetric s) OUTPATIENT [id number] Notes Entered by: BARRY PINK 13 May 2018 0811 ------- ------- ------- ------- -- [facility] FRANCIS GARCIA 05/13 Released w/o Limitations [place](Julyp [place]t Obstetr ics) [place]July[place] Obstetric [place] TELE CONSULT [id number] Notes Entered by: ERNST GARCIA 14 May 2018 0728 ------- ------- ------- ------- -- Lab results MANJIT BROCK 05/14 Referred for Appointment [place]July[place] Obstetr ics) [facility] [place] [facility] [place] [facility] OUTPATIENT [id number] Notes Entered by: NEGRA APPIAH 20 May 2018 0837 ------- ------- ------- ------- -- OSCAR FRANCO 05/20 Released w/o Limitations [place] Immun[place]ion Clinic) [place] TELE CONSULT [id number] Notes Entered by: ENRST GARCIA 21 May 2018 0742 ------- ------- ------- ------- -- LAB RESULTS MANJIT BROCK 05/21 Referred for Appointment [place] Obstetr ics[place] [facility] [place](July Preventiv e Medicine) TELE CONSULT [id number] Notes Entered by: JOCELYN MARTINEZ 22 May 2018 0909 ------- ------- ------- ------- -- Jacket Changer ing and Educati on JOCELYN MARTINEZ 05/22 Referred for Appointment [place]May Prevent horace Medicin e) [place]) OUTPATIENT [id number] Notes Entered by: JOCELYN MARTINEZ 25 May 2018 1456 ------- ------- ------- ------- -- Jacket Changer ing and Educati on JOCELYN MARTINEZ 05/25 Released w/o Limitations [place] Prevent horace Medicin [place] OUTPATIENT [id number] Notes Entered by: JOCELYN MARTINEZ 27 May 2018 1528 ------- ------- ------- ------- -- Testing JOCELYN MARTINEZ 05/27 Released w/o Limitations [place]May Prevent horace Medicin e[place]Urolog [place]) OUTPATIENT [id number] OVERACT HORACE BLADDER LIAM JOSE 01/15 Released [place]/o Limitations [place]Otor[place]olaryng[place] logy[place] OUTPATIENT [id number] tonsil stones, halitos is LINH TENA 12/27 Released [place]/o Limitations [place]) TELE CONSULT [id number] Notes Entered by: NO SAHRP 10 Feb 2020 0936 ------- ------- ------- ------- -- COVID TESTING RANDA PALACIOS 02/09 Other Not Elsewhere Classified [place]July [facility]) [facility] [place]) OUTPATIENT [id number] preop tonsil dos [id number] MELZERLINH Kala 02/14 Released w/o Limitations [place]olog [place]Pre[place] OUTPATIENT [id number] elsa EDDIE KYLE Artem 02/14 Released w/o Limitations [place]Pre[place]) TELE CONSULT [id number] Notes Entered by: LOUIE MURILLO 25 Feb 2020 0728 ------- ------- ------- ------- -- COVID-1 9 CLINIC #[phone] [phone] [id number] CYRIL MCKEON 02/24 Other Not Elsewhere Classified [place]July [facility]) [place]Immun[place] OUTPATIENT [id number] Notes Entered by: PHUONG GOMEZ 10 Apr 2020 0946 ------- ------- ------- ------- -- COVID VACCINE #1 [place] 04/10 Released [place]/o Limitations [place] Clinic[place] [facility]) OUTPATIENT [id number] Notes Entered by: MUSA LAWRENCE 19 Apr 2020 0851 ------- ------- ------- ------- -- Problem s with kun pacheco ([facility]) ANA SMITH 04/19 Released w/o Limitations [place]July [facility]) [place] Immuniz[place] Clinic) OUTPATIENT [id number] COVID 2 COREY AYON 05/01 Released w/o Limitations [place]July Immuniz ation [facility]) [facility] Facility OUTPATIENT [id number] Theater Provider 05/24 Released with Work/Duty Limitations Theater Facilit [facility] OUTPATIENT [id number] Theater Provider 09/13 Released w/o Limitations [facility] OUTPATIENT [id number] Theater Provider 10/16 Released w/o Limitations Theater [facility] OUTPATIENT [id number] Theater Provider 11/18 Released with Work/Duty Limitations [facility] OUTPATIENT [id number] Theater Provider 12/01 Released w/o Limitations [facility] OUTPATIENT [id number] Theater Provider 12/12 Released w/o Limitations Theater [facility] OUTPATIENT [id number] Theater Provider 12/26 Released w/o Limitations Theater [facility] OUTPATIENT [id number] Theater Provider 05/22 Released w/o Limitations Theater Facilit y [facility](Emergency Detail Driver Urogyneco logy [facility]) OUTPATIENT [id number] inconti CHUCKY Roger 08/13 Released w/o Limitations [facility](Emergency Detail Driver Urogyne cology [facility]) [facility](Hearing Cons Dandre Sta) OUTPATIENT [id number] AILEEN MITCHELL 08/16 [facility]ased w/o Limitations [facility](Hea ring Cons Dandre Sta) [facility](Emergency Detail Driver Urogyneco logy [facility]) TELE CONSULT [id number] Notes Entered by: YULIA CARRENO Y J 21 Aug 2021 1406 ------- ------- ------- ------- -- results CHUCKY GREENE 08/21 [facility](Emergency Detail Driver Urogyne cology [facility]) [facility](Emergen cy Medicine [facility]) OUTPATIENT [id number] ARLET GASPAR 03/21 Released w/o Limitations [facility](Klaudia rgency Medicin e [facility]) Procedures Combined list of: 1) Procedures from Department of Veterans Affairs facilities going back up to [facility] 18 months, not all VA non-surgical procedures are included; 2) All procedures from the Department of Defense facilities. Procedure Procedure Type Code Date Perfomer Comments Sour e No data available for this section Ambulato ry Pharmacy Non-Physician Phone Call To Patient/Provider Brief (5-10min) Non-Physician Phone Call To Patient/Provider Brief (5-10min) [id number] MANJIT BROCK Telephone call to patient, identified [...] or concerns. DoD Hepatitis B Vaccine (Active); [place] To 11 Years Hepatitis B Vaccine (Active); [place] To 11 Years 20826 [id number] OSCAR GLOVER Hep B, adolescent or pediatric; Series #: 3; .5 mL; IM; Left Arm; Mfg: Genlot; Lot: [id number]; VIS given ([place]: 10/18/2015). DoD Immunization Administration By Injection, One Vaccine Immunization Administration By Injection, One Vaccine [id number] OSCAR GLOVER [facility] Non-Physician Phone Call To Patient/Provider Brief (5-10min) Non-Physician Phone Call To Patient/Provider Brief (5-10min) [id number] MANJIT BROCK Patient identified with full name [...] or concerns. DoD Hepatitis B Vaccine (Active); [place] To 11 Years Hepatitis B Vaccine (Active); [place] To 11 Years 54755 018 ENRIQUETA CANADA Hep B, adolescent or pediatric; Series #: 2; .5 mL; IM; Left Arm; Mfg: SmithMen Rockine; Lot: [id number]; VIS given (Namrata: 10/18/2015). DoD Vaccines Viral Polio, Inactivated Vaccines Viral Polio, Inactivated 50412 018 ENRIQUETA [place]NA[place] IPV; Series #: 1; .5 mL; SC; Right Arm; Mfg: Sanofi Pasteur; Lot: [id number]; VIS given ([place]amrata: 10/18/15; 02/02/15 - Multiple). [facility] Vaccines Viral Varicella (Active) Vaccines Viral Varicella (Active) 41700 018 ENRIQUETA [place] Varicella; Series #: 2; .5 mL; SC; Left Arm; Mfg: Merck; Lot: [id number]; VIS given (Namrata: 05/12/2017). [facility] Immunization Administration By Injection, One Vaccine Immunization Administration By Injection, One Vaccine 18717 018 ENRIQUETA CANADA [facility] Immunization Administration By Injection, Each Additional Vaccine Immunization Administration By Injection, Each Additional Vaccine 64952 018 ENRIQUETA CANADA [facility] Patient education, not otherwise cla ified, non-physician provider, group, per se ion RAAD MACHADO [facility] Threshold Audiogram (Pure Tone) Threshold Audiogram (Pure Tone) 17708 018 AVANI CLARKE [facility] Testing Audiometry Group Testing [id number] 018 AVANI CLARKE Physician Supervised Injection Intramuscular Antibiotic Physician Supervised Injection Intramuscular Antibiotic 51732 018 SANDI COLTON L [employer] Injection, penicillin g benzathine, 100,000 units SANDI, COLTON L [employer] Vaccines Adenovirus Type 4 Live, For Oral Use Vaccines Adenovirus Type 4 Live, For Oral Use 77804 018 SANDI, COLTON L [employer] Vaccines Adenovirus Type 7 Live, For Oral Use Vaccines Adenovirus Type 7 Live, For Oral Use 77107 018 SANDI, COLTON L [employer] Immunization Admin Intranasal / Oral Each Additional Vaccine Immunization Admin Intranasal / Oral Each Additional Vaccine 11066 018 [employer], COLTON L [facility] Immunization Administration By Injection, One Vaccine Immunization Administration By Injection, One Vaccine 80259 018 SANDI, COLTON L [employer] Immunization Administration By Injection, Each Additional Vaccine Immunization Administration By Injection, Each Additional Vaccine 24553 018 [employer], COLTON L [facility] Hepatitis B Vaccine (Active); [place] To 11 Years Hepatitis B Vaccine (Active); To 11 Years 13601 018 COLTON JUNIOR Karson Hep B, adolescent or pediatric; Series #: 1; .5 mL; IM; Left Arm; Mfg: Genlot; Lot: [id number]; VIS given (Namrata: 10/18/2015). [facility] Vaccines Viral Varicella (Active) Vaccines Viral Varicella (Active) 10589 018 COLTON JUNIOR Karson Varicella; Series #: 1; .5 mL; SC; Left Arm; Mfg: Merck; Lot: [id number]; VIS given (Namrata: 05/12/2017). [facility] Tdap Vaccine Tdap Vaccine 60315 018 COLTON JUNIOR Karson Tdap; Series #: 1; .5 mL; IM; Right Arm; Mfg: Genlot; Lot: [id number]; VIS given (Namrata: 05/24/14). [facility] Meningococcal Vaccine B Recombinant Lipoprotein Meningococcal Vaccine B Recombinant Lipoprotein 04103 SANDITAY DavisUS Karson Meningococcal B, Recombinant; Series #: 1; .5 mL; IM; Left Arm; Mfg: Other; Lot: [id number]; VIS given ([place]: 11/07/2015). [facility] Visual Function Screening Visual Function Screening 91752 CRISTIN BRYANT DoD Vaccine SARS-CoV-2 mRNA-LNP Bib Protein Preservative Free 30mcg/0.3mL Diluent Reconstituted IM Vaccine SARS-CoV-2 mRNA-LNP Bib Protein Preservative Free 30mcg/0.3mL [place] [address] LORENA STEVENS COVID-19 Pfizer; Series #: 2; 0.3 mL; IM; Left Arm; Mfg: [employer] Inc; Lot: [id number]. [facility] Immunization Administration By Injection, One Vaccine Immunization Administration By Injection, One Vaccine 86833 LORENA STEVENS [facility] Patient education, not otherwise cla ified, non-physician provider, individual, per se ion EDILIA CASTAÑEDA Threshold Audiogram (Pure Tone) Automated Threshold Audiogram (Pure Tone) Automated 0208T EDILIA CASTAÑEDA Measuremt Post-Voiding Resid Urine, Bladder Capacity Ultrasd Measuremt Post-Voiding Resid Urine, Bladder Capacity Ultrasd 48183 CHUCKY GREENE [facility] Automated Urinalysis Without Microscopic Exam Automated Urinalysis Without Microscopic Exam 86440 CHUCKY GREENE [facility] IMMUNIZATION ADMINISTRATION (INCLUDES PERCUTANEOUS, INTRADERMAL, SUBCUTANEOUS, OR INTRAMUSCULAR INJECTIONS); EACH ADDITIONAL VACCINE (SINGLE OR COMBINATION VACCINE/TOXOID) [facility] PATIENT EDUCATION, NOT OTHERWISE CLASSIFIED, NON-PHYSICIAN PROVIDER, GROUP, PER SESSION [facility] INJECTION, PENICILLIN G BENZATHINE, 100,000 UNITS [facility] VIS FUNCT SCREEN,AUTOMAT/SE VT-AUTOMAT BILAT QUANT DETERM VISUAL ACUITY,OCULAR ALIGN,COLOR VISION,PSEUDOISOC HROMAT PLATES,& FIELD VIS (MAY INC ALL/SOME SCRN DETERM FOR CONTRAST SENSITIV,VIS UND GLARE) [facility] AUDIOMETRIC TESTING OF GROUPS [facility] PURE TONE AUDIOMETRY (THRESHOLD), AUTOMATED; AIR ONLY [facility] URINALYSIS, BY DIP STICK OR TABLET REAGENT FOR BILIRUBIN, GLUCOSE, HEMOGLOBIN, KETONES, LEUKOCYTES, NITRITE, PH, PROTEIN, SPEC GRAVITY, UROBILINOGEN, ANY NUMBER OF CONSTITUENTS; W/O MICRO, AUTOMATED [facility] IMMUNIZATION ADM,INTRAMUSCULAR INJ,SEVERE AC RESPIRATORY SYNDROME CORONAVIR 2 (SARSCOV-2) (CORONAVIR DIS [COVID-19]) VACC,MRNALNP,SPIK E PROT,PRESRV FREE,30 MCG/0.3ML DOS,DILUENT RECONSTITUT;2ND DOSE [facility] IMMUNIZATION ADM,INTRAMUSCULAR INJ,SEVERE AC RESPIRATORY SYNDROME CORONAVIR 2 (SARSCOV-2) (CORONAVIR DIS [COVID-19]) VACC,MRNALNP,SPIK E PROT,PRESRV FREE,30 MCG/0.3ML DOS,DILUENT RECONSTITUT;1ST DOSE [facility] UNLISTED SPECIAL SERVICE, PROCEDURE OR REPORT [facility] TELE ASSESS & MGT SRV PROV QUAL NONPHYS HLTH CARE PRO TO EST PAT,PARENT,GUARD NOT ORIG REL ASSESS & MGT SRV PROV W/IN PREV 7 DAYS NOR LEAD ASSESS & MGT SRV/PX W/IN NXT 24 HR/SOON APT;5-10 MIN MED DIS [facility] IMMUNIZATION ADMINISTRATION (INCLUDES PERCUTANEOUS, INTRADERMAL, SUBCUTANEOUS, OR INTRAMUSCULAR INJECTIONS); 1 VACCINE (SINGLE OR COMBINATION VACCINE/TOXOID) [facility] TELE ASSESS & MGT SRV PROV QUAL NONPHYS HLTH CARE PRO TO EST PAT,PARENT,GUARD NOT ORIG REL ASSESS & MGT SRV PROV W/IN PREV 7 DAYS NOR LEAD ASSESS & MGT SRV/PX W/IN NXT 24 HR/SOON APT;5-10 MIN MED DIS [facility] Social History Combined list of available smoking, tobacco, and other social history from Department of Defense and Veterans Affairs facilities. Social History Type Response Date Comment Sourc e Female 08/16/2021 Ambulatory Pha rmacy Sexual Orientation Ambula tory Pharmacy Gender identity Ambulator y Pharmacy This section is an empty soc ial history section. [facility] Assessment and Plan Combined list of future care activities from Department of Defense and Veterans Affairs facilities (e.g., assessment and plan notes, appointments, orders, and referrals). Additional future care activities may be listed in the Plan of Care section. Result Assessment and Plan Date Source Assessment and Plan Extracted from:Title : Eye Exam Undilated Author: EVGENY PARK, OD Date: 02/06/23 1.?EXAM/ASSESSMENT, OCCUPATIONAL, [employer]IPPER PERIODIC HEALTH ASSESSMENT (PHA) SRx?provided, glasses ordered. [...] for zoloft refill- may be related ? 05/18/[address] [place] [address] Functional Status Combined list of recent functional and cognitive assessments recorded at [employer] ([place] Functional [place] Measurement (FIM) Scale: 1 = Total Assistance (Subject = 0% +), 2 = Maximal Assistance (Subject = 25% +), 3 = Moderate Assistance (Subject = 50% +), 4 = Minimal Assistance (Subject = 75% +), 5 = Supervision, 6 = Modified [place] (Device), 7 = Complete [place] (Timely, Safely). Assessment Date/Time Source Assessment Type Assessment Skill Assessment Score Assessment Details No data available for this section
--- NOTE | 2024-05-18 10:36 | MHC.OFFWIV ---
Intake Vital Signs 05/18/24 10:37 Weight 142 lb BP 122/70 Blood Pressure Location Lt brachial Position Sitting Pulse 109 H Pulse Source Pulse Oximeter Temp 98.3 F Temp Source Oral Pulse Oximetry (%) 99 Oxygen Delivery Method Room Air Intake Visit Reasons: EP severe abdominal pain Intake Note: Patient here for severe abdominal pain/constipation that started this morning. Patient Tobacco Use Status: Never used Tobacco Allergies No Known Allergies Allergy (Verified 05/18/24 10:38) Medication List - Last Reconciled 05/18/24 by Modesto Del Cid MD bupropion HCl XL (Wellbutrin XL) 150 mg PO QAM drospirenone-ethinyl estradiol 3-0.02 mg (Roma (28)) 1 tab PO DAILY Do you need a note to return to daycare/school/sports/work: No HPI EP severe abdominal pain HPI Details Chief Complaint: Abdominal pain History of Present Illness - The patient is a 23-year-old female presenting with abdominal discomfort and constipation. - The onset of symptoms occurred this morning following the consumption of specific foods. - The patient reports feeling constipated, with noted irregularities in bowel movement frequency and consistency. - Typically, bowel movements occur every two to three days, but there is variability. - normally have to strain to pass stools, some days patient have 2 or 3 bowel movements as well - An absence of acute abdominal pain was noted during the examination. - The patient's condition aligns with Irritable Bowel Syndrome (IBS), indicating an irregular bowel pattern and associated symptoms. Plan I determine the patient's symptoms align with Irritable Bowel Syndrome based on her historical bowel habits and recent symptoms. Management includes Senokot-S to support bowel regulation and dietary modifications to enhance fiber intake and hydration. An antispasmodic may be administered for symptomatic relief of cramping. No immediate further investigation is deemed necessary given the absence of acute findings. Patient Instructions - Take Senokot-S, one to two tablets every night as needed. - Increase dietary fiber intake and drink more water. - Use prescribed medication for cramping if it occurs. Dicyclomine - Obtain Senokot-S over the counter if the pharmacy does not provide it. - A work note is available as needed. 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 Maternal Grandmother Thyroid cancer Breast cancer Maternal Grandfather Essential hypertension Coronary artery arteriosclerosis Diabetes mellitus Brother Rheumatoid arthritis Social History Housing: Apartment Patient Tobacco Use Status: Never used Tobacco e-Cigarette/Vaping Use: Currently Using service: Yes Current occupational status: employed Cognitive needs: No Hearing needs: No Vision needs: Yes Physical Exam Vital Signs: Last Vital Signs Temp 98.3 F 05/18/24 10:37 Pulse 109 H 05/18/24 10:37 BP 122/70 05/18/24 10:37 Pulse Ox 99 05/18/24 10:37 Oxygen Delivery Method Room Air 05/18/24 10:37 Const General: no acute distress Orientation/consciousness: patient oriented x3 Eyes General: appearance normal, both eyes and all related structures Resp Effort & Inspection: normal respiratory effort and able to speak in complete sentences GI Other: Abdominal exam is benign Neuro General: patient oriented x3 Psych Mental Status: mental status grossly normal Assessment & Plan Assessment & Plan (1) Constipation by delayed colonic transit: Code(s): K59.01 - Slow transit constipation (2) Irritable bowel: Code(s): K58.9 - Irritable bowel syndrome, unspecified Qualifiers: Irritable bowel syndrome type: with both diarrhea and constipation Qualified Code(s): K58.2 - Mixed irritable bowel syndrome (3) Abdominal cramping: Code(s): R10.9 - Unspecified abdominal pain Plan Chief Complaint: Abdominal pain History of Present Illness - The patient is a 23-year-old female presenting with abdominal discomfort and constipation. - The onset of symptoms occurred this morning following the consumption of specific foods. - The patient reports feeling constipated, with noted irregularities in bowel movement frequency and consistency. - Typically, bowel movements occur every two to three days, but there is variability. - normally have to strain to pass stools, some days patient have 2 or 3 bowel movements as well - An absence of acute abdominal pain was noted during the examination. - The patient's condition aligns with Irritable Bowel Syndrome (IBS), indicating an irregular bowel pattern and associated symptoms. Plan I determine the patient's symptoms align with Irritable Bowel Syndrome based on her historical bowel habits and recent symptoms. Management includes Senokot-S to support bowel regulation and dietary modifications to enhance fiber intake and hydration. An antispasmodic may be administered for symptomatic relief of cramping. No immediate further investigation is deemed necessary given the absence of acute findings. Patient Instructions - Take Senokot-S, one to two tablets every night as needed. - Increase dietary fiber intake and drink more water. - Use prescribed medication for cramping if it occurs. Dicyclomine - Obtain Senokot-S over the counter if the pharmacy does not provide it. - A work note is available as needed. Medications: New sennosides-docusate sodium 8.6-50 mg (Senokot-S) 1 tab-cap PO BEDTIME 90 days 90 tabs 0RF constipation K59.03 - Drug induced constipation, T40.2X5A - Adverse effect of other opioids, initial encounter dicyclomine 20 mg PO BID 30 days PRN 60 tabs 0RF abdominal pain Coding Level of Care Code Est Pt Level 3 (08470) Diagnoses Constipation by delayed colonic transit K59.01 Irritable bowel syndrome with both constipation and diarrhea K58.2 Irritable bowel syndrome type: with both diarrhea and constipation Abdominal cramping R10.9
[2024-05-18 10:37] VITALS: BP 122/70; PULSE 109; TEMP 36.8; O2SAT 99
== END 2024-05-18 10:56 | disposition home or self-care (01) ==
PROVIDERS: PCP Internal Medicine; Visit Provider Internal Medicine
DX: K59.01 Slow transit constipation (principal); K58.2 Mixed irritable bowel syndrome; R10.9 Unspecified abdominal pain

== ENCOUNTER → 2024-05-18 09:51 | Outpatient (BNVA) | payer OTHER, SELFPAY | PROVIDERS: PCP Internal Medicine | DX: K59.01 Slow transit constipation (principal); K58.2 Mixed irritable bowel syndrome; R10.9 Unspecified abdominal pain | CPT/HCPCS: 99212 ==

== ENCOUNTER 2024-06-28 08:01 | Outpatient (REF) | payer OTHER, SELFPAY ==
[2024-06-28 10:45] LABS: Alanine Aminotransferase 13 U/L (0-31); Anion Gap 13 (12-20); Aspartate Amino Transferase 21 U/L (5-31); Blood Urea Nitrogen 11 mg/dL (9-16); Calcium 9.7 mg/dL (8.4-10.2); Carbon Dioxide 24 mmol/L (22-29); Chloride 108 mmol/L (96-108); Cholesterol 236 mg/dL (<200); Estimated Glomerular Filt Rate > 60; Glucose Fasting 60 mg/dL (60-99); HDL Cholesterol 63 mg/dL (>40); LDL Cholesterol Calculated 125 mg/dL (<100); Potassium 4.5 mmol/L (3.3-5.1); Sodium 140 mmol/L (135-145); Triglycerides 244 mg/dL (<150)
[2024-06-28 10:53] LABS: TSH reflex Free T4 0.99 uIU/mL (0.32-4.0)
== END 2024-06-28 08:02 | disposition home or self-care (01) ==
LOC: HO.HMGCLDS 08:01
PROVIDERS: PCP Internal Medicine; Visit Provider Internal Medicine
DX: F41.8 Other specified anxiety disorders (principal); L65.9 Nonscarring hair loss, unspecified; Z13.220 Encounter for screening for lipoid disorders; Z13.1 Encounter for screening for diabetes mellitus; F90.9 Attention-deficit hyperactivity disorder, unspecified type; E28.2 Polycystic ovarian syndrome; K59.01 Slow transit constipation; K58.2 Mixed irritable bowel syndrome; Z80.8 Family history of malignant neoplasm of other organs or systems
CPT/HCPCS: 36415; 80048; 80061; 84443; 84450; 84460

== ENCOUNTER 2024-06-30 09:36 | Outpatient (AMB) | payer OTHER, SELFPAY ==
[2024-06-30 09:48] VITALS: BP 118/70; PULSE 89; O2SAT 98; BMI 26.3
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
--- OUTSIDE RECORDS SUMMARY | 2024-06-30 10:47 | XMS_ITS | Continuity of Care Document ---
Author Name [facility] Organization [facility] Care Team Providers Care [employer] Teacher Name Role Phone [facility] Unavailable Unavailable Problems Combined list of problems from Department of [facility] and [facility] facilities. It does not include entries that were removed or entered in error. Problem Status Onset Date Problem Type Date of Resolution Comments Source Bilateral regular astigmatism Active Condition [facility] [place] Headache Active Condition [facility] [place] Hyperopia of bilateral eyes Active Condition [facility] [place] Medications Combined list of outpatient medications from Department of [facility] and [facility] facilities.Medications provided include 1) outpatient medications from the last 15 months, and 2) patient-reported medications. Medication Details Route Status Patient Instructions Prescription Expires Prescription Number Last Dispense Date Ordering Provider Order Date Order Qty Source sertraline 100 mg oral tablet TAKE ONE TABLET BY MOUTH EVERY DAY, # 90 EA, 3 total refill(s ), Acute Complet ed 12/28/2021 1 2021 90.0 Ambulat ory Pharmac y sertraline 25 mg tablet See dose instruct ions in comments , # 30 EA, 3 total refill(s ), Acute Complet ed 04/12/2023 3 2023 30.0 Ambulat ory Pharmac y Zoloft 25 mg oral tablet 1 tab(s), Oral, Daily, # 90 tab(s), 3 total refill(s ), [facility], Pharmacy : [facility] Oral (given by mouth) Ordered 2022 90.0 [id number] [facility] Immunizations Combined list of available immunizations from the Department of Defense and Veterans Affairs facilities. Immunization Series Date Given Administered By Site Reaction Lot Number CVX Code Drug Draw Operator Status Comments Source influenza, injectable, quadrivalent 2020 [id number] Seqirus complet ed influenza , injectabl e, quadrival ent 01/22/21 Given Ambulat ory Pharmac y anthrax vaccine 2020 [id number] Emergent [employer] complet ed anthrax vaccine 11/02/20 Given Ambulat ory Pharmac y anthrax vaccine 2020 [id number] [employer] complet ed anthrax vaccine 09/27/20 Given Ambulat ory Pharmac y typhoid Vi capsular polysaccharid e vac 2020 [id number] sanofi pasteur complet ed typhoid Vi capsular polysacch aride vac 07/18/20 Given Ambulat ory Pharmac y typhoid Vi capsular polysaccharid e vac 2020 [id number] 101 sanofi pasteur complet ed typhoid Vi capsular polysacch aride vac 07/11/20 Given Ambulat ory Pharmac y COVID Vaccine Pfizer 2020 zzLef t Arm [id number] PFIZER complet ed COVID Vaccine Pfizer 05/01/20 Given Ambulat ory Pharmac y COVID Vaccine Pfizer 2020 zzLef t Arm [id number] PFIZER complet ed COVID Vaccine Pfizer 04/10/20 Given Ambulat ory Pharmac y influenza, injectable, quadrivalent 2019 [id number] 158 Seqirus complet ed influenza , injectabl e, quadrival ent 02/03/20 Given Ambulat ory Pharmac y influenza, injectable, quadrivalent 2018 [id number] 158 Unknown complet ed influenza , injectabl e, quadrival ent 01/14/19 Given Ambulat ory Pharmac y hepatitis B pediatric/ado lescent 2018 zzLef t Arm [id number] GlaxoSmithKli ne complet ed hepatitis B pediatric /adolesce nt 05/20/18 Given Ambulat ory Pharmac y influenza, injectable, quadrivalent 2018 [id number] Unknown complet ed influenza , injectabl e, quadrival ent 05/12/18 Given Ambulat ory Pharmac y varicella virus vaccine 2017 zzLef t Arm [id number] 21 Mer[employer] Inc complet ed varicella virus vaccine 11/07/17 Given Ambulat ory Pharmac y hepatitis B pediatric/ado lescent 2017 zzLef t Arm [id number] 08 GlaxoSmithKli ne complet ed hepatitis B pediatric /adolesce nt 11/07/17 Given Ambulat ory Pharmac y poliovirus vaccine, inactivated 2017 zzRig ht Arm [id number] 10 sanofi pasteur complet ed polioviru s vaccine, inactivat ed 11/07/17 Given Ambulat ory Pharmac y meningococcal A,C,Y,W-135 (MCV4P) 2017 zzLef t Arm [id number] Unknown complet ed meningoco ccal A,C,Y,W-1 35 (MCV4P) 10/06/17 Given Ambulat ory Pharmac y varicella virus vaccine 2017 zzLef t Arm [id number] 21 [employer] complet ed varicella virus vaccine 10/06/17 [...] ory Pharmac y adenovirus vaccine, live 2017 [id number] Unknown complet ed adenoviru s vaccine, live 10/06/17 Given Ambulat ory Pharmac y Results Combined list of recent chemistry, hematology and other laboratory results from Department of Defense and [facility], ranging from 15 months to all on record, depending upon the facility. Order Name Results Value Reference Range Date Interpretation Specimen Comments Source Chemistry T4 Total 7.70 ug/dL 4.87 - 11.72 07/[address] [place] [address] Chemistry TSH 0.9477 0.3500 - 4.9400 07/[address] [place] [address] Immunology /Serology TPO Ab LC 12 IU/mL 07/26 Result Comment: Performed At: [address] [id number] Julian Neal MD Ph:[phone] [address] [place] [address] Procedures Combined list of: 1) Procedures from Department of Veterans Affairs facilities going back up to thelast 18 months, not all VA non-surgical procedures are included; 2) All procedures from the Department of Defense facilities. Procedure Procedure Type Code Date Perfomer Comments Sourc e No data available for this section Ambulatory P harmacy Social History Combined list of available smoking, tobacco, and other social history from [facility] of Defense and [facility] facilities. Social History Type Response Date Comment Sourc e Sex Representation Female (finding) 08/16/2021 Unknown Organization Sexual Orientation Ambula tory Pharmacy Gender identity Ambulator y Pharmacy Assessment and Plan Combined list of future care activities from Department of Defense and Veterans Affairs facilities (e.g., assessment and plan notes, appointments, orders, and referrals). Additional future care activities may be listed in the Plan of Care section. 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 [...] for zoloft refill- may be related ? 06/30/[address] [place] [address] Functional Status Combined list of recent functional and cognitive assessments recorded at Department of Defense and [facility] (VA).VA Functional Reynolds Measurement (FIM) Scale: 1 = Total Assistance (Subject = 0% +), 2 = Maximal Assistance (Subject = 25% +), 3 = Moderate Assistance (Subject = 50% +), 4 = Minimal Assistance (Subject = 75% +), 5 = Supervision, 6 = Modified Reynolds (Device), 7 = Complete Reynolds (Timely, Safely). Assessment Date/Time Source Assessment Type Assessment Skill Assessment Score Assessment Details No data available for this section
== END 2024-06-30 11:02 | disposition home or self-care (01) ==
LOC: HO.HMCC 09:37
PROVIDERS: PCP Internal Medicine; Visit Provider Internal Medicine
DX: Z00.01 Encounter for general adult medical examination with abnormal findings (principal); E78.2 Mixed hyperlipidemia; F41.8 Other specified anxiety disorders; F90.9 Attention-deficit hyperactivity disorder, unspecified type; E28.2 Polycystic ovarian syndrome; J30.89 Other allergic rhinitis

== ENCOUNTER → 2024-06-30 09:36 | Outpatient (BNVA) | payer OTHER, SELFPAY | PROVIDERS: PCP Internal Medicine; Visit Provider Internal Medicine | DX: Z00.01 Encounter for general adult medical examination with abnormal findings (principal); E78.2 Mixed hyperlipidemia; F41.8 Other specified anxiety disorders; F90.9 Attention-deficit hyperactivity disorder, unspecified type; E28.2 Polycystic ovarian syndrome; J30.89 Other allergic rhinitis | CPT/HCPCS: 96127 ==

== ENCOUNTER 2024-09-20 09:54 | Outpatient (AMB) | payer OTHER, SELFPAY ==
[2024-09-20 10:08] VITALS: BP 116/80; PULSE 106; TEMP 37.2; O2SAT 98; BMI 28.0
--- NOTE | 2024-09-20 10:08 | AM.OFFWIN_ITS ---
Intake Vital Signs 09/20/24 10:08 Height 5 ft 2 in Weight 153 lb 6 oz BMI 28.0 BP 116/80 Blood Pressure Location Lt brachial Position Sitting Pulse 106 H Pulse Source Pulse Oximeter Temp 99.0 F Temp Source Oral Pulse Oximetry (%) 98 Oxygen Delivery Method Room Air Intake Visit Reasons: EP-cyst in private area Patient Tobacco Use Status: Never used Tobacco Allergies No Known Allergies Allergy (Verified 09/20/24 10:11) HPI HPI Comments History of Present Illness Details History of Present Illness - The patient is a 24-year-old female pr esenting with swelling and discomfort in the vulvar region. - She noticed a bump near the vulva, ini tially not visible, which later became swollen. - Diagnosed with a urinary tract infecti on and prescribed Bactrim by her OBGYN on Friday. - Swelling increased post initial visit, with whitish discharge noted, not clearly identified as from the cyst. - Swelling located on the right side, de scribed as a cyst or swollen gland. - Previous similar episodes resolved wit h warm compresses, leading to drainage. - She is sexually active. - She has no vaginal discharge, only whe n she pushes on the area. - She denies fever, chlls, dysuria, kim turia, CP, or SOB. Physical Exam General: Cooperative, healthy appearing, comfortable, no acute distress and well developed Respiratory: Normal respiratory effort and able to speak in complete sentences. Clear to auscultation bilaterally Cardiovascular: Regular rate and rhythm. Normal S1 and S2 GI: Normal to inspection. Soft to palpation and nontender, non distended. No guarding or rebound tenderness noted. : No external genitalia swelling or redness noted. No discharge or bleeding at the introitus or in the vaginal canal. TTP of the right Bartholin gland. No discharge noted. No inguinal lymphadenopathy noted. Skin: No rashes or lesions noted. Patient was informed and verbally consented to the use of an ambient scribe for clinic note documentation during this visit. [facility] Medical History (Updated 07/04/24 @ 22:06 by Yarelis Crane MD) History of acne vulgaris Mixed dyslipidemia PCOS (polycystic ovarian syndrome) Hair thinning Anxiety with depression ADHD History of hemorrhoids Family history of thyroid cancer Surgical History (Updated 07/04/24 @ 22:06 by Yarelis Crane MD) No pertinent past surgical history Family History (Updated 06/30/24 @ 10:45 by Yarelis Crane MD) Mother Acquired hypothyroidism Mental health disorder Mother No problems noted. Maternal Grandmother Thyroid cancer Breast cancer Maternal Grandfather Essential hypertension Coronary artery arteriosclerosis Diabetes mellitus Brother Rheumatoid arthritis Paternal Grandmother Diabetes mellitus Paternal Grandfather Diabetes mellitus Lung cancer Social History Housing: Apartment Patient Tobacco Use Status: Never used Tobacco e-Cigarette/Vaping Use: Currently Using service: Yes Current occupational status: employed Cognitive needs: No Hearing needs: No Vision needs: Yes Review of Systems Const All systems reviewed & are unremarkable except as noted in HPI and below Physical Exam Vital Signs: Last Vital Signs Temp 99.0 F 09/20/24 10:08 Pulse 106 H 09/20/24 10:08 BP 116/80 09/20/24 10:08 Pulse Ox 98 09/20/24 10:08 Oxygen Delivery Method Room Air 09/20/24 10:08 BMI result Body Mass Index 28.0 Assessment & Plan Assessment & Plan (1) Cyst of Bartholin gland duct: Code(s): N75.0 - Cyst of Bartholin's gland Plan Most likely a Bartholin's cyst vs abscess Plan - Continue Bactrim for urinary tract infection management. - Advise warm sitz baths with Epsom salt to promote drainage of the possible B artholin's gland cyst. - Avoidance of intercourse to prevent irritation until symptoms resolve. - Monitor for any increase in swelling or signs of infection, such as redness or significant pain. - Referral to [facility] if symptoms persist or worsen for potential catheter drainage. Coding Level of Care Code Est Pt Level 3 (52791) Diagnoses Cyst of Bartholin gland duct N75.0
== END 2024-09-20 10:28 | disposition home or self-care (01) ==
PROVIDERS: PCP Internal Medicine; Visit Provider Physician Assistant Medical
DX: N75.0 Cyst of Bartholin's gland (principal)

== ENCOUNTER → 2024-09-20 09:54 | Outpatient (BNVA) | payer OTHER, SELFPAY | PROVIDERS: PCP Internal Medicine; Visit Provider Physician Assistant Medical | DX: N75.0 Cyst of Bartholin's gland (principal) | CPT/HCPCS: 99212 ==

== ENCOUNTER 2024-11-02 08:11 | Outpatient (AMB) | payer OTHER, SELFPAY ==
--- OUTSIDE RECORDS SUMMARY | 2024-11-02 08:19 | XMS_ITS ---
Author Name [facility] Organization Unknown History of Medication Use Medication Directions Dispensed Refills Start Date End Date Stat us No known medications No known medications active No known medications No known medications active Problems Problem Status Onset Date Problem Type Date of Resoluti on Source Vaginal cyst active EncounterDiagnosisAct [facility] Encounters Encounter Type Encounter Reason Primary Diagnosis Location Date Emergency Cysts,Abcess Other specified noninflammatory disorders of vagina [facility] 09/21/2024 Care Team Organization Name Specialty Phone Email Start Date End Da te [facility] NO PHYSICIAN Primary Care 09/22/2024 [facility] 09/22/2024 [facility] 09/22/2024
--- OUTSIDE RECORDS SUMMARY | 2024-11-02 08:19 | XMS_ITS | Clinical Summary ---
Author Organization [facility] Address [address] [place] [address] Phone Care Team Providers Care Systems Integration Advisor Name Role Phone Physician, No Pcp Primary Care Provider Unavaila ble Allergies No known active allergies Medications No known medications Encounters Date Type Department Care Team Description 09/24/2024 Telephone Gynecologic Oncology - [address] [address] Graciela Whitney MA Referral 09/21/2024 10:16 PM EDT - 09/21/2024 11:34 PM EDT Emergency [facility] [address] [place] [address] Sherrill Mcelroy MD Vaginal cyst (Primary Dx) Discharge Disposition: Home or Self Care from Last 3 Months Surgical History Surgery Date Site/Laterality Comments TONSILLECTOMY Medical History Medical History Date Comments PCOS (polycystic ovarian syndrome) Social History Tobacco Use Types Packs/Day Years Used Date Smoking Tobacco: Former Cigarettes Smokeless Tobacco: Current Tobacco Cessation:Ready to Q uit: Not Asked; Counseling Given: Not Answered Alcohol Use Standard Drinks/Week Comments Yes 0 (1 standard drink = 0.6 oz pur e alcohol) Comments Unknown Sex and Gender Information Value Date Recorded Sex Assigned at Female 09/21/2024 11:25 PM EDT Legal Sex Female 9:22 PM EDT Gender Identity Female 09/21/2024 11:25 PM EDT Sexual Orientation Straight 09/21/2024 11 :25 PM EDT Obstetrics History Last Filed Vital Signs Vital Sign Reading Time Taken Comments Blood Pressure 122/89 09/21/2024 11:33 PM EDT Pulse 83 09/21/2024 11:33 PM EDT Temperature 36.8 C (98.2 F) 09/21/2024 11:33 PM EDT Respiratory Rate 18 09/21/2024 11:33 PM EDT Oxygen Saturation 96% 09/21/2024 11:33 PM EDT Inhaled Oxygen Concentration - - Weight 66.7 kg (147 lb) 09/21/2024 10:07 PM EDT Height 157.5 cm (5' 2 ) 09/21/2024 10:07 PM EDT Body Mass Index 26.89 09/21/2024 10:07 PM EDT Plan of Treatment Health Maintenance Due Date Last Done Comments HPV Vaccines (1 - 3-dose series) 2014 IPV Vaccines (2 of 3 - Adult catch-up series) 12/05/2017 11/07/2017 Cervical Cancer Screening: Pap Smear 2020 COVID-19 Vaccine ( season) 2023 05/01/2020, 04/10/2020 Depression Screening 03/31/2024 Cholesterol Screening (Lipid Panel) 09/22/2024 HIV Screening 09/22/2024 Hepatitis C Screening 09/22/2024 Social Influencers of Health Screening 09/22/2024 Influenza Vaccine (#1) 2024 2, 01/22/2021, 02/03/2020, Additional history exists DTaP,Tdap,and Td Vaccines (2 - Td or Tdap) 10/07/2027 10/06/2017 Meningococcal ACWY Vaccine Completed 10/06/2017 Varicella Vaccines Completed 11/07/2017, 10/06/2017 Hepatitis B Vaccines Completed 05/20/2018, 11/07/2017, 10/06/2017 HIB Vaccines Aged Out No longer eligi ble based on patient's age to complete this topic Hepatitis A Vaccines Aged Out No long er eligible based on patient's age to complete this topic MMR Vaccines Aged Out No longer eligi ble based on patient's age to complete this topic Meningococcal B Vaccine Aged Out No l onger eligible based on patient's age to complete this topic Pneumococcal Vaccine: Pediatrics (0 to 5 Years) and At-Risk Patients (6 to 49 Years) Aged Out No longer eligible based on patient's age to complete this topic RSV Immunization Patients Under 20 months Aged Out No longer eligible based on patient's age to complete this topic Insurance [facility] on file Care Teams Systems Integration Advisor Relationship Specialty Start Date End Date Physician, No Pcp PCP - General 09/21/24
[2024-11-02 08:35] VITALS: BP 110/80; PULSE 98; RESP 16; TEMP 36.9; O2SAT 98; BMI 28.3
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
== END 2024-11-02 10:03 | disposition home or self-care (01) ==
LOC: HO.HMCC 08:12
PROVIDERS: PCP Internal Medicine; Visit Provider Internal Medicine
DX: E78.2 Mixed hyperlipidemia (principal); R87.612 Low grade squamous intraepithelial lesion on cytologic smear of cervix (LGSIL); F41.8 Other specified anxiety disorders; R30.0 Dysuria; Z13.9 Encounter for screening, unspecified

== ENCOUNTER → 2024-11-02 08:11 | Outpatient (BNVA) | payer OTHER, SELFPAY | PROVIDERS: PCP Internal Medicine; Visit Provider Internal Medicine | DX: E78.2 Mixed hyperlipidemia (principal); R87.612 Low grade squamous intraepithelial lesion on cytologic smear of cervix (LGSIL); F41.8 Other specified anxiety disorders; R30.0 Dysuria | CPT/HCPCS: 81003; 99212 ==

== ENCOUNTER 2024-11-06 09:33 | Outpatient (REF) | payer OTHER, SELFPAY ==
[2024-11-06 12:42] LABS: Alanine Aminotransferase 15 U/L (0-31); Aspartate Amino Transferase 38 U/L (5-31); Cholesterol 289 mg/dL (<200); HDL Cholesterol 77 mg/dL (>40); Triglycerides 170 mg/dL (<150); Uric Acid 4.4 mg/dL (2.4-5.7)
== END 2024-11-06 09:34 | disposition home or self-care (01) ==
LOC: HO.HMGCLDS 09:33
PROVIDERS: PCP Internal Medicine; Visit Provider Internal Medicine
DX: E78.2 Mixed hyperlipidemia (principal); F41.8 Other specified anxiety disorders; E79.0 Hyperuricemia without signs of inflammatory arthritis and tophaceous disease
CPT/HCPCS: 36415; 80061; 84450; 84460; 84550

== ENCOUNTER 2024-12-03 10:25 | Outpatient (REF) | payer OTHER, SELFPAY | END 2024-12-03 10:26 | disposition home or self-care (01) | LOC: HO.LAB 10:25 | PROVIDERS: PCP Internal Medicine; Visit Provider Physician Assistant | DX: G43.109 Migraine with aura, not intractable, without status migrainosus (principal); Z13.89 Encounter for screening for other disorder; R39.9 Unspecified symptoms and signs involving the genitourinary system; R11.0 Nausea | CPT/HCPCS: 81003; 87086; 99212 ==

== ENCOUNTER 2024-12-03 10:25 | Outpatient (AMB) | payer OTHER, SELFPAY ==
--- NOTE | 2024-12-03 10:28 | MHC.OFFWIV ---
Intake Vital Signs 12/03/24 10:31 Height 5 ft 2 in Weight 160 lb BMI 29.3 BP 102/66 Blood Pressure Location Rt brachial Position Sitting Pulse 102 H Pulse Source Pulse Oximeter Temp 98.2 F Temp Source Oral Pulse Oximetry (%) 97 Oxygen Delivery Method Room Air Intake Visit Reasons: EP-migraine/blurry vision & uti Patient Tobacco Use Status: Never used Tobacco Allergies No Known Allergies Allergy (Verified 12/03/24 10:34) Do you need a note to return to daycare/school/sports/work: No HPI HPI Comments History of Present Illness Details History of Present Illness - The patient is a 24-year-old female presenting with migraines and urinary tract infection symptoms. - Migraine with aura: The patient experiences migraines with visual disturbances, including blurry vision and halos, which have increased in frequency, 4 times over the last month. Not particularly worse with menstrual cycle or after eating certain foods. - Triggers include certain lights and prolonged screen time, despite using prescription glasses for screen protection. - The patient manages symptoms with sada-sum-vegsixr medications like Excedrin, which provide limited relief, has not used anything yet today. Denies blurry vision or halo currently, has posterior headache. Had nausea but it resolved, no vomiting. - Associated symptoms include light sensitivity, and sound sensitivity, with relief achieved by resting in a dark, quiet room. - Urinary tract infection (suspected): The patient reports burning sensation during urination and increased frequency with difficulty initiating urination. - No fever or hematuria reported Physical Exam General: Cooperative, healthy appearing, comfortable, no acute distress and well developed Orientation: Patient oriented x3 Limitations: No limitations Head: Normal to inspection Ears: Hearing grossly normal bilaterally Nose: Normal External nose present Face and sinus: Normal facial exam Eyes: Appearance normal, both eyes and all related structures Neck: Normal visual inspection and Yes full ROM Respiratory: Normal respiratory effort and able to speak in complete sentences. Skin: No rashes or lesions noted Neuro: Patient oriented x3 Extremities: Normal to inspection [facility] Medical History (Updated 12/03/24 @ 10:54 by Gini Griffith PA-C) Low grade squamous intraepithelial lesion (LGSIL) on cervical Pap smear Hyperuricemia History of acne vulgaris Mixed dyslipidemia PCOS (polycystic ovarian syndrome) Hair thinning Anxiety with depression ADHD History of hemorrhoids Family history of thyroid cancer Surgical History No pertinent past surgical history Family History (Reviewed 11/02/24 @ 09: by Yarelis Crane MD) Mother Acquired hypothyroidism Mental health disorder Mother No problems noted. Maternal Grandmother Thyroid cancer Breast cancer Maternal Grandfather Essential hypertension Coronary artery arteriosclerosis Diabetes mellitus Brother Rheumatoid arthritis Paternal Grandmother Diabetes mellitus Paternal Grandfather Diabetes mellitus Lung cancer Social History (Reviewed 11/02/24 @ 09: by Yarelis Crane MD) Housing: Apartment Patient Tobacco Use Status: Never used Tobacco e-Cigarette/Vaping Use: Currently Using service: Yes Current occupational status: employed Cognitive needs: No Hearing needs: No Vision needs: Yes Review of Systems Const All systems reviewed & are unremarkable except as noted in HPI and below Physical Exam Vital Signs: Last Vital Signs Temp 98.2 F 12/03/24 10:31 Pulse 110 H 12/03/24 10:31 BP 102/66 12/03/24 10:31 Pulse Ox 97 12/03/24 10:31 Oxygen Delivery Method Room Air 12/03/24 10:31 BMI result Body Mass Index 29.3 Assessment & Plan Assessment & Plan (1) Migraine aura occurring with and without headache: Code(s): G43.109 - Migraine with aura, not intractable, without status migrainosus Plan: Plan Patient was informed and verbally consented to the use of an ambient scribe for clinic note documentation during this visit. 1. Migraine With Aura - The patient is advised to keep a log of migraine occurrences, triggers, and responses to treatment. - Recommended euvf-kaq-kilehly treatment includes 1000 mg of Tylenol and 600-800 mg of ibuprofen, with the option to add Benadryl for additional relief. - A prescription for Zofran is provided to manage nausea associated with migraines. - Follow-up with a primary care physician or neurologist is recommended if symptoms persist or worsen. 2. Urinary Tract Infection (Suspected) - A urinalysis showed no infection or blood, but a urine culture has been sent for confirmation. - The patient is advised to sweet pickle maker antibiotics and start them if symptoms worsen over the weekend. (2) Urinary tract infection symptoms: Code(s): R39.9 - Unspecified symptoms and signs involving the genitourinary system Plan: as above Orders: Orders Urine Culture Today N39.0 - Urinary tract infection, site not specified Medications: New ondansetron 4 mg PO Q8H PRN 10 tabs 0RF nausea and vomiting cefuroxime axetil 500 mg PO Q12H 10 tabs 0RF Coding Level of Care Code Est Pt Level 4 (07420) Diagnoses Migraine aura occurring with and without headache G43.109 Urinary tract infection symptoms R39.9
[2024-12-03 10:31] VITALS: BP 102/66; PULSE 102; TEMP 36.8; O2SAT 97; BMI 29.3
--- OUTSIDE RECORDS SUMMARY | 2024-12-03 11:28 | XMS_ITS | Clinical Summary ---
Author Organization [facility] Address [address] [place] [address] Phone Care Team Providers Care Plant Protection Officer Name Role Phone Physician, No Pcp Primary Care Provider Unavaila ble Allergies No known active allergies Medications No known medications Encounters Date Type Department Care Team Description 09/24/2024 Telephone Gynecologic Oncology [address] [address] Graciela Whitney MA 09/21/2024 10:16 PM EDT - 09/21/2024 11:34 PM EDT Emergency [facility] Emergency [address] [place] [address] Sherrill Mcelroy MD Vaginal cyst [...] 11/07/2017 Cervical Cancer Screening: Pap Smear 2020 Depression Screening 03/31/2024 Cholesterol Screening (Lipid Panel) 09/22/2024 HIV Screening 09/22/2024 Hepatitis C Screening 09/22/2024 Social Influencers of Health Screening 09/22/2024 COVID-19 Vaccine (3 - season) 2024 05/01/2020, 04/10/2020 Influenza Vaccine (#1) 2024 2, 01/22/2021, 02/03/2020, [...] patient's age to complete this topic Insurance [facility] Care Teams Plant Protection Officer Relationship Specialty Start Date End Date Physician, No Pcp PCP - General 09/21/24
== END 2024-12-03 12:17 | disposition home or self-care (01) ==
PROVIDERS: PCP Internal Medicine; Visit Provider Physician Assistant
DX: G43.109 Migraine with aura, not intractable, without status migrainosus (principal); R39.9 Unspecified symptoms and signs involving the genitourinary system; Z13.9 Encounter for screening, unspecified

== ENCOUNTER 2024-12-07 11:31 | Outpatient (AMB) | payer OTHER, SELFPAY ==
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
[2024-12-07 12:06] VITALS: BP 120/84; PULSE 94; RESP 16; TEMP 36.8; O2SAT 98; BMI 29.4
--- OUTSIDE RECORDS SUMMARY | 2024-12-07 14:04 | XMS_ITS | Clinical Summary ---
Author Organization [facility] Address [address] [place] [address] Phone Care Team Providers Care Drapery Worker Name Role Phone Physician, No Pcp Primary Care Provider Unavaila ble Allergies No known active allergies Medications No known medications Encounters Date Type Department Care Team Description 09/24/2024 Telephone Gynecologic Oncology [address] [address] Graciela Whitney MA 09/21/2024 10:16 PM EDT - 09/21/2024 11:34 PM EDT Emergency [facility] Emergency [address] [place] [address] Sherrill Mcelroy MD Vaginal cyst [...] patient's age to complete this topic Insurance [facility] Care Teams Drapery Worker Relationship Specialty Start Date End Date Physician, No Pcp PCP - General 09/21/24
== END 2024-12-07 12:39 | disposition home or self-care (01) ==
LOC: HO.HMCC 11:32
PROVIDERS: PCP Internal Medicine; Visit Provider Internal Medicine
DX: M54.2 Cervicalgia (principal); M54.9 Dorsalgia, unspecified; R53.83 Other fatigue; R51.9 Headache, unspecified; E78.2 Mixed hyperlipidemia

== ENCOUNTER 2024-12-07 11:31 | Outpatient (REF) | payer OTHER, SELFPAY ==
--- NOTE | ~2024-12-07 | XR_ITS ---
EXAMINATION: XR THORACIC SPINE CLINICAL INFORMATION: M54.9 - Dorsalgia, unspecified COMPARISON: None available. TECHNIQUE: AP and lateral views FINDINGS: No acute cortical disruption. No lytic or blastic lesions. Mild S-shaped curvature of the upper thoracic spine. XR/XR thoracic spine 2V IMPRESSION: Mild scoliosis upper thoracic spine versus positioning. Electronically signed by: Daniel Bond MD 12/07/2024 02:04 PM EDT
--- NOTE | ~2024-12-07 | XR_ITS ---
EXAMINATION: XR CERVICAL SPINE CLINICAL INFORMATION: M54.2 - Cervicalgia COMPARISON: None available. TECHNIQUE: AP oblique and lateral views FINDINGS: Craniocervical junction is intact. No acute cortical disruption. Possible grade 1 retrolisthesis C3-4 and C4-5 levels. No neuroforamina stenosis. Prominent transverse processes of C7, left greater than the right side.. XR/XR cervical spine 4V IMPRESSION: Grade 1 retrolisthesis C3-4 and C4-5. Electronically signed by: Daniel Bond MD 12/07/2024 02:03 PM EDT
[2024-12-07 16:08] LABS: MANUAL DIFF FLAG NO
[2024-12-07 16:20] LABS: Hematocrit 39.3 % (37.0-47.0); Hemoglobin 13.8 g/dl (12.0-16.0); Imm Gran Abs Auto 0.03 X10*3/uL (0.00-0.03); Imm Gran Pct Auto 0.3 % (0.0-0.4); Lymphocytes Absolute Auto 3.1 X10*3/uL (1.2-4.9); Mean Corpuscular HGB Conc 35.1 g/dl (31.0-35.0); Mean Corpuscular Hemoglobin 30.9 pg (27.0-33.0); Mean Corpuscular Volume 88.1 fL (80.0-98.0); NRBC Abs Auto 0.000 X10*3/uL (0.0-0.012); NRBC Pct Auto 0.0 /100WBC (0.0-0.2); Platelet Count 308 X10*3/uL (160-400); Red Blood Count 4.46 X10*6/uL (4.20-5.50); White Blood Count 9.3 X10*3/uL (4.8-10.8)
[2024-12-07 17:08] LABS: Folate 15.7 ng/mL (> or = 4.0); Vitamin B12 608 pg/mL (200-900)
== END 2024-12-07 11:32 | disposition home or self-care (01) ==
LOC: HO.HMGCX 11:31
PROVIDERS: PCP Internal Medicine; Visit Provider Internal Medicine
DX: R53.83 Other fatigue (principal); M54.2 Cervicalgia; R51.9 Headache, unspecified; M54.9 Dorsalgia, unspecified; E78.2 Mixed hyperlipidemia; Z79.899 Other long term (current) drug therapy
CPT/HCPCS: 36415; 72050; 72070; 82306; 82550; 82607; 82746; 84443; 85025; 99212

== ENCOUNTER → 2024-12-07 13:35 | Outpatient (BNV) | payer OTHER, SELFPAY | PROVIDERS: PCP Internal Medicine; Visit Provider Radiology Diagnostic Radiology | DX: M54.2 Cervicalgia (principal); M54.6 Pain in thoracic spine | CPT/HCPCS: 72050; 72070 ==

== ENCOUNTER 2024-12-13 09:02 | Outpatient (AMB) | payer OTHER, SELFPAY ==
--- NOTE | 2024-12-13 09:09 | AM.OFFWIN_ITS ---
Intake Vital Signs 3 12/13/24 09:13 Height 5 ft 2 in Weight 161 lb BMI 29.4 BP 110/70 Blood Pressure Location Rt brachial Position Sitting Pulse 97 Pulse Source Pulse Oximeter Temp 98.3 F Temp Source Oral Pulse Oximetry (%) 99 Intake Visit Reasons: EP bee sting, hives, lt arm weak, burning throat Patient Tobacco Use Status: Never used Tobacco Allergies No Known Allergies Allergy (Verified 12/13/24 09:13) Do you need a note to return to daycare/school/sports/work: Yes HPI HPI Comments 2 History of Present Illness0 Details 24 y/o Female patient who presents to [facility] walk in clinic with c/o Bee sting on her Torso. Reports that she was walking her Dog yesterday when a group of Yellow Jackets Stung her and the Dog. Reports some mild SOB and Chest tightness. She has not taken any OTC remedies. [facility] Medical History (Updated 12/13/24 @ 10:00 by Gege Palmer NP) Bee sting Dorsalgia Low grade squamous intraepithelial lesion (LGSIL) on cervical Pap smear Hyperuricemia History of acne vulgaris Mixed dyslipidemia PCOS (polycystic ovarian syndrome) Hair thinning Anxiety with depression ADHD History of hemorrhoids Family history of thyroid cancer Surgical History No pertinent past surgical history Family History Mother Acquired hypothyroidism Mental health disorder Mother No problems noted. 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) Current occupational status: employed Cognitive needs: No Hearing needs: No Vision needs: Yes Review of Systems Const All systems reviewed & are unremarkable except as noted in HPI and below Physical Exam Vital Signs: Last Vital Signs Temp 98.3 F 12/13/24 09:13 Pulse 97 12/13/24 09:13 BP 110/70 12/13/24 09:13 Pulse Ox 99 12/13/24 09:13 BMI result Body Mass Index 29.4 Const General: no acute distress Nutritional Appearance: overweight Orientation/consciousness: patient oriented x3 HEENT Head: Yes normocephalic Ears: external ears normal General nose exam: Normal external nose present Face and sinus: Yes normal facial exam, No erythema and No edema Mouth: moist mucous membranes Resp Effort & Inspection: normal respiratory effort Auscultation: clear to auscultation bilaterally Cardio Heart sounds: S1 normal heart sound present and S2 normal heart sound present Skin Rashes: rashes noted (Erythematous Large Hives Torso ) Full body images: 2 1. Erythematous Large Hives Torso Neuro General: patient oriented x3 Assessment & Plan Assessment & Plan (1) Bee sting: Code(s): T63.441A - Toxic effect of venom of bees, accidental (unintentional), initial encounter Qualifiers: Encounter type: initial encounter Injury intent: accidental or unintentional Qualified Code(s): T63.441A - Toxic effect of venom of bees, accidental (unintentional), initial encounter Plan: Ordered Prednisone and Hydrocortisone Cream. Ordered Cetirizine Cold Compress for Pain relief. Advised to go to ED if symptoms worsen. Medications: New 2 prednisone 50 mg PO DAILY 5 tabs 0RF 5 days T63.441A - Toxic effect of venom of bees, accidental (unintentional), initial encounter hydrocortisone 1% 1 appl topical TID PRN 28.4 grams 0RF skin irritation T63.441A - Toxic effect of venom of bees, accidental (unintentional), initial encounter cetirizine (Zyrtec) 10 mg PO BID 20 tabs 0RF 10 days T63.441A - Toxic effect of venom of bees, accidental (unintentional), initial encounter Coding Level of Care Code Est Pt Level 4 (78393) Diagnoses Bee sting, accidental or unintentional, initial encounter T63.441A Encounter type: initial encounter Injury intent: accidental or unintentional Time Spent (min) 20
[2024-12-13 09:13] VITALS: BP 110/70; PULSE 97; TEMP 36.8; O2SAT 99; BMI 29.4
--- OUTSIDE RECORDS SUMMARY | 2024-12-13 10:31 | XMS_ITS | Clinical Summary ---
Author Organization [facility] Address [address] [place] [address] Phone Care Team Providers Care Executive Administrative Assistant Name Role Phone Physician, No Pcp Primary Care Provider Unavaila ble Allergies No known active allergies Medications No known medications Encounters Date Type Department Care Team Description 09/24/2024 Telephone Gynecologic Oncology [address] [address] Graciela Whitney MA 09/21/2024 10:16 PM EDT - 09/21/2024 11:34 PM EDT Emergency [facility] Emergency [address] [place] [address] Sherrill Mcelroy MD Vaginal cyst [...] age to complete this topic Insurance [facility] Care Teams Executive Administrative Assistant Relationship Specialty Start Date End Date Physician, No Pcp PCP - General 09/21/24
== END 2024-12-13 09:53 | disposition home or self-care (01) ==
PROVIDERS: PCP Internal Medicine; Visit Provider Nurse Practitioner Family
DX: T63.441A Toxic effect of venom of bees, accidental (unintentional), initial encounter (principal)

== ENCOUNTER → 2024-12-13 09:02 | Outpatient (BNVA) | payer OTHER, SELFPAY | PROVIDERS: PCP Internal Medicine; Visit Provider Nurse Practitioner Family | DX: T63.441A Toxic effect of venom of bees, accidental (unintentional), initial encounter (principal) | CPT/HCPCS: 99212 ==

== ENCOUNTER 2025-01-25 14:00 | Outpatient (RCR) | payer OTHER, SELFPAY ==
--- NOTE | 2025-01-18 14:50 | MHC.PT.EP ---
[facility] [place] Office [place] Office [place] Office [address] [phone] F: [phone] F: [phone] F: [phone] F: [phone] Physical Therapy Plan of Care Date of Evaluation: 01/18/25 Date of Surgery: n/a Diagnosis: cervicalgia Assessment: Patient is a 24 year old female presenting to PT with complaints of pain in her neck. Pt reports onset of pain began about 7 years ago due to job demands of [employer]. She presents today with impairments in pain, cervical ROM, posture, periscap strength, radicular sx. 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 Pt expresses group home goal of reducing pain, and is motivated to work towards this in PT. Clinical presentation today is most consistent with signs and sx associated with neck pain and pt will benefit from skilled PT 2 week x 4 weeks to address the following problems and impairments noted upon evaluation: pain, cervical ROM, posture, periscap strength, radicular sx. These problems limit the patient with the following functional activities: ADLs, work. The prescribed treatment plan of care is medically necessary. Co-morbidities of anxiety with depression, ADHD were identified and taken into considerations of plan of care. Pt was educated on HEP, role of PT, prognosis, POC. Frequency and Duration: The patient will be seen 2 x week x 4 weeks Short Term Goals: Pt will demonstrate centralization of sx in 2 weeks. Pt will demonstrate improved periscap strength by 1/3 MMT grade in 2 weeks. Pt will demonstrate ability to move through available cervical ROM with min to no pain in 2 weeks. Graphic Specialist Goals: Pt will demonstrate improved NDI score by 10% in 4 weeks for improved functional mobility. Pt will demonstrate ability to work a full day with min to no pain in 4 weeks for return to PLOF. Pt will demonstrate ability to complete ADLs with min to no pain in 4 weeks for improved tolerance to self care. Treatment Plan: Modalities to reduce pain, spasms and effusion. Manual therapy to restore motion and function. Therapeutic exercise to improve strength and flexibility. Neuromuscular re-education for posture and balance. Therapeutic activities to return to functional activities of daily living. Electronically signed by: Clarissa Voss, PT, DPT, ATC Please sign and return to therapist. Thank you for your referral.
--- NOTE | 2025-03-02 08:11 | MHC.PT.DC ---
[facility] [place] Office [place] Office [place] Office [address] [phone] F: [phone] F: [phone] F: [phone] F: [phone] Physical Therapy Discharge Report Diagnosis: cervicalgia Date of Surgery: n/a Date of Evaluation: 01/18/25 Date of Discharge: 03/02/25 Treatments to Date: 2 Cancellations to Date: 3 No Shows to Date: 0 Discharge Status: Discharge Summary: Pt has not attended skilled PT in >30 days therefore to be d/c per policy. Electronically signed by: Clarissa Voss, PT, DPT, ATC Please sign and return to therapist. Thank you for your referral.
== END 2025-03-02 08:11 | disposition home or self-care (01) ==
LOC: HO.PTCHIC 14:00
PROVIDERS: PCP Internal Medicine; Visit Provider Internal Medicine
DX: M54.2 Cervicalgia (principal); M54.9 Dorsalgia, unspecified
CPT/HCPCS: 97110; 97140; 97161

== ENCOUNTER 2025-01-31 12:30 | Outpatient (AMB) | payer OTHER, SELFPAY ==
[2025-01-31 12:33] VITALS: BP 130/84; PULSE 109; TEMP 36.6; O2SAT 100; BMI 29.3
--- NOTE | 2025-01-31 12:33 | AM.OFFWIN_ITS ---
Intake Vital Signs 01/31/25 12:33 Height 5 ft 2 in Weight 160 lb BMI 29.3 BP 130/84 Blood Pressure Location Rt brachial Position Sitting Pulse 109 H Pulse Source Pulse Oximeter Temp 97.8 F Temp Source Oral Pulse Oximetry (%) 100 Oxygen Delivery Method Room Air Intake Visit Reasons: EP Stomach bug? [phone](car) Intake Note: Patient presents with c/o diarrhea, nausea, weakness, stomach ache, dry heaving x2 days. Patient Tobacco Use Status: Never used Tobacco Allergies No Known Allergies Allergy (Verified 01/31/25 12:38) Medication List - Last Reconciled 01/31/25 by Gege aPlmer NP bupropion HCl XL (Wellbutrin XL) 75 mg PO QAM cetirizine (Zyrtec) 10 mg PO BID 10 days drospirenone-ethinyl estradiol 3-0.03 mg (Karen) 1 tab PO DAILY fluoxetine 20 mg PO DAILY hydrocortisone 1% 1 appl topical TID PRN Do you need a note to return to daycare/school/sports/work: Yes HPI HPI Comments History of Present Illness Details 24 y/o Female patient [facility] with c/o diarrhea, nausea, body weakness, stomach ache, and dry heaving for the past 2 days. Denies any diet changes or new foods. Denies any recent sick contacts. Denies fevers but reports body chills. Reports poor appetite and decreased oral intake due to nausea. Denies blood in stool, melena, chest pain, or shortness of breath. [facility] Medical History (Updated 01/31/25 @ 13:09 by Gege Palmer NP) Gastritis Bee sting Dorsalgia Low grade squamous intraepithelial lesion (LGSIL) on cervical Pap smear Hyperuricemia History of acne vulgaris Mixed dyslipidemia PCOS (polycystic ovarian syndrome) Hair thinning Anxiety with depression ADHD History of hemorrhoids Family history of thyroid cancer Surgical History No pertinent past surgical history Family History Mother Acquired hypothyroidism Mental health disorder Mother No problems noted. 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) Current occupational status: employed Cognitive needs: No Hearing needs: No Vision needs: Yes Review of Systems Const All systems reviewed & are unremarkable except as noted in HPI and below Physical Exam Vital Signs: Last Vital Signs Temp 97.8 F 01/31/25 12:33 Pulse 109 H 01/31/25 12:33 BP 130/84 01/31/25 12:33 Pulse Ox 100 01/31/25 12:33 Oxygen Delivery Method Room Air 01/31/25 12:33 BMI result Body Mass Index 29.3 Const General: no acute distress Nutritional Appearance: overweight Orientation/consciousness: patient oriented x3 Resp Effort & Inspection: normal respiratory effort Auscultation: clear to auscultation bilaterally Cardio Heart sounds: S1 normal heart sound present and S2 normal heart sound present GI Inspection: Yes obesity Palpation (GI): Soft to palpation, not firm, Tenderness to palpation present (GI), no guarding, not rigid and No hepatosplenomegaly present Auscultation: normal bowel sounds Rectal Exam - Female: deferred Neuro General: patient oriented x3, gait normal and moves all extremities Psych Speech and movement: Normal speech and movement present Assessment & Plan Assessment & Plan (1) Gastritis: Code(s): K29.70 - Gastritis, unspecified, without bleeding Qualifiers: Gastritis type: other gastritis Chronicity: acute Gastritis bleeding: without bleeding Qualified Code(s): K29.00 - Acute gastritis without bleeding Plan: Acute gastroenteritis ? likely viral etiology. Dehydration ? secondary to diarrhea and poor oral intake. Differential diagnoses: Food borne illness, Early bacterial gastroenteritis, Gastritis and Viral syndrome. Encourage oral hydration (water, electrolyte solutions such as Pedialyte or Gatorade). [place] diet (BRAT: bananas, rice, applesauce, toast) as tolerated. Prescribe Ondansetron (Zofran) 4 mg PO q8h PRN for nausea. May use Loperamide (Imodium) only if no fever or blood in stool and symptoms persist. Rest and monitor for worsening symptoms. Orders: Orders SARS-CoV2/FLU/RSV Today R09.89 - Other specified symptoms and signs involving t he circulatory and respiratory systems Medications: New ondansetron 8 mg PO Q8H 30 tabs 0RF K29.00 - Acute gastritis without bleeding metoclopramide HCl (Reglan) 5 mg PO Q6H 20 tabs 0RF K29.00 - Acute gastritis without bleeding Coding Level of Care Code Est Pt Level 4 (66919) Diagnoses Other acute gastritis without hemorrhage K29.00 Gastritis type: other gastritis Chronicity: acute Gastritis bleeding: without bleeding Time Spent (min) 20
--- OUTSIDE RECORDS SUMMARY | 2025-01-31 15:36 | XMS_ITS | Clinical Summary ---
Author Organization [facility] Address [address] [place] [address] Phone Care Team Providers Care Director Ambulatory Name Role Phone Physician, No Pcp Primary Care Provider Unavaila ble Allergies No known active allergies Medications No known medications Surgical History Surgery Date Site/Laterality Comments TONSILLECTOMY [...] (2 - Td or Tdap) 10/07/2027 10/06/2017 RSV Immunization Adult Patients (1 - 1-dose 75+ series) 2074 Meningococcal ACWY Vaccine Completed 10/06/2017 Varicella Vaccines [...] patient's age to complete this topic Insurance [facility] Care Teams Director Ambulatory Relationship Specialty Start Date End Date Physician, No Pcp PCP - General 09/21/24
== END 2025-01-31 13:15 | disposition home or self-care (01) ==
PROVIDERS: PCP Internal Medicine; Visit Provider Nurse Practitioner Family
DX: K29.00 Acute gastritis without bleeding (principal)

== ENCOUNTER 2025-01-31 12:30 | Outpatient (REF) | payer OTHER, SELFPAY ==
[2025-01-31 17:12] LABS: Resp Syncy Virus RNA Qual PCR NEGATIVE (Negative); SARS COV2 PCR INHOUSE NEGATIVE (Negative)
== END 2025-01-31 12:31 | disposition home or self-care (01) ==
LOC: HO.LAB 12:30
PROVIDERS: PCP Internal Medicine; Visit Provider Nurse Practitioner Family
DX: K29.00 Acute gastritis without bleeding (principal); R09.89 Other specified symptoms and signs involving the circulatory and respiratory systems; Z79.899 Other long term (current) drug therapy
CPT/HCPCS: 87637; 99212

== ENCOUNTER 2025-02-02 09:58 | Outpatient (AMB) | payer OTHER, SELFPAY ==
[2025-02-02 10:06] VITALS: BP 120/70; PULSE 117; RESP 16; TEMP 36.4; O2SAT 98; BMI 30.5
--- NOTE | 2025-02-02 10:06 | AM.OFFWIN_ITS ---
Intake Vital Signs 02/02/25 10:06 Height 5 ft 2 in Weight 167 lb BMI 30.5 BP 120/70 Blood Pressure Location Rt brachial Position Sitting Respiration 16 Pulse 117 H Pulse Source Pulse Oximeter Temp 97.5 F Temp Source Oral Pulse Oximetry (%) 98 Oxygen Delivery Method Room Air Intake Visit Reasons: EP-stomach bug Intake Note: Pt is here today c/o abdominal pain and bodyaches was seen 01/31/25 for the same sx's no improvement Patient Tobacco Use Status: Never used Tobacco Allergies No Known Allergies Allergy (Verified 02/02/25 10:12) HPI HPI Comments History of Present Illness Details History of Present Illness - The patient is a 24-year-old female pr esenting with gastrointestinal symptoms including stomach pain and diarrhea. - The symptoms began 4 days ago with a g eneral feeling of malaise, initially thought to be a cold, and progressed to stomach issues by Friday. - The patient experienced diarrhea initi ally, which has since resolved, but now reports constipation and difficulty with bowel movements. - She reports dizziness and feeling hot after eating, with a noted lack of fluid intake leading to dehydration. - The patient has not experienced any fe jose but reports chills and sweating, indicating possible insensible fluid loss. - Previous testing for flu, COVID-19, an d RSV returned negative results, suggesting a viral infection not typically tested for. Physical Exam General: Cooperative, healthy appearing, comfortable, no acute distress and well developed Orientation: Patient oriented x3 Limitations: No limitations Head: Normal to inspection Ears: Hearing grossly normal bilaterally Nose: Normal External nose present Face and sinus: Normal facial exam Eyes: Appearance normal, both eyes and all related structures Neck: Normal visual inspection and Yes full ROM Respiratory: Normal respiratory effort and able to speak in complete sentences. GI: normoactive BS, soft, negative mcburneys, negative murphys, no TTP throughout abdomen Skin: No rashes or lesions noted Neuro: Patient oriented x3, gait normal Extremities: Normal to inspection, moving all extremities normally Review of Systems - Gastrointestinal: Reports initial diar clark, now constipation, and stomach pain. Denies blood or black stools. - Neurological: Reports dizziness. - General: Reports chills and sweating. Denies fever. All systems reviewed and are unremarkable except as noted in HPI [facility] Medical History (Updated 02/02/25 @ 10:38 by Gini Griffith PA-C) Gastritis Bee sting Dorsalgia Low grade squamous intraepithelial lesion (LGSIL) on cervical Pap smear Hyperuricemia History of acne vulgaris Mixed dyslipidemia PCOS (polycystic ovarian syndrome) Hair thinning Anxiety with depression ADHD History of hemorrhoids Family history of thyroid cancer Surgical History No pertinent past surgical history Family History Mother Acquired hypothyroidism Mental health disorder Mother No problems noted. 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) Current occupational status: employed Cognitive needs: No Hearing needs: No Vision needs: Yes Physical Exam Vital Signs: Last Vital Signs Temp 97.5 F 02/02/25 10:06 Pulse 117 H 02/02/25 10:06 Resp 16 02/02/25 10:06 BP 120/70 02/02/25 10:06 Pulse Ox 98 02/02/25 10:06 Oxygen Delivery Method Room Air 02/02/25 10:06 BMI result Body Mass Index 30.5 Assessment & Plan Assessment & Plan (1) Gastritis: Code(s): K29.70 - Gastritis, unspecified, without bleeding Qualifiers: Gastritis type: other gastritis Chronicity: acute Gastritis bleeding: without bleeding Qualified Code(s): K29.00 - Acute gastritis without bleeding Plan: Assessment and Plan 1. Viral gastroenteritis - The patient is advised to maintain hydration with electrolyte drinks and water to address dehydration. - A bland diet is recommended to avoid exacerbating gastrointestinal symptoms. - If unable to maintain hydration orally, ER visit for IV fluids is advised. - Work note provided for tomorrow. (2) Dehydration, mild: Code(s): E86.0 - Dehydration Plan: 2. Dehydration - The patient is instructed to increase fluid intake, alternating between electrolyte solutions and water. - Monitoring of heart rate and symptoms is advised, with ER visit recommended if symptoms worsen or she cannot maintain intake of fluids. Coding Level of Care Code Est Pt Level 3 (37749) Diagnoses Other acute gastritis without hemorrhage K29.00 Gastritis type: other gastritis Chronicity: acute Gastritis bleeding: without bleeding Dehydration, mild E86.0
--- OUTSIDE RECORDS SUMMARY | 2025-02-02 11:28 | XMS_ITS | Clinical Summary ---
Author Organization [facility] Address [address] [place] [address] Phone Care Team Providers Care Animal Assistant Name Role Phone Physician, No Pcp [...] patient's age to complete this topic Insurance [facility] Care Teams Animal Assistant Relationship Specialty Start Date End Date Physician, No Pcp PCP - General 09/21/24
== END 2025-02-02 11:36 | disposition home or self-care (01) ==
PROVIDERS: PCP Internal Medicine; Visit Provider Physician Assistant
DX: K29.00 Acute gastritis without bleeding (principal); E86.0 Dehydration

== ENCOUNTER → 2025-02-02 09:58 | Outpatient (BNVA) | payer OTHER, SELFPAY | PROVIDERS: PCP Internal Medicine; Visit Provider Physician Assistant | DX: K29.00 Acute gastritis without bleeding (principal); E86.0 Dehydration | CPT/HCPCS: 99212 ==

== ENCOUNTER 2025-03-16 07:24 | Outpatient (REF) | payer OTHER, SELFPAY ==
[2025-03-16 11:09] LABS: Alanine Aminotransferase 28 U/L (0-31); Albumin Level 4.6 g/dL (3.5-5.0); Alkaline Phosphatase 68 U/L (39-117); Aspartate Amino Transferase 33 U/L (5-31); Total Protein 7.4 g/dL (6.5-8.0)
[2025-03-17 12:41] LABS: Cholesterol 306 mg/dL (<200); HDL Cholesterol 57 mg/dL (>40); Triglycerides 140 mg/dL (<150)
== END 2025-03-16 07:25 | disposition home or self-care (01) ==
LOC: HO.HMGCLDS 07:24
PROVIDERS: PCP Internal Medicine; Visit Provider Internal Medicine
DX: E78.2 Mixed hyperlipidemia (principal)
CPT/HCPCS: 36415; 80061; 80076

== ENCOUNTER 2025-03-17 09:49 | Outpatient (AMB) | payer OTHER, SELFPAY ==
[2025-03-17 10:01] VITALS: BP 108/84; PULSE 124; RESP 16; TEMP 36.6; O2SAT 98; BMI 31.6
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
--- OUTSIDE RECORDS SUMMARY | 2025-03-17 11:54 | XMS_ITS | Clinical Summary ---
Author Organization [facility] Address [address] [place] [address] Phone Care Team Providers Care Bull Chain Operator Name Role Phone Physician, No Pcp Primary [...] Orientation Straight 09/21/2024 11 :25 PM EDT Last Filed Vital Signs Vital Sign Reading [...] age to complete this topic Insurance [facility] Care Teams Bull Chain Operator Relationship Specialty Start Date End Date Physician, No Pcp PCP - General 09/21/24
== END 2025-03-17 11:09 | disposition home or self-care (01) ==
LOC: HO.HMCC 09:49
PROVIDERS: PCP Internal Medicine; Visit Provider Internal Medicine
DX: Z23 Encounter for immunization (principal)

== ENCOUNTER → 2025-03-17 09:49 | Outpatient (BNVA) | payer OTHER, SELFPAY | PROVIDERS: PCP Internal Medicine; Visit Provider Internal Medicine | DX: R20.0 Anesthesia of skin (principal); R20.2 Paresthesia of skin; E66.811 Obesity, class 1; Z68.31 Body mass index [BMI] 31.0-31.9, adult; Z13.31 Encounter for screening for depression; Z13.39 Encounter for screening examination for other mental health and behavioral disorders; Z23 Encounter for immunization | CPT/HCPCS: 90471; 90656; 96127; 99212 ==